=== PATIENT | male | born 1945 | race Caucasian/White ===

== ENCOUNTER 2021-01-26 16:34 | Inpatient (IN) | payer OTHER ==
[2021-01-26] MEDS ORDERED: ACETAMINOPHEN 1000 MG/100 ML VIAL IVPB ONE (18:45)
[2021-01-26] MEDS ORDERED: morphine CARPU-JECT 4 MG/1 ML DISP.SYRIN IVPUSH ONE (18:45)
[2021-01-26] MEDS ORDERED: ACETAMINOPHEN INJECTION 100 ML IVPB ONE (18:56)
[2021-01-26] MEDS ORDERED: morphine SULFATE 4 MG/ML VIAL ONE (18:56)
[2021-01-26] MEDS ORDERED: VANCOMYCIN 1 GM in D5W (PRE-DOCKED) 1,000 MG/250 ML IVPB ONE (19:03)
[2021-01-26] MEDS ORDERED: PIPERACILLIN/TAZOB 4.5 GM 4.5 GM in DEXTROSE 5%-WATER 100 ML IVPB ONE (19:03)
[2021-01-26 19:17] LABS: BASO % 0.7 % (0-2.0); EOS % 1.6 % (0-4.5); HEMATOCRIT 33.5 % (35.4-49); HEMOGLOBIN 11.1 GM/dL (11.7-16.9); LYMPH % 17.7 % (8-40); MEAN CELL VOLUME 93.7 fl (80-96); MEAN PLT VOLUME 8.7 fl (7.5-11.1); PLATELET COUNT 270 10^3/uL (134-434); RBC 3.58 M/mm3 (4.00-5.60); RDW 15.5 % (11.9-15.9); WHITE BLOOD COUNT 13.6 K/mm3 (4.0-10.0)
[2021-01-26 19:26] LABS: INR 1.19 (0.83-1.09)
[2021-01-26 19:29] LABS: ACTIVATED PTT 31.4 SECONDS (25.2-36.5)
[2021-01-26 19:40] LABS: CALCIUM 9.5 mg/dL (8.5-10.1)
[2021-01-26 19:41] LABS: ALBUMIN 3.1 g/dl (3.4-5.0); BLOOD UREA NITROGEN 23.4 mg/dL (7-18)
[2021-01-26] MEDS ORDERED: VANCOMYCIN 1 GRAM (PRE-DOCKED) 1,000 MG/250 ML BAG IVPB ONE (19:41)
[2021-01-26] MEDS ORDERED: PIPERACILLIN/TAZOB 4.5 GM 4.5 GM/100 ML BAG IVPB ONE (19:41)
[2021-01-26 19:44] LABS: CREATININE 1.2 mg/dL (0.55-1.3)
[2021-01-26 19:45] LABS: BILIRUBIN,TOTAL 0.3 mg/dL (0.2-1); TOT PROT 7.9 g/dl (6.4-8.2)
[2021-01-26 21:47] LABS: ERYTHROCYTE SEDIMENTATION RATE 95 mm/hr (0-20)
[2021-01-26] MEDS ORDERED: LISINOPRIL 10 MG TABLET PO SCH (22:00)
[2021-01-26] MEDS ORDERED: LISINOPRIL 5 MG TABLET PO SCH (22:00)
[2021-01-27] MEDS: INSULIN SLIDING SCALE (NOVOLOG) 1 VIAL SQ SCH ×5 (00:09→21:29)
[2021-01-27] MEDS: ATORVASTATIN CA 80 MG TABLET (FP) PO SCH ×2 (00:10→21:21)
[2021-01-27] MEDS: LISINOPRIL 20 MG TABLET PO SCH ×2 (00:10→21:22)
[2021-01-27] MEDS: GABAPENTIN 300 MG CAPSULE PO SCH ×3 (00:10→21:22)
[2021-01-27] MEDS ORDERED: PIPERACILLIN/TAZOB 3.375 GM 3.375 GM in DEXTROSE 5%-WATER - 50 ML IVPB SCH ×2 (02:00→10:00)
[2021-01-27] MEDS: HYDROCHLOROTHIAZIDE 12.5 MG CAPSULE (FP) PO SCH (06:34)
[2021-01-27 06:53] LABS: BASO % 0.6 % (0-2.0); EOS % 3.3 % (0-4.5); HEMATOCRIT 29.3 % (35.4-49); LYMPH % 20.4 % (8-40); MCH 31.7 pg (25.7-33.7); MCHC 34.1 g/dl (32.0-35.9); MEAN CELL VOLUME 92.8 fl (80-96); MEAN PLT VOLUME 8.9 fl (7.5-11.1); NEUT % 65.7 % (42.8-82.8); PLATELET COUNT 249 10^3/uL (134-434); RBC 3.16 M/mm3 (4.00-5.60); RDW 15.4 % (11.9-15.9); WHITE BLOOD COUNT 11.4 K/mm3 (4.0-10.0)
[2021-01-27 06:56] LABS: ALBUMIN 2.5 g/dl (3.4-5.0); BLOOD UREA NITROGEN 23.7 mg/dL (7-18); CALCIUM 8.4 mg/dL (8.5-10.1)
[2021-01-27 07:00] LABS: CREATININE 1.3 mg/dL (0.55-1.3); PHOSPHOROUS 3.7 mg/dL (2.5-4.9)
[2021-01-27] MEDS ORDERED: HYDROCHLOROTHIAZIDE 25 MG TABLET (FP) PO SCH (07:00)
[2021-01-27 07:01] LABS: BILIRUBIN,TOTAL 0.5 mg/dL (0.2-1); MAGNESIUM 1.7 mg/dL (1.8-2.4); TOT PROT 6.7 g/dl (6.4-8.2); URIC ACID 5.2 mg/dL (2.6-7.2)
[2021-01-27] MEDS ORDERED: MAGNESIUM 1GM/D5W 100ML - 100 ML IVPB IVPB ONE (07:19)
[2021-01-27] MEDS ORDERED: PIPERACILLIN/TAZOBACTAM 3.375 GM VIAL IVPB ONE ×2 (08:46→17:38)
[2021-01-27] MEDS ORDERED: DEXTROSE 5%-WATER - 50 ML IVPB ONE ×2 (08:46→17:39)
[2021-01-27] MEDS ORDERED: VANCOMYCIN 1,000 MG in DEXTROSE 5%-WATER - 250 ML IVPB SCH (09:00)
[2021-01-27] MEDS: ALLOPURINOL 300 MG TABLET (FP) PO SCH (09:15)
[2021-01-27] MEDS: ASPIRIN COATED 81 MG TABLET.EC PO SCH (09:16)
[2021-01-27] MEDS: ENOXAPARIN NA (PORCINE) 40 MG/0.4 ML DISP.SYRIN SQ SCH (09:18)
[2021-01-27] MEDS: METOPROLOL TARTRATE 25 MG TABLET (FP) PO SCH ×2 (09:18→21:22)
[2021-01-27] MEDS: VANCOMYCIN 1 GRAM (PRE-DOCKED) 1,000 MG/250 ML BAG IVPB SCH ×2 (10:43→21:22)
[2021-01-27] MEDS ORDERED: ACETAMINOPHEN 1000 MG/100 ML VIAL IVPB ONE (14:07)
[2021-01-27] MEDS: COLLAGENASE CLOSTRIDIUM HIST. 30 GRAMS TUBE TP SCH (17:26)
[2021-01-27] MEDS: PIPERACILLIN/TAZOB 3.375 GM 3.375 GM in DEXTROSE 5%-WATER - 50 ML IVPB SCH (18:09)
[2021-01-27] MEDS ORDERED: INSULIN (NOVOLOG) ASPART 100 UNITS/ML 10ML VIAL ONE (21:16)
[2021-01-27] MEDS ORDERED: morphine SULFATE 4 MG/ML VIAL IVPUSH ONE (22:22)
[2021-01-28] MEDS ORDERED: PIPERACILLIN/TAZOBACTAM 3.375 GM VIAL IVPB ONE ×3 (01:54→17:35)
[2021-01-28] MEDS ORDERED: DEXTROSE 5%-WATER - 50 ML IVPB ONE ×3 (01:55→17:35)
[2021-01-28] MEDS: PIPERACILLIN/TAZOB 3.375 GM 3.375 GM in DEXTROSE 5%-WATER - 50 ML IVPB SCH ×3 (02:13→17:56)
[2021-01-28] MEDS: HYDROCHLOROTHIAZIDE 12.5 MG CAPSULE (FP) PO SCH (06:06)
[2021-01-28] MEDS: INSULIN SLIDING SCALE (NOVOLOG) 1 VIAL SQ SCH ×4 (06:48→22:59)
[2021-01-28 07:47] LABS: BASO % 0.9 % (0-2.0); HEMATOCRIT 28.5 % (35.4-49); HEMOGLOBIN 9.9 GM/dL (11.7-16.9); LYMPH % 22.2 % (8-40); MCH 31.6 pg (25.7-33.7); MCHC 34.8 g/dl (32.0-35.9); MEAN CELL VOLUME 90.8 fl (80-96); MEAN PLT VOLUME 8.4 fl (7.5-11.1); MONO % 9.1 % (3.8-10.2); NEUT % 65.8 % (42.8-82.8); PLATELET COUNT 253 10^3/uL (134-434); RBC 3.14 M/mm3 (4.00-5.60); RDW 15.5 % (11.9-15.9); WHITE BLOOD COUNT 12.9 K/mm3 (4.0-10.0)
[2021-01-28 08:15] LABS: CALCIUM 8.4 mg/dL (8.5-10.1)
[2021-01-28 08:16] LABS: ALBUMIN 2.5 g/dl (3.4-5.0); BLOOD UREA NITROGEN 31.7 mg/dL (7-18)
[2021-01-28 08:18] LABS: MAGNESIUM 1.8 mg/dL (1.8-2.4)
[2021-01-28 08:20] LABS: CREATININE 1.6 mg/dL (0.55-1.3); PHOSPHOROUS 3.7 mg/dL (2.5-4.9)
[2021-01-28 08:21] LABS: BILIRUBIN,TOTAL 0.7 mg/dL (0.2-1); TOT PROT 6.5 g/dl (6.4-8.2)
[2021-01-28] MEDS: GABAPENTIN 300 MG CAPSULE PO SCH ×2 (10:15→22:56)
[2021-01-28] MEDS: ASPIRIN COATED 81 MG TABLET.EC PO SCH (10:15)
[2021-01-28] MEDS: METOPROLOL TARTRATE 25 MG TABLET (FP) PO SCH ×2 (10:15→22:56)
[2021-01-28] MEDS: ALLOPURINOL 300 MG TABLET (FP) PO SCH (10:15)
[2021-01-28] MEDS: ENOXAPARIN NA (PORCINE) 40 MG/0.4 ML DISP.SYRIN SQ SCH (10:17)
[2021-01-28] MEDS: COLLAGENASE CLOSTRIDIUM HIST. 30 GRAMS TUBE TP SCH (12:48)
[2021-01-28] MEDS ORDERED: POVIDONE-IODINE 10% SOLN 118 ML BOTTLE TP ONE (17:28)
[2021-01-28] MEDS ORDERED: traMADol HCL 50 MG TABLET PO PRN (17:29)
[2021-01-28] MEDS ORDERED: MELATONIN 5 MG TABLETS PO PRN (17:30)
[2021-01-28] MEDS: ACETAMINOPHEN 325 MG TABLET (FP) PO PRN (18:33)
[2021-01-28] MEDS ORDERED: INSULIN (NOVOLOG) ASPART 100 UNITS/ML 10ML VIAL ONE (21:47)
[2021-01-28] MEDS: ATORVASTATIN CA 80 MG TABLET (FP) PO SCH (22:56)
[2021-01-29] MEDS ORDERED: DEXTROSE 5%-WATER - 50 ML IVPB ONE ×2 (01:54→09:14)
[2021-01-29] MEDS ORDERED: PIPERACILLIN/TAZOBACTAM 3.375 GM VIAL IVPB ONE ×2 (01:54→09:14)
[2021-01-29] MEDS: PIPERACILLIN/TAZOB 3.375 GM 3.375 GM in DEXTROSE 5%-WATER - 50 ML IVPB SCH ×2 (02:51→09:18)
[2021-01-29] MEDS: INSULIN SLIDING SCALE (NOVOLOG) 1 VIAL SQ SCH ×4 (06:34→21:46)
[2021-01-29 09:06] LABS: BASO % 0.6 % (0-2.0); EOS % 3.7 % (0-4.5); HEMATOCRIT 28.4 % (35.4-49); HEMOGLOBIN 9.6 GM/dL (11.7-16.9); LYMPH % 22.6 % (8-40); MCH 31.5 pg (25.7-33.7); MCHC 33.7 g/dl (32.0-35.9); MEAN CELL VOLUME 93.4 fl (80-96); MEAN PLT VOLUME 8.6 fl (7.5-11.1); MONO % 9.2 % (3.8-10.2); NEUT % 63.9 % (42.8-82.8); PLATELET COUNT 279 10^3/uL (134-434); RBC 3.04 M/mm3 (4.00-5.60); RDW 15.2 % (11.9-15.9)
[2021-01-29] MEDS: ENOXAPARIN NA (PORCINE) 40 MG/0.4 ML DISP.SYRIN SQ SCH (09:18)
[2021-01-29] MEDS: ASPIRIN COATED 81 MG TABLET.EC PO SCH (09:18)
[2021-01-29] MEDS: GABAPENTIN 300 MG CAPSULE PO SCH ×2 (09:18→21:40)
[2021-01-29] MEDS: METOPROLOL TARTRATE 25 MG TABLET (FP) PO SCH ×2 (09:18→21:40)
[2021-01-29] MEDS: ALLOPURINOL 300 MG TABLET (FP) PO SCH (09:19)
[2021-01-29] MEDS: COLLAGENASE CLOSTRIDIUM HIST. 30 GRAMS TUBE TP SCH (09:20)
[2021-01-29 09:30] LABS: ALBUMIN 2.4 g/dl (3.4-5.0); BLOOD UREA NITROGEN 38.4 mg/dL (7-18); CALCIUM 8.3 mg/dL (8.5-10.1); MAGNESIUM 1.9 mg/dL (1.8-2.4)
[2021-01-29 09:33] LABS: CREATININE 1.9 mg/dL (0.55-1.3); PHOSPHOROUS 4.3 mg/dL (2.5-4.9)
[2021-01-29 09:34] LABS: BILIRUBIN,TOTAL 0.5 mg/dL (0.2-1)
[2021-01-29 09:36] LABS: TOT PROT 6.6 g/dl (6.4-8.2)
[2021-01-29] MEDS ORDERED: SODIUM CHLORIDE 100 ML IVPB ONE (18:28)
[2021-01-29] MEDS ORDERED: AMPICILLIN NA/SULBACTAM NA 3 GM VIAL ONE (18:28)
[2021-01-29] MEDS: AMPICILLIN NA/SULBACTAM NA 3 GM in SODIUM CHLORIDE 100 ML IVPB SCH (18:33)
[2021-01-29] MEDS: ATORVASTATIN CA 80 MG TABLET (FP) PO SCH (21:40)
[2021-01-29] MEDS: ACETAMINOPHEN 325 MG TABLET (FP) PO PRN (21:40)
[2021-01-29] MEDS: HEPARIN NA (PORCINE) 5,000 UNITS/ML 1ML VIAL SQ SCH (21:40)
[2021-01-29] MEDS: valACYclovir HCL 500 MG TABLET (FP) PO SCH (21:40)
[2021-01-30] MEDS ORDERED: AMPICILLIN NA/SULBACTAM NA 3 GM VIAL ONE ×3 (00:50→17:43)
[2021-01-30] MEDS ORDERED: SODIUM CHLORIDE 100 ML IVPB ONE ×3 (00:50→17:43)
[2021-01-30] MEDS: AMPICILLIN NA/SULBACTAM NA 3 GM in SODIUM CHLORIDE 100 ML IVPB SCH ×3 (01:02→18:01)
[2021-01-30] MEDS: HYDROCHLOROTHIAZIDE 12.5 MG CAPSULE (FP) PO SCH (06:27)
[2021-01-30] MEDS: HEPARIN NA (PORCINE) 5,000 UNITS/ML 1ML VIAL SQ SCH ×3 (06:27→21:37)
[2021-01-30] MEDS: INSULIN SLIDING SCALE (NOVOLOG) 1 VIAL SQ SCH ×4 (06:40→21:35)
[2021-01-30 09:05] LABS: BASO % 0.8 % (0-2.0); HEMATOCRIT 30.2 % (35.4-49); HEMOGLOBIN 10.2 GM/dL (11.7-16.9); LYMPH % 16.8 % (8-40); MCH 31.8 pg (25.7-33.7); MCHC 33.8 g/dl (32.0-35.9); MEAN CELL VOLUME 93.9 fl (80-96); MEAN PLT VOLUME 8.7 fl (7.5-11.1); MONO % 8.3 % (3.8-10.2); NEUT % 70.1 % (42.8-82.8); PLATELET COUNT 345 10^3/uL (134-434); RBC 3.22 M/mm3 (4.00-5.60); RDW 15.2 % (11.9-15.9); WHITE BLOOD COUNT 10.5 K/mm3 (4.0-10.0)
[2021-01-30] MEDS: ALLOPURINOL 300 MG TABLET (FP) PO SCH (09:06)
[2021-01-30] MEDS: METOPROLOL TARTRATE 25 MG TABLET (FP) PO SCH ×2 (09:06→21:38)
[2021-01-30] MEDS: GABAPENTIN 300 MG CAPSULE PO SCH ×2 (09:06→21:36)
[2021-01-30] MEDS: ASPIRIN COATED 81 MG TABLET.EC PO SCH (09:06)
[2021-01-30] MEDS: TAMSULOSIN HCL 0.4 MG CAP PO SCH (09:06)
[2021-01-30] MEDS: valACYclovir HCL 500 MG TABLET (FP) PO SCH (09:10)
[2021-01-30] MEDS: COLLAGENASE CLOSTRIDIUM HIST. 30 GRAMS TUBE TP SCH (09:11)
[2021-01-30 09:29] LABS: CALCIUM 9.3 mg/dL (8.5-10.1)
[2021-01-30 09:31] LABS: ALBUMIN 2.7 g/dl (3.4-5.0); BLOOD UREA NITROGEN 31.7 mg/dL (7-18)
[2021-01-30 09:33] LABS: CREATININE 1.4 mg/dL (0.55-1.3)
[2021-01-30 09:35] LABS: BILIRUBIN,TOTAL 0.4 mg/dL (0.2-1); TOT PROT 7.5 g/dl (6.4-8.2)
[2021-01-30] MEDS ORDERED: LISINOPRIL 20 MG TABLET PO SCH (17:06)
[2021-01-30] MEDS ORDERED: HYDROCHLOROTHIAZIDE 12.5 MG CAPSULE (FP) PO SCH (17:09)
[2021-01-30] MEDS: ATORVASTATIN CA 80 MG TABLET (FP) PO SCH (21:38)
[2021-01-30] MEDS: ACETAMINOPHEN 325 MG TABLET (FP) PO PRN (21:39)
[2021-01-31] MEDS ORDERED: AMPICILLIN NA/SULBACTAM NA 3 GM VIAL ONE ×3 (00:45→17:01)
[2021-01-31] MEDS: AMPICILLIN NA/SULBACTAM NA 3 GM in SODIUM CHLORIDE 100 ML IVPB SCH ×3 (01:04→17:10)
[2021-01-31] MEDS: HEPARIN NA (PORCINE) 5,000 UNITS/ML 1ML VIAL SQ SCH ×3 (05:50→21:22)
[2021-01-31] MEDS: INSULIN SLIDING SCALE (NOVOLOG) 1 VIAL SQ SCH ×4 (06:04→21:24)
[2021-01-31 08:08] LABS: HEMATOCRIT 28.5 % (35.4-49); HEMOGLOBIN 9.8 GM/dL (11.7-16.9); MCH 31.6 pg (25.7-33.7); MCHC 34.5 g/dl (32.0-35.9); MEAN CELL VOLUME 91.7 fl (80-96); MEAN PLT VOLUME 8.3 fl (7.5-11.1); PLATELET COUNT 356 10^3/uL (134-434); RBC 3.11 M/mm3 (4.00-5.60); RDW 15.4 % (11.9-15.9); WHITE BLOOD COUNT 9.1 K/mm3 (4.0-10.0)
[2021-01-31 08:35] LABS: CALCIUM 8.9 mg/dL (8.5-10.1)
[2021-01-31 08:36] LABS: ALBUMIN 2.3 g/dl (3.4-5.0); BLOOD UREA NITROGEN 24.1 mg/dL (7-18)
[2021-01-31 08:39] LABS: CREATININE 1.1 mg/dL (0.55-1.3)
[2021-01-31 08:40] LABS: BILIRUBIN,TOTAL 0.3 mg/dL (0.2-1); TOT PROT 6.8 g/dl (6.4-8.2)
[2021-01-31] MEDS ORDERED: SODIUM CHLORIDE 100 ML IVPB ONE ×2 (08:54→17:01)
[2021-01-31] MEDS: TAMSULOSIN HCL 0.4 MG CAP PO SCH (09:39)
[2021-01-31] MEDS: METOPROLOL TARTRATE 25 MG TABLET (FP) PO SCH ×2 (09:39→21:24)
[2021-01-31] MEDS: ALLOPURINOL 300 MG TABLET (FP) PO SCH (09:39)
[2021-01-31] MEDS: ASPIRIN COATED 81 MG TABLET.EC PO SCH (09:39)
[2021-01-31] MEDS: GABAPENTIN 300 MG CAPSULE PO SCH ×2 (09:40→21:23)
[2021-01-31] MEDS: COLLAGENASE CLOSTRIDIUM HIST. 30 GRAMS TUBE TP SCH (09:41)
[2021-01-31] MEDS: ACETAMINOPHEN 325 MG TABLET (FP) PO PRN (13:41)
[2021-01-31] MEDS: SODIUM CHLORIDE 1,000 ML IV SCH (18:07)
[2021-01-31] MEDS: ATORVASTATIN CA 80 MG TABLET (FP) PO SCH (21:24)
[2021-02-01] MEDS ORDERED: AMPICILLIN NA/SULBACTAM NA 3 GM VIAL ONE ×3 (01:40→16:51)
[2021-02-01] MEDS ORDERED: SODIUM CHLORIDE 100 ML IVPB ONE ×3 (01:41→16:51)
[2021-02-01] MEDS: AMPICILLIN NA/SULBACTAM NA 3 GM in SODIUM CHLORIDE 100 ML IVPB SCH ×4 (01:42→17:11)
[2021-02-01] MEDS: HEPARIN NA (PORCINE) 5,000 UNITS/ML 1ML VIAL SQ SCH ×3 (05:28→21:05)
[2021-02-01] MEDS: INSULIN SLIDING SCALE (NOVOLOG) 1 VIAL SQ SCH ×4 (06:20→21:06)
[2021-02-01 08:54] LABS: BASO % 0.9 % (0-2.0); EOS % 5.9 % (0-4.5); HEMATOCRIT 28.1 % (35.4-49); HEMOGLOBIN 9.6 GM/dL (11.7-16.9); LYMPH % 24.2 % (8-40); MCH 31.6 pg (25.7-33.7); MCHC 34.1 g/dl (32.0-35.9); MEAN CELL VOLUME 92.7 fl (80-96); MONO % 8.4 % (3.8-10.2); NEUT % 60.6 % (42.8-82.8); PLATELET COUNT 368 10^3/uL (134-434); RBC 3.03 M/mm3 (4.00-5.60); RDW 15.6 % (11.9-15.9)
[2021-02-01 09:15] LABS: CALCIUM 9.1 mg/dL (8.5-10.1)
[2021-02-01] MEDS: SODIUM CHLORIDE 1,000 ML IV SCH ×2 (09:15→18:27)
[2021-02-01 09:16] LABS: ALBUMIN 2.3 g/dl (3.4-5.0); BLOOD UREA NITROGEN 18.7 mg/dL (7-18); MAGNESIUM 2.1 mg/dL (1.8-2.4)
[2021-02-01 09:19] LABS: PHOSPHOROUS 3.4 mg/dL (2.5-4.9)
[2021-02-01 09:20] LABS: BILIRUBIN,TOTAL 0.3 mg/dL (0.2-1); TOT PROT 6.8 g/dl (6.4-8.2)
[2021-02-01] MEDS: METOPROLOL TARTRATE 25 MG TABLET (FP) PO SCH ×2 (10:11→21:06)
[2021-02-01] MEDS: ASPIRIN COATED 81 MG TABLET.EC PO SCH (10:11)
[2021-02-01] MEDS: TAMSULOSIN HCL 0.4 MG CAP PO SCH (10:11)
[2021-02-01] MEDS: COLLAGENASE CLOSTRIDIUM HIST. 30 GRAMS TUBE TP SCH (10:12)
[2021-02-01] MEDS: ALLOPURINOL 300 MG TABLET (FP) PO SCH (10:12)
[2021-02-01] MEDS: GABAPENTIN 300 MG CAPSULE PO SCH ×2 (10:12→21:06)
[2021-02-01] MEDS: ATORVASTATIN CA 80 MG TABLET (FP) PO SCH (21:06)
[2021-02-02] MEDS ORDERED: SODIUM CHLORIDE 100 ML IVPB ONE ×3 (00:55→18:02)
[2021-02-02] MEDS ORDERED: AMPICILLIN NA/SULBACTAM NA 3 GM VIAL ONE ×3 (00:55→18:02)
[2021-02-02] MEDS: SODIUM CHLORIDE 1,000 ML IV SCH ×2 (01:47→22:30)
[2021-02-02] MEDS: AMPICILLIN NA/SULBACTAM NA 3 GM in SODIUM CHLORIDE 100 ML IVPB SCH ×3 (01:48→18:05)
[2021-02-02] MEDS: HEPARIN NA (PORCINE) 5,000 UNITS/ML 1ML VIAL SQ SCH ×3 (05:31→21:22)
[2021-02-02] MEDS: INSULIN SLIDING SCALE (NOVOLOG) 1 VIAL SQ SCH ×4 (05:59→21:23)
[2021-02-02 08:54] LABS: BASO % 0.8 % (0-2.0); EOS % 5.9 % (0-4.5); HEMATOCRIT 28.1 % (35.4-49); HEMOGLOBIN 9.5 GM/dL (11.7-16.9); LYMPH % 24.3 % (8-40); MCH 31.5 pg (25.7-33.7); MCHC 33.8 g/dl (32.0-35.9); MEAN CELL VOLUME 93.3 fl (80-96); MEAN PLT VOLUME 7.9 fl (7.5-11.1); MONO % 8.1 % (3.8-10.2); NEUT % 60.9 % (42.8-82.8); PLATELET COUNT 402 10^3/uL (134-434); RBC 3.01 M/mm3 (4.00-5.60); RDW 15.3 % (11.9-15.9); WHITE BLOOD COUNT 9.2 K/mm3 (4.0-10.0)
[2021-02-02 09:10] LABS: CALCIUM 8.9 mg/dL (8.5-10.1)
[2021-02-02 09:11] LABS: ALBUMIN 2.4 g/dl (3.4-5.0); BLOOD UREA NITROGEN 13.7 mg/dL (7-18)
[2021-02-02 09:14] LABS: PHOSPHOROUS 2.9 mg/dL (2.5-4.9)
[2021-02-02 09:16] LABS: BILIRUBIN,TOTAL 0.3 mg/dL (0.2-1); TOT PROT 6.8 g/dl (6.4-8.2)
[2021-02-02] MEDS: METOPROLOL TARTRATE 25 MG TABLET (FP) PO SCH ×2 (10:44→21:23)
[2021-02-02] MEDS: TAMSULOSIN HCL 0.4 MG CAP PO SCH (10:44)
[2021-02-02] MEDS: ALLOPURINOL 300 MG TABLET (FP) PO SCH (10:45)
[2021-02-02] MEDS: ASPIRIN COATED 81 MG TABLET.EC PO SCH (10:45)
[2021-02-02] MEDS: GABAPENTIN 300 MG CAPSULE PO SCH ×2 (10:45→21:23)
[2021-02-02] MEDS ORDERED: HYDROCHLOROTHIAZIDE 12.5 MG CAPSULE (FP) PO SCH (12:45)
[2021-02-02] MEDS: HYDROCHLOROTHIAZIDE 12.5 MG CAPSULE (FP) PO SCH (16:09)
[2021-02-02] MEDS: COLLAGENASE CLOSTRIDIUM HIST. 30 GRAMS TUBE TP SCH (16:47)
[2021-02-02] MEDS ORDERED: INSULIN (NOVOLOG) ASPART 100 UNITS/ML 10ML VIAL ONE (20:51)
[2021-02-02] MEDS: ATORVASTATIN CA 80 MG TABLET (FP) PO SCH (21:23)
[2021-02-03] MEDS ORDERED: AMPICILLIN NA/SULBACTAM NA 3 GM VIAL ONE ×3 (01:03→17:35)
[2021-02-03] MEDS ORDERED: SODIUM CHLORIDE 100 ML IVPB ONE ×3 (01:03→17:35)
[2021-02-03] MEDS: AMPICILLIN NA/SULBACTAM NA 3 GM in SODIUM CHLORIDE 100 ML IVPB SCH ×2 (01:05→10:17)
[2021-02-03] MEDS: HEPARIN NA (PORCINE) 5,000 UNITS/ML 1ML VIAL SQ SCH ×2 (05:30→15:03)
[2021-02-03] MEDS: INSULIN SLIDING SCALE (NOVOLOG) 1 VIAL SQ SCH ×4 (06:22→22:10)
[2021-02-03 09:09] LABS: EOS % 4.9 % (0-4.5); HEMATOCRIT 29.1 % (35.4-49); HEMOGLOBIN 9.8 GM/dL (11.7-16.9); LYMPH % 21.5 % (8-40); MCH 31.8 pg (25.7-33.7); MCHC 33.8 g/dl (32.0-35.9); MEAN CELL VOLUME 94.1 fl (80-96); MEAN PLT VOLUME 7.8 fl (7.5-11.1); MONO % 7.2 % (3.8-10.2); NEUT % 65.4 % (42.8-82.8); PLATELET COUNT 425 10^3/uL (134-434); RBC 3.09 M/mm3 (4.00-5.60); RDW 15.5 % (11.9-15.9); WHITE BLOOD COUNT 9.3 K/mm3 (4.0-10.0)
[2021-02-03 09:30] LABS: ALBUMIN 2.6 g/dl (3.4-5.0); BLOOD UREA NITROGEN 13.5 mg/dL (7-18); CALCIUM 8.5 mg/dL (8.5-10.1); MAGNESIUM 1.9 mg/dL (1.8-2.4)
[2021-02-03 09:34] LABS: CREATININE 1.2 mg/dL (0.55-1.3); PHOSPHOROUS 2.5 mg/dL (2.5-4.9)
[2021-02-03 09:35] LABS: BILIRUBIN,TOTAL 0.3 mg/dL (0.2-1); TOT PROT 7.2 g/dl (6.4-8.2)
[2021-02-03] MEDS: ALLOPURINOL 300 MG TABLET (FP) PO SCH (10:14)
[2021-02-03] MEDS: HYDROCHLOROTHIAZIDE 12.5 MG CAPSULE (FP) PO SCH (10:15)
[2021-02-03] MEDS: METOPROLOL TARTRATE 25 MG TABLET (FP) PO SCH (10:16)
[2021-02-03] MEDS: TAMSULOSIN HCL 0.4 MG CAP PO SCH (10:16)
[2021-02-03] MEDS: GABAPENTIN 300 MG CAPSULE PO SCH ×2 (10:16→22:05)
[2021-02-03] MEDS: COLLAGENASE CLOSTRIDIUM HIST. 30 GRAMS TUBE TP SCH (10:21)
[2021-02-03] MEDS: ASPIRIN COATED 81 MG TABLET.EC PO SCH ×2 (10:21→12:09)
[2021-02-03] MEDS ORDERED: CLOPIDOGREL BISULFATE 300 MG TABLET PO STA (11:57)
[2021-02-03] MEDS ORDERED: MIDAZOLAM HCL 2 MG/2 ML SINGLE DOSE VIAL ONE ×2 (16:52→17:16)
[2021-02-03] MEDS ORDERED: LIDOCAINE HCL 1%, 10 MG/ML (20ML VIAL) NR ONE ×3 (17:10→17:19)
[2021-02-03] MEDS ORDERED: PROPOFOL 20 ML ONE ×3 (17:17→18:06)
[2021-02-03] MEDS ORDERED: SUCCINYLCHOLINE CHLORIDE 200 MG/10 ML SYRINGE ONE (17:57)
[2021-02-03] MEDS ORDERED: PIPERACILLIN/TAZOB 3.375 GM 3.375 GM in DEXTROSE 5%-WATER - 50 ML IVPB SCH (18:30)
[2021-02-03] MEDS ORDERED: ACETAMINOPHEN 325 MG TABLET (FP) PO PRN (18:54)
[2021-02-03] MEDS ORDERED: MELATONIN 5 MG TABLETS PO PRN (18:54)
[2021-02-03] MEDS ORDERED: INSULIN (NOVOLOG) ASPART 100 UNITS/ML 10ML VIAL ONE (20:38)
[2021-02-03] MEDS ORDERED: METOPROLOL TARTRATE 25 MG TABLET (FP) PO SCH (22:00)
[2021-02-03] MEDS: ATORVASTATIN CA 80 MG TABLET (FP) PO SCH (22:05)
[2021-02-04] MEDS ORDERED: PIPERACILLIN/TAZOBACTAM 3.375 GM VIAL IVPB ONE ×4 (00:33→21:33)
[2021-02-04] MEDS ORDERED: DEXTROSE 5%-WATER - 50 ML IVPB ONE ×4 (00:33→21:33)
[2021-02-04] MEDS: PIPERACILLIN/TAZOB 3.375 GM 3.375 GM in DEXTROSE 5%-WATER - 50 ML IVPB SCH ×3 (01:08→17:11)
[2021-02-04] MEDS ORDERED: PIPERACILLIN/TAZOB 3.375 GM 3.375 GM in DEXTROSE 5%-WATER - 50 ML IVPB SCH (02:00)
[2021-02-04] MEDS: traMADol HCL 50 MG TABLET PO PRN (05:18)
[2021-02-04] MEDS ORDERED: SODIUM CHLORIDE 500 ML IV STA ×2 (05:49→09:23)
[2021-02-04] MEDS: INSULIN SLIDING SCALE (NOVOLOG) 1 VIAL SQ SCH ×4 (06:04→21:40)
[2021-02-04] MEDS ORDERED: ACETAMINOPHEN 1000 MG/100 ML VIAL IVPB ONE (06:16)
[2021-02-04] MEDS: AMPICILLIN NA/SULBACTAM NA 3 GM in SODIUM CHLORIDE 100 ML IVPB SCH (07:25)
[2021-02-04] MEDS ORDERED: TAMSULOSIN HCL 0.4 MG CAP PO SCH (08:30)
[2021-02-04 09:17] LABS: EOS % 2.6 % (0-4.5); HEMATOCRIT 20.8 % (35.4-49); LYMPH % 13.4 % (8-40); MCH 31.2 pg (25.7-33.7); MCHC 33.8 g/dl (32.0-35.9); MEAN CELL VOLUME 92.3 fl (80-96); MEAN PLT VOLUME 7.5 fl (7.5-11.1); MONO % 4.2 % (3.8-10.2); NEUT % 78.8 % (42.8-82.8); PLATELET COUNT 366 10^3/uL (134-434); RBC 2.26 M/mm3 (4.00-5.60); WHITE BLOOD COUNT 10.6 K/mm3 (4.0-10.0)
[2021-02-04] MEDS ORDERED: HYDROCHLOROTHIAZIDE 12.5 MG CAPSULE (FP) PO SCH (10:00)
[2021-02-04] MEDS ORDERED: ASPIRIN COATED 81 MG TABLET.EC PO SCH (10:00)
[2021-02-04 10:03] LABS: CALCIUM 8.3 mg/dL (8.5-10.1)
[2021-02-04 10:07] LABS: BILIRUBIN,TOTAL 0.3 mg/dL (0.2-1); BLOOD UREA NITROGEN 15.1 mg/dL (7-18); CREATININE 1.3 mg/dL (0.55-1.3); PHOSPHOROUS 3.8 mg/dL (2.5-4.9)
[2021-02-04 10:08] LABS: TOT PROT 5.8 g/dl (6.4-8.2)
[2021-02-04] MEDS ORDERED: morphine SULFATE 4 MG/ML VIAL IVPUSH ONE (10:10)
[2021-02-04] MEDS ORDERED: morphine SULFATE 4 MG/ML VIAL ONE (10:17)
[2021-02-04] MEDS ORDERED: SODIUM CHLORIDE 1,000 ML IV SCH (10:23)
[2021-02-04] MEDS: ALLOPURINOL 300 MG TABLET (FP) PO SCH (11:32)
[2021-02-04] MEDS: COLLAGENASE CLOSTRIDIUM HIST. 30 GRAMS TUBE TP SCH (11:32)
[2021-02-04] MEDS: GABAPENTIN 300 MG CAPSULE PO SCH ×2 (11:32→21:40)
[2021-02-04 20:29] LABS: BASO % 1.2 % (0-2.0); EOS % 1.4 % (0-4.5); HEMATOCRIT 25.3 % (35.4-49); HEMOGLOBIN 8.8 GM/dL (11.7-16.9); LYMPH % 17.1 % (8-40); MCH 31.3 pg (25.7-33.7); MCHC 34.6 g/dl (32.0-35.9); MEAN CELL VOLUME 90.4 fl (80-96); MEAN PLT VOLUME 7.3 fl (7.5-11.1); NEUT % 74.3 % (42.8-82.8); PLATELET COUNT 359 10^3/uL (134-434); RDW 17.8 % (11.9-15.9); WHITE BLOOD COUNT 10.2 K/mm3 (4.0-10.0)
[2021-02-04 20:36] LABS: INR 1.16 (0.83-1.09); PROTHROMBIN TIME (PATIENT) 13.6 SEC (9.7-13.0)
[2021-02-04] MEDS ORDERED: PT OWN MED DRAWER 7, Y5N ONE (21:31)
[2021-02-04] MEDS: ATORVASTATIN CA 80 MG TABLET (FP) PO SCH (21:40)
[2021-02-04] MEDS: INSULIN (LEVEMIR) 100 UNITS/ML UNITS SQ SCH (21:40)
[2021-02-05] MEDS: PIPERACILLIN/TAZOB 3.375 GM 3.375 GM in DEXTROSE 5%-WATER - 50 ML IVPB SCH ×3 (01:27→17:29)
[2021-02-05 06:20] LABS: BASO % 0.9 % (0-2.0); EOS % 5.8 % (0-4.5); HEMATOCRIT 23.7 % (35.4-49); HEMOGLOBIN 8.1 GM/dL (11.7-16.9); LYMPH % 21.2 % (8-40); MCH 31.3 pg (25.7-33.7); MCHC 34.3 g/dl (32.0-35.9); MEAN CELL VOLUME 91.4 fl (80-96); MEAN PLT VOLUME 7.9 fl (7.5-11.1); MONO % 7.4 % (3.8-10.2); NEUT % 64.7 % (42.8-82.8); PLATELET COUNT 356 10^3/uL (134-434); RDW 17.6 % (11.9-15.9); WHITE BLOOD COUNT 9.6 K/mm3 (4.0-10.0)
[2021-02-05 06:44] LABS: CALCIUM 8.1 mg/dL (8.5-10.1)
[2021-02-05 06:45] LABS: ALBUMIN 2.2 g/dl (3.4-5.0); BLOOD UREA NITROGEN 20.9 mg/dL (7-18)
[2021-02-05 06:48] LABS: CREATININE 1.4 mg/dL (0.55-1.3); PHOSPHOROUS 2.8 mg/dL (2.5-4.9)
[2021-02-05 06:49] LABS: BILIRUBIN,TOTAL 0.3 mg/dL (0.2-1); TOT PROT 6.2 g/dl (6.4-8.2)
[2021-02-05] MEDS: INSULIN (LEVEMIR) 100 UNITS/ML UNITS SQ SCH ×2 (07:05→21:20)
[2021-02-05] MEDS: INSULIN SLIDING SCALE (NOVOLOG) 1 VIAL SQ SCH ×4 (07:05→21:17)
[2021-02-05] MEDS ORDERED: SODIUM CHLORIDE 1,000 ML IV SCH (08:15)
[2021-02-05] MEDS ORDERED: DEXTROSE 5%-WATER - 50 ML IVPB ONE ×2 (09:01→18:03)
[2021-02-05] MEDS ORDERED: PIPERACILLIN/TAZOBACTAM 3.375 GM VIAL IVPB ONE ×2 (09:01→18:03)
[2021-02-05] MEDS: ACETAMINOPHEN 1000 MG/100 ML VIAL IVPB PRN ×2 (09:19→18:10)
[2021-02-05] MEDS: GABAPENTIN 300 MG CAPSULE PO SCH ×2 (10:20→21:16)
[2021-02-05] MEDS: ALLOPURINOL 300 MG TABLET (FP) PO SCH (10:20)
[2021-02-05] MEDS: COLLAGENASE CLOSTRIDIUM HIST. 30 GRAMS TUBE TP SCH (10:21)
[2021-02-05] MEDS: HYDROCHLOROTHIAZIDE 25 MG TABLET (FP) PO SCH ×2 (14:19→21:21)
[2021-02-05] MEDS: traMADol HCL 50 MG TABLET PO PRN (16:17)
[2021-02-05] MEDS: ATORVASTATIN CA 80 MG TABLET (FP) PO SCH (21:16)
[2021-02-05 23:24] LABS: BASO % 0.9 % (0-2.0); HEMATOCRIT 25.8 % (35.4-49); HEMOGLOBIN 8.8 GM/dL (11.7-16.9); MCH 30.9 pg (25.7-33.7); MCHC 34.3 g/dl (32.0-35.9); MEAN CELL VOLUME 90.1 fl (80-96); MEAN PLT VOLUME 7.2 fl (7.5-11.1); MONO % 6.8 % (3.8-10.2); NEUT % 66.3 % (42.8-82.8); PLATELET COUNT 364 10^3/uL (134-434); RBC 2.86 M/mm3 (4.00-5.60); RDW 17.2 % (11.9-15.9); WHITE BLOOD COUNT 12.1 K/mm3 (4.0-10.0)
[2021-02-06] MEDS ORDERED: PIPERACILLIN/TAZOBACTAM 3.375 GM VIAL IVPB ONE ×3 (01:25→17:26)
[2021-02-06] MEDS ORDERED: DEXTROSE 5%-WATER - 50 ML IVPB ONE ×3 (01:25→17:26)
[2021-02-06] MEDS: PIPERACILLIN/TAZOB 3.375 GM 3.375 GM in DEXTROSE 5%-WATER - 50 ML IVPB SCH ×3 (01:30→17:36)
[2021-02-06] MEDS: ACETAMINOPHEN 1000 MG/100 ML VIAL IVPB PRN (04:08)
[2021-02-06] MEDS: INSULIN SLIDING SCALE (NOVOLOG) 1 VIAL SQ SCH ×4 (06:09→21:43)
[2021-02-06] MEDS: INSULIN (LEVEMIR) 100 UNITS/ML UNITS SQ SCH ×2 (06:09→21:43)
[2021-02-06 06:50] LABS: BASO % 1.2 % (0-2.0); EOS % 5.9 % (0-4.5); HEMATOCRIT 26.1 % (35.4-49); LYMPH % 19.8 % (8-40); MCH 31.3 pg (25.7-33.7); MCHC 34.5 g/dl (32.0-35.9); MEAN CELL VOLUME 90.7 fl (80-96); MEAN PLT VOLUME 7.8 fl (7.5-11.1); MONO % 6.8 % (3.8-10.2); NEUT % 66.3 % (42.8-82.8); PLATELET COUNT 375 10^3/uL (134-434); RBC 2.87 M/mm3 (4.00-5.60); RDW 17.9 % (11.9-15.9); WHITE BLOOD COUNT 11.2 K/mm3 (4.0-10.0)
[2021-02-06 07:18] LABS: ALBUMIN 2.4 g/dl (3.4-5.0); BLOOD UREA NITROGEN 11.2 mg/dL (7-18); CALCIUM 8.5 mg/dL (8.5-10.1); MAGNESIUM 2.1 mg/dL (1.8-2.4)
[2021-02-06 07:22] LABS: PHOSPHOROUS 2.7 mg/dL (2.5-4.9)
[2021-02-06 07:23] LABS: BILIRUBIN,TOTAL 0.5 mg/dL (0.2-1); TOT PROT 6.5 g/dl (6.4-8.2)
[2021-02-06] MEDS: HYDROCHLOROTHIAZIDE 25 MG TABLET (FP) PO SCH ×2 (09:24→21:42)
[2021-02-06] MEDS: ALLOPURINOL 300 MG TABLET (FP) PO SCH (09:24)
[2021-02-06] MEDS: MULTIVITAMINS (DAILY MVI) TABLET (FP) PO SCH (09:24)
[2021-02-06] MEDS: COLLAGENASE CLOSTRIDIUM HIST. 30 GRAMS TUBE TP SCH (09:25)
[2021-02-06] MEDS: GABAPENTIN 300 MG CAPSULE PO SCH ×2 (09:27→21:43)
[2021-02-06] MEDS: CLOPIDOGREL BISULFATE 75 MG TABLET (FP) PO SCH (09:33)
[2021-02-06] MEDS: ASPIRIN COATED 81 MG TABLET.EC PO SCH (09:33)
[2021-02-06] MEDS: ATORVASTATIN CA 80 MG TABLET (FP) PO SCH (21:42)
[2021-02-06] MEDS: METOPROLOL TARTRATE 25 MG TABLET (FP) PO SCH (21:42)
[2021-02-07] MEDS ORDERED: DEXTROSE 5%-WATER - 50 ML IVPB ONE ×3 (02:12→17:25)
[2021-02-07] MEDS ORDERED: PIPERACILLIN/TAZOBACTAM 3.375 GM VIAL IVPB ONE ×3 (02:12→17:25)
[2021-02-07] MEDS: PIPERACILLIN/TAZOB 3.375 GM 3.375 GM in DEXTROSE 5%-WATER - 50 ML IVPB SCH ×3 (02:16→18:00)
[2021-02-07] MEDS: INSULIN (LEVEMIR) 100 UNITS/ML UNITS SQ SCH ×2 (06:08→22:32)
[2021-02-07] MEDS: INSULIN SLIDING SCALE (NOVOLOG) 1 VIAL SQ SCH ×4 (06:08→22:31)
[2021-02-07] MEDS: GABAPENTIN 300 MG CAPSULE PO SCH ×2 (09:46→22:31)
[2021-02-07] MEDS: ALLOPURINOL 300 MG TABLET (FP) PO SCH (09:46)
[2021-02-07] MEDS: ASPIRIN COATED 81 MG TABLET.EC PO SCH (09:46)
[2021-02-07] MEDS: MULTIVITAMINS (DAILY MVI) TABLET (FP) PO SCH (09:46)
[2021-02-07] MEDS: CLOPIDOGREL BISULFATE 75 MG TABLET (FP) PO SCH (09:46)
[2021-02-07] MEDS: HYDROCHLOROTHIAZIDE 25 MG TABLET (FP) PO SCH ×2 (09:46→22:30)
[2021-02-07] MEDS: METOPROLOL TARTRATE 25 MG TABLET (FP) PO SCH ×2 (09:46→22:30)
[2021-02-07] MEDS: COLLAGENASE CLOSTRIDIUM HIST. 30 GRAMS TUBE TP SCH (09:47)
[2021-02-07] MEDS ORDERED: ACETAMINOPHEN 325 MG TABLET (FP) PO PRN (10:45)
[2021-02-07 11:00] LABS: BASO % 0.9 % (0-2.0); EOS % 4.6 % (0-4.5); HEMATOCRIT 25.9 % (35.4-49); HEMOGLOBIN 8.8 GM/dL (11.7-16.9); LYMPH % 18.6 % (8-40); MCH 31.1 pg (25.7-33.7); MEAN CELL VOLUME 91.5 fl (80-96); MEAN PLT VOLUME 7.9 fl (7.5-11.1); MONO % 6.7 % (3.8-10.2); NEUT % 69.2 % (42.8-82.8); PLATELET COUNT 400 10^3/uL (134-434); RBC 2.83 M/mm3 (4.00-5.60); RDW 17.5 % (11.9-15.9)
[2021-02-07 11:29] LABS: ALBUMIN 2.3 g/dl (3.4-5.0); CALCIUM 8.7 mg/dL (8.5-10.1)
[2021-02-07 11:30] LABS: MAGNESIUM 1.8 mg/dL (1.8-2.4)
[2021-02-07 11:33] LABS: CREATININE 1.1 mg/dL (0.55-1.3); PHOSPHOROUS 2.6 mg/dL (2.5-4.9)
[2021-02-07 11:34] LABS: BILIRUBIN,TOTAL 0.4 mg/dL (0.2-1); TOT PROT 6.6 g/dl (6.4-8.2)
[2021-02-07] MEDS: POLYETHYLENE GLYCOL (HEALTHYLAX) 3350 17 GM PACKET PO SCH (12:00)
[2021-02-07] MEDS ORDERED: INSULIN (LEVEMIR) 100 UNITS/ML UNITS SQ SCH (12:07)
[2021-02-07] MEDS ORDERED: MELATONIN 5 MG TABLETS PO PRN (18:55)
[2021-02-07] MEDS: ATORVASTATIN CA 80 MG TABLET (FP) PO SCH (22:31)
[2021-02-08] MEDS ORDERED: PIPERACILLIN/TAZOBACTAM 3.375 GM VIAL IVPB ONE ×2 (02:14→09:18)
[2021-02-08] MEDS ORDERED: DEXTROSE 5%-WATER - 50 ML IVPB ONE ×2 (02:14→09:18)
[2021-02-08] MEDS: PIPERACILLIN/TAZOB 3.375 GM 3.375 GM in DEXTROSE 5%-WATER - 50 ML IVPB SCH ×2 (03:25→09:22)
[2021-02-08] MEDS: INSULIN (LEVEMIR) 100 UNITS/ML UNITS SQ SCH ×2 (06:25→21:00)
[2021-02-08] MEDS: INSULIN SLIDING SCALE (NOVOLOG) 1 VIAL SQ SCH ×4 (06:25→21:00)
[2021-02-08] MEDS: ALLOPURINOL 300 MG TABLET (FP) PO SCH (09:23)
[2021-02-08] MEDS: METOPROLOL TARTRATE 25 MG TABLET (FP) PO SCH ×2 (09:23→20:59)
[2021-02-08] MEDS: GABAPENTIN 300 MG CAPSULE PO SCH ×2 (09:23→20:59)
[2021-02-08] MEDS: HYDROCHLOROTHIAZIDE 25 MG TABLET (FP) PO SCH ×2 (09:23→20:59)
[2021-02-08] MEDS: POLYETHYLENE GLYCOL (HEALTHYLAX) 3350 17 GM PACKET PO SCH (09:23)
[2021-02-08] MEDS: ASPIRIN COATED 81 MG TABLET.EC PO SCH (09:23)
[2021-02-08] MEDS: CLOPIDOGREL BISULFATE 75 MG TABLET (FP) PO SCH (09:24)
[2021-02-08] MEDS: MULTIVITAMINS (DAILY MVI) TABLET (FP) PO SCH (09:24)
[2021-02-08 11:44] LABS: CALCIUM 9.6 mg/dL (8.5-10.1)
[2021-02-08 11:45] LABS: ALBUMIN 2.5 g/dl (3.4-5.0)
[2021-02-08 11:48] LABS: CREATININE 1.2 mg/dL (0.55-1.3)
[2021-02-08 11:49] LABS: BILIRUBIN,TOTAL 0.9 mg/dL (0.2-1); EOS % 6.2 % (0-4.5); HEMATOCRIT 29.7 % (35.4-49); HEMOGLOBIN 9.9 GM/dL (11.7-16.9); LYMPH % 17.3 % (8-40); MCH 31.1 pg (25.7-33.7); MCHC 33.4 g/dl (32.0-35.9); MEAN CELL VOLUME 93.2 fl (80-96); MEAN PLT VOLUME 8.2 fl (7.5-11.1); MONO % 6.5 % (3.8-10.2); PLATELET COUNT 431 10^3/uL (134-434); RBC 3.19 M/mm3 (4.00-5.60); RDW 17.4 % (11.9-15.9); TOT PROT 7.2 g/dl (6.4-8.2); WHITE BLOOD COUNT 11.9 K/mm3 (4.0-10.0)
[2021-02-08] MEDS: COLLAGENASE CLOSTRIDIUM HIST. 30 GRAMS TUBE TP SCH (20:47)
[2021-02-08] MEDS: ATORVASTATIN CA 80 MG TABLET (FP) PO SCH (20:59)
[2021-02-09] MEDS: INSULIN (LEVEMIR) 100 UNITS/ML UNITS SQ SCH ×2 (06:00→21:23)
[2021-02-09] MEDS: INSULIN SLIDING SCALE (NOVOLOG) 1 VIAL SQ SCH ×4 (06:00→21:24)
[2021-02-09 08:38] LABS: BASO % 0.9 % (0-2.0); EOS % 7.4 % (0-4.5); HEMATOCRIT 29.2 % (35.4-49); HEMOGLOBIN 9.9 GM/dL (11.7-16.9); LYMPH % 22.3 % (8-40); MCH 31.1 pg (25.7-33.7); MEAN CELL VOLUME 91.3 fl (80-96); MEAN PLT VOLUME 7.9 fl (7.5-11.1); MONO % 7.1 % (3.8-10.2); NEUT % 62.3 % (42.8-82.8); PLATELET COUNT 449 10^3/uL (134-434); RDW 17.6 % (11.9-15.9); WHITE BLOOD COUNT 12.2 K/mm3 (4.0-10.0)
[2021-02-09 09:14] LABS: ALBUMIN 2.6 g/dl (3.4-5.0); CALCIUM 9.7 mg/dL (8.5-10.1)
[2021-02-09 09:17] LABS: CREATININE 1.2 mg/dL (0.55-1.3); PHOSPHOROUS 3.8 mg/dL (2.5-4.9)
[2021-02-09 09:19] LABS: BILIRUBIN,TOTAL 0.8 mg/dL (0.2-1); TOT PROT 7.4 g/dl (6.4-8.2)
[2021-02-09] MEDS: ASPIRIN COATED 81 MG TABLET.EC PO SCH (10:47)
[2021-02-09] MEDS: CLOPIDOGREL BISULFATE 75 MG TABLET (FP) PO SCH (10:47)
[2021-02-09] MEDS: GABAPENTIN 300 MG CAPSULE PO SCH ×2 (10:47→21:24)
[2021-02-09] MEDS: HYDROCHLOROTHIAZIDE 25 MG TABLET (FP) PO SCH ×2 (10:47→21:24)
[2021-02-09] MEDS: MULTIVITAMINS (DAILY MVI) TABLET (FP) PO SCH (10:47)
[2021-02-09] MEDS: METOPROLOL TARTRATE 25 MG TABLET (FP) PO SCH ×2 (10:47→21:24)
[2021-02-09] MEDS: POLYETHYLENE GLYCOL (HEALTHYLAX) 3350 17 GM PACKET PO SCH (10:47)
[2021-02-09] MEDS: ALLOPURINOL 300 MG TABLET (FP) PO SCH (10:47)
[2021-02-09 16:11] LABS: PH,URINE 6.5 (5.0-8.0); URINE APPEARANCE CLEAR; URINE BILIRUBIN NEGATIVE (NEGATIVE); URINE COLOR YELLOW; URINE GLUCOSE (UA) 1+ (NEGATIVE); URINE KETONE NEGATIVE (NEGATIVE); URINE LEUK ESTERASE NEGATIVE (NEGATIVE); URINE NITRITE NEGATIVE (NEGATIVE); URINE PROTEIN NEGATIVE (NEGATIVE)
[2021-02-09] MEDS: AMOX TR/POT CLAV 875MG/125MG TABLETS (FP) PO SCH (17:56)
[2021-02-09] MEDS: COLLAGENASE CLOSTRIDIUM HIST. 30 GRAMS TUBE TP SCH (18:52)
[2021-02-09] MEDS: ATORVASTATIN CA 80 MG TABLET (FP) PO SCH (21:24)
[2021-02-10] MEDS: INSULIN SLIDING SCALE (NOVOLOG) 1 VIAL SQ SCH ×4 (06:18→21:37)
[2021-02-10 08:45] LABS: EOS % 4.8 % (0-4.5); HEMATOCRIT 31.8 % (35.4-49); HEMOGLOBIN 10.6 GM/dL (11.7-16.9); LYMPH % 24.9 % (8-40); MCH 30.9 pg (25.7-33.7); MCHC 33.4 g/dl (32.0-35.9); MEAN CELL VOLUME 92.6 fl (80-96); MEAN PLT VOLUME 8.1 fl (7.5-11.1); MONO % 6.3 % (3.8-10.2); PLATELET COUNT 485 10^3/uL (134-434); RBC 3.43 M/mm3 (4.00-5.60); WHITE BLOOD COUNT 14.6 K/mm3 (4.0-10.0)
[2021-02-10 09:14] LABS: ALBUMIN 2.9 g/dl (3.4-5.0); CALCIUM 10.4 mg/dL (8.5-10.1)
[2021-02-10 09:15] LABS: MAGNESIUM 2.2 mg/dL (1.8-2.4)
[2021-02-10 09:17] LABS: CREATININE 1.2 mg/dL (0.55-1.3); PHOSPHOROUS 4.7 mg/dL (2.5-4.9)
[2021-02-10 09:18] LABS: BILIRUBIN,TOTAL 0.8 mg/dL (0.2-1); TOT PROT 8.1 g/dl (6.4-8.2)
[2021-02-10] MEDS ORDERED: INSULIN (LEVEMIR) 100 UNITS/ML UNITS SQ ONE (10:15)
[2021-02-10] MEDS: INSULIN (LEVEMIR) 100 UNITS/ML UNITS SQ SCH ×2 (10:16→21:36)
[2021-02-10] MEDS: COLLAGENASE CLOSTRIDIUM HIST. 30 GRAMS TUBE TP SCH (10:17)
[2021-02-10] MEDS: GABAPENTIN 300 MG CAPSULE PO SCH ×2 (10:17→21:37)
[2021-02-10] MEDS: HYDROCHLOROTHIAZIDE 25 MG TABLET (FP) PO SCH ×2 (10:17→21:37)
[2021-02-10] MEDS: CLOPIDOGREL BISULFATE 75 MG TABLET (FP) PO SCH (10:17)
[2021-02-10] MEDS: ASPIRIN COATED 81 MG TABLET.EC PO SCH (10:17)
[2021-02-10] MEDS: MULTIVITAMINS (DAILY MVI) TABLET (FP) PO SCH (10:17)
[2021-02-10] MEDS: METOPROLOL TARTRATE 25 MG TABLET (FP) PO SCH ×2 (10:17→21:37)
[2021-02-10] MEDS: ALLOPURINOL 300 MG TABLET (FP) PO SCH (10:17)
[2021-02-10] MEDS: AMOX TR/POT CLAV 875MG/125MG TABLETS (FP) PO SCH (10:17)
[2021-02-10] MEDS: POLYETHYLENE GLYCOL (HEALTHYLAX) 3350 17 GM PACKET PO SCH (10:18)
[2021-02-10] MEDS ORDERED: PIPERACILLIN/TAZOBACTAM 3.375 GM VIAL IVPB ONE ×2 (12:48→17:29)
[2021-02-10] MEDS ORDERED: DEXTROSE 5%-WATER - 50 ML IVPB ONE ×2 (12:49→17:29)
[2021-02-10] MEDS: PIPERACILLIN/TAZOB 3.375 GM 3.375 GM in DEXTROSE 5%-WATER - 50 ML IVPB SCH ×2 (13:37→17:37)
[2021-02-10] MEDS: ATORVASTATIN CA 80 MG TABLET (FP) PO SCH (21:37)
[2021-02-11] MEDS ORDERED: PIPERACILLIN/TAZOBACTAM 3.375 GM VIAL IVPB ONE ×3 (02:00→16:14)
[2021-02-11] MEDS ORDERED: DEXTROSE 5%-WATER - 50 ML IVPB ONE ×3 (02:00→16:14)
[2021-02-11] MEDS: PIPERACILLIN/TAZOB 3.375 GM 3.375 GM in DEXTROSE 5%-WATER - 50 ML IVPB SCH ×3 (02:12→17:40)
[2021-02-11] MEDS: INSULIN SLIDING SCALE (NOVOLOG) 1 VIAL SQ SCH ×4 (06:12→21:19)
[2021-02-11] MEDS ORDERED: HYDROCHLOROTHIAZIDE 12.5 MG CAPSULE (FP) PO SCH (08:00)
[2021-02-11] MEDS: INSULIN (LEVEMIR) 100 UNITS/ML UNITS SQ SCH ×2 (08:09→21:21)
[2021-02-11] MEDS: ALLOPURINOL 300 MG TABLET (FP) PO SCH (09:45)
[2021-02-11] MEDS: ASPIRIN COATED 81 MG TABLET.EC PO SCH (09:45)
[2021-02-11] MEDS: GABAPENTIN 300 MG CAPSULE PO SCH ×2 (09:45→21:18)
[2021-02-11] MEDS: POLYETHYLENE GLYCOL (HEALTHYLAX) 3350 17 GM PACKET PO SCH (09:45)
[2021-02-11] MEDS: MULTIVITAMINS (DAILY MVI) TABLET (FP) PO SCH (09:45)
[2021-02-11] MEDS: CLOPIDOGREL BISULFATE 75 MG TABLET (FP) PO SCH (09:45)
[2021-02-11 09:54] LABS: HEMATOCRIT 29.2 % (35.4-49); HEMOGLOBIN 9.9 GM/dL (11.7-16.9); MCH 31.6 pg (25.7-33.7); MEAN PLT VOLUME 8.7 fl (7.5-11.1); PLATELET COUNT 411 10^3/uL (134-434); RBC 3.14 M/mm3 (4.00-5.60); RDW 17.5 % (11.9-15.9); WHITE BLOOD COUNT 12.3 K/mm3 (4.0-10.0)
[2021-02-11] MEDS: COLLAGENASE CLOSTRIDIUM HIST. 30 GRAMS TUBE TP SCH (09:56)
[2021-02-11] MEDS: METOPROLOL TARTRATE 25 MG TABLET (FP) PO SCH ×2 (09:56→21:21)
[2021-02-11 10:18] LABS: ALBUMIN 2.7 g/dl (3.4-5.0); BLOOD UREA NITROGEN 38.4 mg/dL (7-18); MAGNESIUM 2.2 mg/dL (1.8-2.4)
[2021-02-11 10:20] LABS: CREATININE 1.5 mg/dL (0.55-1.3); PHOSPHOROUS 4.4 mg/dL (2.5-4.9)
[2021-02-11 10:22] LABS: BILIRUBIN,TOTAL 0.7 mg/dL (0.2-1); TOT PROT 7.8 g/dl (6.4-8.2)
[2021-02-11] MEDS ORDERED: INSULIN SLIDING SCALE (NOVOLOG) 1 VIAL SQ ONE (12:08)
[2021-02-11 14:19] VITALS: BMI 38.5
[2021-02-11] MEDS ORDERED: SODIUM CHLORIDE 1,000 ML IV SCH (14:45)
[2021-02-11] MEDS: LOSARTAN POTASSIUM 50 MG TABLET PO SCH (21:17)
[2021-02-11] MEDS: ATORVASTATIN CA 80 MG TABLET (FP) PO SCH (21:19)
[2021-02-12] MEDS ORDERED: PIPERACILLIN/TAZOBACTAM 3.375 GM VIAL IVPB ONE ×3 (01:20→17:00)
[2021-02-12] MEDS ORDERED: DEXTROSE 5%-WATER - 50 ML IVPB ONE ×3 (01:21→17:00)
[2021-02-12] MEDS: PIPERACILLIN/TAZOB 3.375 GM 3.375 GM in DEXTROSE 5%-WATER - 50 ML IVPB SCH ×3 (01:22→17:27)
[2021-02-12] MEDS: INSULIN SLIDING SCALE (NOVOLOG) 1 VIAL SQ SCH ×4 (06:31→21:31)
[2021-02-12] MEDS: INSULIN (LEVEMIR) 100 UNITS/ML UNITS SQ SCH ×2 (07:47→22:19)
[2021-02-12] MEDS: MULTIVITAMINS (DAILY MVI) TABLET (FP) PO SCH (09:15)
[2021-02-12] MEDS: ASPIRIN COATED 81 MG TABLET.EC PO SCH (09:15)
[2021-02-12] MEDS: ALLOPURINOL 300 MG TABLET (FP) PO SCH (09:15)
[2021-02-12] MEDS: METOPROLOL TARTRATE 25 MG TABLET (FP) PO SCH ×2 (09:15→21:30)
[2021-02-12] MEDS: GABAPENTIN 300 MG CAPSULE PO SCH ×2 (09:15→21:29)
[2021-02-12] MEDS: CLOPIDOGREL BISULFATE 75 MG TABLET (FP) PO SCH (09:15)
[2021-02-12] MEDS: POLYETHYLENE GLYCOL (HEALTHYLAX) 3350 17 GM PACKET PO SCH (09:16)
[2021-02-12] MEDS: COLLAGENASE CLOSTRIDIUM HIST. 30 GRAMS TUBE TP SCH (09:16)
[2021-02-12 10:53] LABS: BASO % 1.1 % (0-2.0); EOS % 8.1 % (0-4.5); HEMATOCRIT 28.4 % (35.4-49); HEMOGLOBIN 9.4 GM/dL (11.7-16.9); LYMPH % 17.6 % (8-40); MCH 30.9 pg (25.7-33.7); MCHC 33.2 g/dl (32.0-35.9); MEAN CELL VOLUME 93.2 fl (80-96); MEAN PLT VOLUME 8.5 fl (7.5-11.1); MONO % 8.3 % (3.8-10.2); NEUT % 64.9 % (42.8-82.8); PLATELET COUNT 463 10^3/uL (134-434); RBC 3.05 M/mm3 (4.00-5.60); RDW 17.6 % (11.9-15.9); WHITE BLOOD COUNT 13.1 K/mm3 (4.0-10.0)
[2021-02-12 11:14] LABS: CALCIUM 9.5 mg/dL (8.5-10.1)
[2021-02-12 11:15] LABS: BLOOD UREA NITROGEN 35.8 mg/dL (7-18)
[2021-02-12 11:18] LABS: CREATININE 1.5 mg/dL (0.55-1.3)
[2021-02-12] MEDS: ATORVASTATIN CA 80 MG TABLET (FP) PO SCH (21:28)
[2021-02-12] MEDS: LOSARTAN POTASSIUM 50 MG TABLET PO SCH (21:28)
[2021-02-13] MEDS ORDERED: DEXTROSE 5%-WATER - 50 ML IVPB ONE ×3 (02:19→16:32)
[2021-02-13] MEDS ORDERED: PIPERACILLIN/TAZOBACTAM 3.375 GM VIAL IVPB ONE ×3 (02:19→16:31)
[2021-02-13] MEDS: PIPERACILLIN/TAZOB 3.375 GM 3.375 GM in DEXTROSE 5%-WATER - 50 ML IVPB SCH ×3 (02:20→17:05)
[2021-02-13] MEDS: INSULIN SLIDING SCALE (NOVOLOG) 1 VIAL SQ SCH ×4 (06:26→21:54)
[2021-02-13] MEDS: INSULIN (LEVEMIR) 100 UNITS/ML UNITS SQ SCH ×2 (09:03→21:52)
[2021-02-13] MEDS: CLOPIDOGREL BISULFATE 75 MG TABLET (FP) PO SCH (09:04)
[2021-02-13] MEDS: METOPROLOL TARTRATE 25 MG TABLET (FP) PO SCH ×2 (09:04→21:50)
[2021-02-13] MEDS: POLYETHYLENE GLYCOL (HEALTHYLAX) 3350 17 GM PACKET PO SCH (09:04)
[2021-02-13] MEDS: ASPIRIN COATED 81 MG TABLET.EC PO SCH (09:04)
[2021-02-13] MEDS: MULTIVITAMINS (DAILY MVI) TABLET (FP) PO SCH (09:04)
[2021-02-13] MEDS: GABAPENTIN 300 MG CAPSULE PO SCH ×2 (09:04→21:51)
[2021-02-13] MEDS: ALLOPURINOL 300 MG TABLET (FP) PO SCH (09:04)
[2021-02-13 09:42] LABS: BASO % 1.2 % (0-2.0); EOS % 7.1 % (0-4.5); HEMOGLOBIN 10.2 GM/dL (11.7-16.9); LYMPH % 22.8 % (8-40); MCH 30.3 pg (25.7-33.7); MCHC 32.8 g/dl (32.0-35.9); MEAN CELL VOLUME 92.5 fl (80-96); MEAN PLT VOLUME 8.6 fl (7.5-11.1); MONO % 6.4 % (3.8-10.2); NEUT % 62.5 % (42.8-82.8); PLATELET COUNT 501 10^3/uL (134-434); RBC 3.35 M/mm3 (4.00-5.60); RDW 17.3 % (11.9-15.9)
[2021-02-13 10:20] LABS: ALBUMIN 2.7 g/dl (3.4-5.0); BLOOD UREA NITROGEN 31.3 mg/dL (7-18); MAGNESIUM 2.3 mg/dL (1.8-2.4)
[2021-02-13 10:23] LABS: CREATININE 1.4 mg/dL (0.55-1.3)
[2021-02-13] MEDS: ATORVASTATIN CA 80 MG TABLET (FP) PO SCH (21:51)
[2021-02-13] MEDS: LOSARTAN POTASSIUM 50 MG TABLET PO SCH (21:51)
[2021-02-14] MEDS ORDERED: DEXTROSE 5%-WATER - 50 ML IVPB ONE ×2 (02:20→11:11)
[2021-02-14] MEDS ORDERED: PIPERACILLIN/TAZOBACTAM 3.375 GM VIAL IVPB ONE ×2 (02:20→11:11)
[2021-02-14] MEDS: PIPERACILLIN/TAZOB 3.375 GM 3.375 GM in DEXTROSE 5%-WATER - 50 ML IVPB SCH ×2 (02:22→11:18)
[2021-02-14] MEDS: INSULIN SLIDING SCALE (NOVOLOG) 1 VIAL SQ SCH ×3 (06:15→16:15)
[2021-02-14] MEDS: INSULIN (LEVEMIR) 100 UNITS/ML UNITS SQ SCH (07:54)
[2021-02-14 09:03] LABS: BASO % 1.2 % (0-2.0); EOS % 6.4 % (0-4.5); HEMATOCRIT 29.8 % (35.4-49); HEMOGLOBIN 10.1 GM/dL (11.7-16.9); LYMPH % 25.9 % (8-40); MCH 31.2 pg (25.7-33.7); MCHC 33.8 g/dl (32.0-35.9); MEAN CELL VOLUME 92.4 fl (80-96); MEAN PLT VOLUME 8.5 fl (7.5-11.1); MONO % 6.7 % (3.8-10.2); NEUT % 59.8 % (42.8-82.8); PLATELET COUNT 522 10^3/uL (134-434); RBC 3.22 M/mm3 (4.00-5.60); RDW 17.5 % (11.9-15.9); WHITE BLOOD COUNT 11.9 K/mm3 (4.0-10.0)
[2021-02-14 09:11] LABS: ALBUMIN 2.8 g/dl (3.4-5.0); CALCIUM 9.9 mg/dL (8.5-10.1)
[2021-02-14 09:12] LABS: BLOOD UREA NITROGEN 30.2 mg/dL (7-18); MAGNESIUM 2.3 mg/dL (1.8-2.4)
[2021-02-14 09:15] LABS: CREATININE 1.3 mg/dL (0.55-1.3); PHOSPHOROUS 2.9 mg/dL (2.5-4.9)
[2021-02-14 09:17] LABS: BILIRUBIN,TOTAL 0.8 mg/dL (0.2-1); TOT PROT 7.9 g/dl (6.4-8.2)
[2021-02-14] MEDS ORDERED: SODIUM CHLORIDE 1,000 ML IV SCH (09:30)
[2021-02-14] MEDS: METOPROLOL TARTRATE 25 MG TABLET (FP) PO SCH (10:51)
[2021-02-14] MEDS: GABAPENTIN 300 MG CAPSULE PO SCH (11:16)
[2021-02-14] MEDS: MULTIVITAMINS (DAILY MVI) TABLET (FP) PO SCH (11:16)
[2021-02-14] MEDS: ASPIRIN COATED 81 MG TABLET.EC PO SCH (11:16)
[2021-02-14] MEDS: POLYETHYLENE GLYCOL (HEALTHYLAX) 3350 17 GM PACKET PO SCH (11:17)
[2021-02-14] MEDS: ALLOPURINOL 300 MG TABLET (FP) PO SCH (11:17)
[2021-02-14] MEDS: CLOPIDOGREL BISULFATE 75 MG TABLET (FP) PO SCH (11:17)
[2021-02-14 16:07] VITALS: BP 155/51; PULSE 78; TEMP 98
== END 2021-02-14 16:55 | disposition home or self-care (01) | DRG 253 ==
LOC: JER 16:34 → JERBED 17:43 → J7W 23:40 → JICU 02-04 10:01 → J5S 02-07 18:36
PROVIDERS: ADMIT Internal Medicine; ATTEND Internal Medicine
PROC: 047K3DZ Dilation of Right Femoral Artery with Intraluminal Device, Percutaneous Approach (ICD-10-PCS; principal; 2021-02-03 18:00)
PROC: 05HM33Z Insertion of Infusion Device into Right Internal Jugular Vein, Percutaneous Approach (ICD-10-PCS; 2021-02-04)
PROC: B543ZZA Ultrasonography of Right Jugular Veins, Guidance (ICD-10-PCS; 2021-02-04)
PROC: 30233N1 Transfusion of Nonautologous Red Blood Cells into Peripheral Vein, Percutaneous Approach (ICD-10-PCS; 2021-02-04)
PROC: 0JBQ0ZZ Excision of Right Foot Subcutaneous Tissue and Fascia, Open Approach (ICD-10-PCS; 2021-02-07)
DX: E11.52 Type 2 diabetes mellitus with diabetic peripheral angiopathy with gangrene (principal); L03.115 Cellulitis of right lower limb; N17.9 Acute kidney failure, unspecified; K91.841 Postprocedural hemorrhage of a digestive system organ or structure following other procedure; E87.1 Hypo-osmolality and hyponatremia; D62 Acute posthemorrhagic anemia; I13.0 Hypertensive heart and chronic kidney disease with heart failure and stage 1 through stage 4 chronic kidney disease, or unspecified chronic kidney disease; Y83.9 Surgical procedure, unspecified as the cause of abnormal reaction of the patient, or of later complication, without mention of misadventure at the time of the procedure; E11.621 Type 2 diabetes mellitus with foot ulcer; L97.519 Non-pressure chronic ulcer of other part of right foot with unspecified severity; E11.40 Type 2 diabetes mellitus with diabetic neuropathy, unspecified; K21.9 Gastro-esophageal reflux disease without esophagitis; M10.9 Gout, unspecified; I25.10 Atherosclerotic heart disease of native coronary artery without angina pectoris; E78.5 Hyperlipidemia, unspecified; N18.30 Chronic kidney disease, stage 3 unspecified; D72.829 Elevated white blood cell count, unspecified; Z68.38 Body mass index [BMI] 38.0-38.9, adult; E66.01 Morbid (severe) obesity due to excess calories; G47.33 Obstructive sleep apnea (adult) (pediatric); I50.9 Heart failure, unspecified
CPT/HCPCS: 36415; 36430; 36511; 71045-TC-FY; 73610-TC-RT-FY; 73630-TC-RT-FY; 73718-TC-RT; 74174-TC; 74176-TC; 74177-TC; 75635-TC; 80048; 80053; 80061; 81003; 82570; 82962; 83036; 83540; 83550; 83735; 84100; 84156; 84550; 85025; 85027; 85610; 85651; 85730; 86140; 86850; 86900; 86901; 86922; 87040; 87070; 87186; 87205; 88304-TC; 93005; 93010; 94010; 94760; 97116-GP; 97161-GP; 99285-25; C9803; J0131; J1644; P9038; P9058; Q9967; U0003; U0005

== ENCOUNTER 2021-03-16 12:01 | Inpatient (IN) | payer OTHER ==
[2021-03-16] MEDS ORDERED: PIPERACILLIN/TAZOB 4.5 GM 4.5 GM in DEXTROSE 5%-WATER 100 ML IVPB ONE (14:18)
[2021-03-16] MEDS ORDERED: PIPERACILLIN/TAZOB 4.5 GM 4.5 GM/100 ML BAG IVPB ONE (14:54)
[2021-03-16 17:17] LABS: EOS % 4.9 % (0-4.5); HEMATOCRIT 31.9 % (35.4-49); HEMOGLOBIN 10.6 GM/dL (11.7-16.9); LYMPH % 28.3 % (8-40); MCH 30.9 pg (25.7-33.7); MCHC 33.3 g/dl (32.0-35.9); MEAN CELL VOLUME 92.8 fl (80-96); MEAN PLT VOLUME 8.3 fl (7.5-11.1); MONO % 7.7 % (3.8-10.2); NEUT % 58.1 % (42.8-82.8); PLATELET COUNT 337 10^3/uL (134-434); RBC 3.44 M/mm3 (4.00-5.60); RDW 17.2 % (11.9-15.9); WHITE BLOOD COUNT 9.4 K/mm3 (4.0-10.0)
[2021-03-16 17:26] LABS: CALCIUM 9.4 mg/dL (8.5-10.1)
[2021-03-16 17:27] LABS: ALBUMIN 2.9 g/dl (3.4-5.0); BLOOD UREA NITROGEN 20.1 mg/dL (7-18)
[2021-03-16 17:31] LABS: BILIRUBIN,TOTAL 0.3 mg/dL (0.2-1); TOT PROT 7.9 g/dl (6.4-8.2)
[2021-03-16] MEDS ORDERED: PIPERACILLIN/TAZOB 3.375 GM 3.375 GM/50 ML BAG IVPB ONE (19:34)
[2021-03-16] MEDS ORDERED: GABAPENTIN 100 MG CAPSULE ONE (19:34)
[2021-03-16] MEDS: GABAPENTIN 300 MG CAPSULE PO SCH ×2 (19:37→21:35)
[2021-03-16] MEDS: PIPERACILLIN/TAZOB 3.375 GM 3.375 GM in DEXTROSE 5%-WATER - 50 ML IVPB SCH (19:48)
[2021-03-16] MEDS ORDERED: ACETAMINOPHEN 325 MG TABLET (FP) ONE (20:47)
[2021-03-16] MEDS: LOSARTAN POTASSIUM 50 MG TABLET PO SCH (21:35)
[2021-03-16] MEDS: HEPARIN NA (PORCINE) 5,000 UNITS/ML 1ML VIAL SQ SCH (21:35)
[2021-03-16] MEDS: METOPROLOL TARTRATE 25 MG TABLET (FP) PO SCH (21:35)
[2021-03-16] MEDS: ATORVASTATIN CA 80 MG TABLET (FP) PO SCH (21:35)
[2021-03-16] MEDS: INSULIN (NOVOLOG) ASPART 100 UNITS/ML 10ML VIAL SQ SCH ×2 (21:36)
[2021-03-16 23:01] VITALS: BMI 39.2
[2021-03-17] MEDS ORDERED: PIPERACILLIN/TAZOBACTAM 3.375 GM VIAL IVPB ONE ×2 (01:05→09:14)
[2021-03-17] MEDS ORDERED: DEXTROSE 5%-WATER - 50 ML IVPB ONE ×2 (01:05→09:14)
[2021-03-17] MEDS: PIPERACILLIN/TAZOB 3.375 GM 3.375 GM in DEXTROSE 5%-WATER - 50 ML IVPB SCH ×2 (01:24→09:20)
[2021-03-17] MEDS: HEPARIN NA (PORCINE) 5,000 UNITS/ML 1ML VIAL SQ SCH ×3 (01:25→17:46)
[2021-03-17] MEDS: GABAPENTIN 300 MG CAPSULE PO SCH ×3 (05:28→21:25)
[2021-03-17] MEDS: INSULIN (NOVOLOG) ASPART 100 UNITS/ML 10ML VIAL SQ SCH ×5 (06:07→21:26)
[2021-03-17 08:58] LABS: EOS % 5.8 % (0-4.5); HEMATOCRIT 28.5 % (35.4-49); HEMOGLOBIN 9.5 GM/dL (11.7-16.9); LYMPH % 28.8 % (8-40); MCH 30.7 pg (25.7-33.7); MCHC 33.3 g/dl (32.0-35.9); MEAN CELL VOLUME 92.2 fl (80-96); MONO % 8.2 % (3.8-10.2); NEUT % 56.2 % (42.8-82.8); PLATELET COUNT 309 10^3/uL (134-434); RBC 3.09 M/mm3 (4.00-5.60); WHITE BLOOD COUNT 7.8 K/mm3 (4.0-10.0)
[2021-03-17] MEDS ORDERED: PT OWN MED DRAWER 7, Y5N ONE ×2 (09:14→10:47)
[2021-03-17 09:19] LABS: ALBUMIN 2.4 g/dl (3.4-5.0); BLOOD UREA NITROGEN 17.7 mg/dL (7-18); CALCIUM 9.1 mg/dL (8.5-10.1); MAGNESIUM 1.5 mg/dL (1.8-2.4)
[2021-03-17] MEDS: PANTOPRAZOLE 40 MG TABLET PO SCH (09:20)
[2021-03-17 09:22] LABS: PHOSPHOROUS 3.2 mg/dL (2.5-4.9)
[2021-03-17 09:23] LABS: BILIRUBIN,TOTAL 0.4 mg/dL (0.2-1); TOT PROT 6.7 g/dl (6.4-8.2)
[2021-03-17] MEDS: METOPROLOL TARTRATE 25 MG TABLET (FP) PO SCH ×2 (10:01→21:26)
[2021-03-17] MEDS: ALLOPURINOL 300 MG TABLET (FP) PO SCH (11:26)
[2021-03-17] MEDS ORDERED: MEROPENEM 1 GM VIAL (RESTRICTED TO ID) IVPB ONE (17:00)
[2021-03-17] MEDS ORDERED: DEXTROSE 5%-WATER 100 ML IVPB ONE (17:00)
[2021-03-17] MEDS: MEROPENEM 1 GM in DEXTROSE 5%-WATER 100 ML IVPB SCH (17:06)
[2021-03-17] MEDS: ATORVASTATIN CA 80 MG TABLET (FP) PO SCH (21:26)
[2021-03-17] MEDS: LOSARTAN POTASSIUM 50 MG TABLET PO SCH (21:26)
[2021-03-18] MEDS ORDERED: MEROPENEM 1 GM VIAL (RESTRICTED TO ID) IVPB ONE ×3 (01:39→16:55)
[2021-03-18] MEDS ORDERED: DEXTROSE 5%-WATER 100 ML IVPB ONE ×3 (01:39→16:56)
[2021-03-18] MEDS: MEROPENEM 1 GM in DEXTROSE 5%-WATER 100 ML IVPB SCH ×3 (01:52→17:08)
[2021-03-18] MEDS: HEPARIN NA (PORCINE) 5,000 UNITS/ML 1ML VIAL SQ SCH ×3 (01:52→17:08)
[2021-03-18] MEDS: GABAPENTIN 300 MG CAPSULE PO SCH ×3 (06:23→21:17)
[2021-03-18] MEDS: INSULIN (NOVOLOG) ASPART 100 UNITS/ML 10ML VIAL SQ SCH ×4 (06:23→21:18)
[2021-03-18] MEDS: PANTOPRAZOLE 40 MG TABLET PO SCH (09:50)
[2021-03-18] MEDS: METOPROLOL TARTRATE 25 MG TABLET (FP) PO SCH ×2 (09:50→21:17)
[2021-03-18] MEDS: ALLOPURINOL 300 MG TABLET (FP) PO SCH (09:51)
[2021-03-18] MEDS: ATORVASTATIN CA 80 MG TABLET (FP) PO SCH (21:17)
[2021-03-18] MEDS: LOSARTAN POTASSIUM 50 MG TABLET PO SCH (21:17)
[2021-03-19] MEDS ORDERED: MEROPENEM 1 GM VIAL (RESTRICTED TO ID) IVPB ONE ×3 (00:12→17:45)
[2021-03-19] MEDS ORDERED: DEXTROSE 5%-WATER 100 ML IVPB ONE ×3 (00:12→17:45)
[2021-03-19] MEDS: MEROPENEM 1 GM in DEXTROSE 5%-WATER 100 ML IVPB SCH ×3 (01:10→18:06)
[2021-03-19] MEDS: HEPARIN NA (PORCINE) 5,000 UNITS/ML 1ML VIAL SQ SCH ×3 (01:11→21:39)
[2021-03-19] MEDS: INSULIN (NOVOLOG) ASPART 100 UNITS/ML 10ML VIAL SQ SCH ×4 (06:16→21:48)
[2021-03-19] MEDS: GABAPENTIN 300 MG CAPSULE PO SCH ×3 (06:16→21:39)
[2021-03-19] MEDS ORDERED: PT OWN MED DRAWER 7, Y5N ONE (09:23)
[2021-03-19] MEDS: METOPROLOL TARTRATE 25 MG TABLET (FP) PO SCH ×2 (09:29→21:39)
[2021-03-19] MEDS: ALLOPURINOL 300 MG TABLET (FP) PO SCH (09:29)
[2021-03-19] MEDS: PANTOPRAZOLE 40 MG TABLET PO SCH (09:29)
[2021-03-19] MEDS ORDERED: SENNOSIDES 8.6MG TABLET (FP) PO PRN (12:38)
[2021-03-19 12:53] LABS: BASO % 1.3 % (0-2.0); EOS % 7.5 % (0-4.5); HEMATOCRIT 33.6 % (35.4-49); HEMOGLOBIN 11.1 GM/dL (11.7-16.9); MCH 30.8 pg (25.7-33.7); MEAN CELL VOLUME 93.2 fl (80-96); MEAN PLT VOLUME 7.9 fl (7.5-11.1); MONO % 6.1 % (3.8-10.2); NEUT % 54.1 % (42.8-82.8); PLATELET COUNT 396 10^3/uL (134-434); RBC 3.61 M/mm3 (4.00-5.60); RDW 17.1 % (11.9-15.9); WHITE BLOOD COUNT 6.9 K/mm3 (4.0-10.0)
[2021-03-19 13:14] LABS: ALBUMIN 2.7 g/dl (3.4-5.0); BLOOD UREA NITROGEN 14.8 mg/dL (7-18); CALCIUM 9.3 mg/dL (8.5-10.1); MAGNESIUM 1.7 mg/dL (1.8-2.4)
[2021-03-19 13:17] LABS: CREATININE 0.9 mg/dL (0.55-1.3)
[2021-03-19 13:18] LABS: BILIRUBIN,TOTAL 0.3 mg/dL (0.2-1)
[2021-03-19 13:19] LABS: TOT PROT 7.7 g/dl (6.4-8.2)
[2021-03-19] MEDS: POLYETHYLENE GLYCOL (HEALTHYLAX) 3350 17 GM PACKET PO SCH (13:21)
[2021-03-19] MEDS: DOCUSATE SODIUM 100 MG CAPSULE (FP) PO SCH ×2 (13:21→21:39)
[2021-03-19] MEDS: ATORVASTATIN CA 80 MG TABLET (FP) PO SCH (21:39)
[2021-03-19] MEDS: LOSARTAN POTASSIUM 50 MG TABLET PO SCH (21:39)
[2021-03-20] MEDS ORDERED: MEROPENEM 1 GM VIAL (RESTRICTED TO ID) IVPB ONE ×3 (01:03→17:06)
[2021-03-20] MEDS ORDERED: DEXTROSE 5%-WATER 100 ML IVPB ONE ×3 (01:04→17:06)
[2021-03-20] MEDS: MEROPENEM 1 GM in DEXTROSE 5%-WATER 100 ML IVPB SCH ×3 (01:46→17:12)
[2021-03-20] MEDS: HEPARIN NA (PORCINE) 5,000 UNITS/ML 1ML VIAL SQ SCH ×3 (06:34→21:08)
[2021-03-20] MEDS: DOCUSATE SODIUM 100 MG CAPSULE (FP) PO SCH ×3 (06:35→21:09)
[2021-03-20] MEDS: GABAPENTIN 300 MG CAPSULE PO SCH ×3 (06:35→21:10)
[2021-03-20] MEDS: INSULIN (NOVOLOG) ASPART 100 UNITS/ML 10ML VIAL SQ SCH ×4 (06:35→21:30)
[2021-03-20] MEDS: PANTOPRAZOLE 40 MG TABLET PO SCH (10:49)
[2021-03-20] MEDS: METOPROLOL TARTRATE 25 MG TABLET (FP) PO SCH ×2 (10:49→21:09)
[2021-03-20] MEDS: ALLOPURINOL 300 MG TABLET (FP) PO SCH (10:50)
[2021-03-20] MEDS: POLYETHYLENE GLYCOL (HEALTHYLAX) 3350 17 GM PACKET PO SCH (10:50)
[2021-03-20 12:27] LABS: BASO % 1.9 % (0-2.0); EOS % 6.8 % (0-4.5); HEMATOCRIT 34.1 % (35.4-49); HEMOGLOBIN 11.2 GM/dL (11.7-16.9); LYMPH % 33.3 % (8-40); MCH 30.7 pg (25.7-33.7); MCHC 32.7 g/dl (32.0-35.9); MEAN CELL VOLUME 93.7 fl (80-96); MEAN PLT VOLUME 7.6 fl (7.5-11.1); MONO % 6.7 % (3.8-10.2); NEUT % 51.3 % (42.8-82.8); PLATELET COUNT 397 10^3/uL (134-434); RBC 3.64 M/mm3 (4.00-5.60); RDW 16.9 % (11.9-15.9); WHITE BLOOD COUNT 7.6 K/mm3 (4.0-10.0)
[2021-03-20 13:06] LABS: ALBUMIN 2.8 g/dl (3.4-5.0); CALCIUM 9.5 mg/dL (8.5-10.1)
[2021-03-20 13:07] LABS: MAGNESIUM 1.8 mg/dL (1.8-2.4)
[2021-03-20 13:08] LABS: CREATININE 0.9 mg/dL (0.55-1.3)
[2021-03-20 13:10] LABS: BILIRUBIN,TOTAL 0.3 mg/dL (0.2-1); TOT PROT 7.9 g/dl (6.4-8.2)
[2021-03-20] MEDS: LOSARTAN POTASSIUM 50 MG TABLET PO SCH (21:09)
[2021-03-20] MEDS: ATORVASTATIN CA 80 MG TABLET (FP) PO SCH (21:10)
[2021-03-21] MEDS ORDERED: MEROPENEM 1 GM VIAL (RESTRICTED TO ID) IVPB ONE ×4 (00:57→19:00)
[2021-03-21] MEDS ORDERED: DEXTROSE 5%-WATER 100 ML IVPB ONE ×2 (01:01→10:31)
[2021-03-21] MEDS: MEROPENEM 1 GM in DEXTROSE 5%-WATER 100 ML IVPB SCH ×3 (01:05→19:00)
[2021-03-21] MEDS: HEPARIN NA (PORCINE) 5,000 UNITS/ML 1ML VIAL SQ SCH ×2 (06:47→13:32)
[2021-03-21] MEDS: GABAPENTIN 300 MG CAPSULE PO SCH ×3 (06:47→22:10)
[2021-03-21] MEDS: DOCUSATE SODIUM 100 MG CAPSULE (FP) PO SCH ×3 (06:47→22:09)
[2021-03-21] MEDS: INSULIN (NOVOLOG) ASPART 100 UNITS/ML 10ML VIAL SQ SCH ×4 (06:48→22:10)
[2021-03-21] MEDS: PANTOPRAZOLE 40 MG TABLET PO SCH (10:39)
[2021-03-21] MEDS: METOPROLOL TARTRATE 25 MG TABLET (FP) PO SCH ×2 (10:39→22:10)
[2021-03-21] MEDS: POLYETHYLENE GLYCOL (HEALTHYLAX) 3350 17 GM PACKET PO SCH (10:40)
[2021-03-21] MEDS: ALLOPURINOL 300 MG TABLET (FP) PO SCH (10:41)
[2021-03-21 10:58] LABS: BASO % 1.2 % (0-2.0); EOS % 6.7 % (0-4.5); HEMATOCRIT 33.1 % (35.4-49); HEMOGLOBIN 11.1 GM/dL (11.7-16.9); LYMPH % 28.9 % (8-40); MCH 30.9 pg (25.7-33.7); MCHC 33.4 g/dl (32.0-35.9); MEAN CELL VOLUME 92.5 fl (80-96); MEAN PLT VOLUME 8.1 fl (7.5-11.1); NEUT % 57.2 % (42.8-82.8); PLATELET COUNT 412 10^3/uL (134-434); RBC 3.57 M/mm3 (4.00-5.60); WHITE BLOOD COUNT 8.4 K/mm3 (4.0-10.0)
[2021-03-21] MEDS ORDERED: HEPARIN NA (PORCINE) 5,000 UNITS/ML 1ML VIAL ONE ×3 (11:58→15:42)
[2021-03-21] MEDS ORDERED: LIDOCAINE HCL 1%, 10 MG/ML (20ML VIAL) ONE (11:59)
[2021-03-21] MEDS ORDERED: MIDAZOLAM HCL 2 MG/2 ML SINGLE DOSE VIAL ONE (14:02)
[2021-03-21] MEDS ORDERED: PROPOFOL 20 ML ONE (14:02)
[2021-03-21] MEDS ORDERED: LIDOCAINE HCL 1%, 10 MG/ML (20ML VIAL) NR ONE ×2 (14:11)
[2021-03-21] MEDS ORDERED: HEPARIN NA (PORCINE) 1,000 UNITS/ML 10ML M-D VIAL SQ ONE (14:40)
[2021-03-21] MEDS ORDERED: IOVERSOL 320 MG/ML ML IV ONE (14:40)
[2021-03-21] MEDS ORDERED: HEPARIN NA (PORCINE) 5,000 UNITS/ML 1ML VIAL IVPUSH PRN ×5 (15:37→17:11)
[2021-03-21] MEDS ORDERED: HEPARIN INFUSION - 25,000 UNITS/500 ML INFUS.BAG IVPB ONE (15:42)
[2021-03-21] MEDS ORDERED: HEPARIN SOD,PORK IN 0.45% NACL 25,000 UNITS/500 ML INFUS.BAG IVPB SCH (15:45)
[2021-03-21] MEDS ORDERED: PROMETHAZINE HCL 25 MG/1 ML VIAL IVPUSH PRN ×2 (15:55→17:11)
[2021-03-21] MEDS ORDERED: ONDANSETRON 4 MG/2 ML VIAL IVPUSH PRN ×2 (15:55→17:11)
[2021-03-21] MEDS ORDERED: LACTATED RINGERS SOLUTION 1,000 ML IV SCH ×2 (16:00→17:11)
[2021-03-21] MEDS: HEPARIN SOD,PORK IN 0.45% NACL 25,000 UNITS/500 ML INFUS.BAG IVPB SCH (16:30)
[2021-03-21] MEDS ORDERED: BACITRACIN 15 GM TUBE TOPICAL OINTMENT ONE (16:43)
[2021-03-21] MEDS ORDERED: SENNOSIDES 8.6MG TABLET (FP) PO PRN (17:11)
[2021-03-21 19:47] LABS: BLOOD UREA NITROGEN 17.8 mg/dL (7-18); CALCIUM 9.4 mg/dL (8.5-10.1)
[2021-03-21 19:48] LABS: ALBUMIN 2.7 g/dl (3.4-5.0); MAGNESIUM 1.9 mg/dL (1.8-2.4)
[2021-03-21 19:50] LABS: CREATININE 0.9 mg/dL (0.55-1.3)
[2021-03-21 19:52] LABS: BILIRUBIN,TOTAL 0.2 mg/dL (0.2-1); TOT PROT 7.5 g/dl (6.4-8.2)
[2021-03-21] MEDS: LOSARTAN POTASSIUM 50 MG TABLET PO SCH (22:09)
[2021-03-21] MEDS: ATORVASTATIN CA 80 MG TABLET (FP) PO SCH (22:10)
[2021-03-22] MEDS ORDERED: MEROPENEM 1 GM VIAL (RESTRICTED TO ID) IVPB ONE ×3 (00:48→16:59)
[2021-03-22] MEDS ORDERED: DEXTROSE 5%-WATER 100 ML IVPB ONE ×3 (00:49→16:59)
[2021-03-22] MEDS: MEROPENEM 1 GM in DEXTROSE 5%-WATER 100 ML IVPB SCH ×3 (01:30→17:26)
[2021-03-22] MEDS: GABAPENTIN 300 MG CAPSULE PO SCH ×3 (06:26→21:55)
[2021-03-22] MEDS: DOCUSATE SODIUM 100 MG CAPSULE (FP) PO SCH ×3 (06:27→21:55)
[2021-03-22] MEDS: INSULIN (NOVOLOG) ASPART 100 UNITS/ML 10ML VIAL SQ SCH ×4 (06:36→21:53)
[2021-03-22] MEDS: PANTOPRAZOLE 40 MG TABLET PO SCH (09:00)
[2021-03-22] MEDS: ALLOPURINOL 300 MG TABLET (FP) PO SCH (09:00)
[2021-03-22] MEDS: POLYETHYLENE GLYCOL (HEALTHYLAX) 3350 17 GM PACKET PO SCH (09:00)
[2021-03-22] MEDS: METOPROLOL TARTRATE 25 MG TABLET (FP) PO SCH ×2 (09:00→21:55)
[2021-03-22 09:50] LABS: EOS % 6.2 % (0-4.5); HEMATOCRIT 31.3 % (35.4-49); HEMOGLOBIN 10.4 GM/dL (11.7-16.9); LYMPH % 26.4 % (8-40); MCH 30.7 pg (25.7-33.7); MCHC 33.1 g/dl (32.0-35.9); MEAN CELL VOLUME 92.6 fl (80-96); MEAN PLT VOLUME 8.4 fl (7.5-11.1); MONO % 7.6 % (3.8-10.2); NEUT % 58.8 % (42.8-82.8); PLATELET COUNT 317 10^3/uL (134-434); RBC 3.39 M/mm3 (4.00-5.60); RDW 17.5 % (11.9-15.9); WHITE BLOOD COUNT 7.8 K/mm3 (4.0-10.0)
[2021-03-22 10:05] LABS: ALBUMIN 2.4 g/dl (3.4-5.0); BLOOD UREA NITROGEN 16.8 mg/dL (7-18); CREATININE 0.8 mg/dL (0.55-1.3); MAGNESIUM 1.9 mg/dL (1.8-2.4)
[2021-03-22 10:07] LABS: BILIRUBIN,TOTAL 0.3 mg/dL (0.2-1); TOT PROT 6.7 g/dl (6.4-8.2)
[2021-03-22] MEDS: HEPARIN SOD,PORK IN 0.45% NACL 25,000 UNITS/500 ML INFUS.BAG IVPB SCH (17:33)
[2021-03-22] MEDS ORDERED: PT OWN MED DRAWER 7, Y5N ONE (17:33)
[2021-03-22] MEDS: LOSARTAN POTASSIUM 50 MG TABLET PO SCH (21:55)
[2021-03-22] MEDS: ATORVASTATIN CA 80 MG TABLET (FP) PO SCH (21:55)
[2021-03-23] MEDS ORDERED: MEROPENEM 1 GM VIAL (RESTRICTED TO ID) IVPB ONE ×3 (00:41→16:56)
[2021-03-23] MEDS ORDERED: DEXTROSE 5%-WATER 100 ML IVPB ONE ×3 (00:41→16:57)
[2021-03-23] MEDS: MEROPENEM 1 GM in DEXTROSE 5%-WATER 100 ML IVPB SCH ×3 (01:17→17:08)
[2021-03-23] MEDS: DOCUSATE SODIUM 100 MG CAPSULE (FP) PO SCH ×3 (06:08→21:21)
[2021-03-23] MEDS: GABAPENTIN 300 MG CAPSULE PO SCH ×3 (06:08→21:21)
[2021-03-23] MEDS: INSULIN (NOVOLOG) ASPART 100 UNITS/ML 10ML VIAL SQ SCH ×4 (06:09→21:25)
[2021-03-23 08:22] LABS: HEMATOCRIT 31.6 % (35.4-49); HEMOGLOBIN 10.6 GM/dL (11.7-16.9); MCH 30.7 pg (25.7-33.7); MCHC 33.3 g/dl (32.0-35.9); MEAN PLT VOLUME 8.4 fl (7.5-11.1); PLATELET COUNT 278 10^3/uL (134-434); RBC 3.44 M/mm3 (4.00-5.60); RDW 17.3 % (11.9-15.9)
[2021-03-23] MEDS: ALLOPURINOL 300 MG TABLET (FP) PO SCH (09:24)
[2021-03-23] MEDS: METOPROLOL TARTRATE 25 MG TABLET (FP) PO SCH ×2 (09:24→21:21)
[2021-03-23] MEDS: PANTOPRAZOLE 40 MG TABLET PO SCH (09:24)
[2021-03-23] MEDS: POLYETHYLENE GLYCOL (HEALTHYLAX) 3350 17 GM PACKET PO SCH (09:24)
[2021-03-23 11:59] LABS: INR 1.21 (0.83-1.09); PROTHROMBIN TIME (PATIENT) 13.6 SEC (9.7-13.0)
[2021-03-23] MEDS: LOSARTAN POTASSIUM 50 MG TABLET PO SCH (21:21)
[2021-03-23] MEDS: ATORVASTATIN CA 80 MG TABLET (FP) PO SCH (21:21)
[2021-03-24] MEDS ORDERED: MEROPENEM 1 GM VIAL (RESTRICTED TO ID) IVPB ONE ×3 (01:52→17:36)
[2021-03-24] MEDS ORDERED: DEXTROSE 5%-WATER 100 ML IVPB ONE ×3 (01:53→17:36)
[2021-03-24] MEDS: MEROPENEM 1 GM in DEXTROSE 5%-WATER 100 ML IVPB SCH ×3 (02:00→17:41)
[2021-03-24] MEDS: GABAPENTIN 300 MG CAPSULE PO SCH ×3 (06:11→22:47)
[2021-03-24] MEDS: INSULIN (NOVOLOG) ASPART 100 UNITS/ML 10ML VIAL SQ SCH ×4 (06:11→22:51)
[2021-03-24] MEDS: DOCUSATE SODIUM 100 MG CAPSULE (FP) PO SCH ×3 (06:11→22:56)
[2021-03-24] MEDS ORDERED: BACITRACIN 15 GM TUBE TOPICAL OINTMENT ONE (07:11)
[2021-03-24] MEDS ORDERED: DEXAMETHASONE SOD PHOSPHATE 4 MG/1 ML VIAL ONE (07:11)
[2021-03-24] MEDS ORDERED: LIDOCAINE HCL 1%, 10 MG/ML (20ML VIAL) ONE (07:11)
[2021-03-24] MEDS ORDERED: PROPOFOL 20 ML ONE (07:14)
[2021-03-24] MEDS ORDERED: MIDAZOLAM HCL 2 MG/2 ML SINGLE DOSE VIAL ONE (07:14)
[2021-03-24] MEDS ORDERED: SUCCINYLCHOLINE CHLORIDE 200 MG/10 ML SYRINGE ONE (07:14)
[2021-03-24] MEDS ORDERED: BUPIVACAINE HCL/PF 0.5% (5MG/ML) 10 ML VIAL ONE (07:15)
[2021-03-24] MEDS ORDERED: LIDOCAINE HCL/PF 2% SDV 5ML VIAL ONE (07:31)
[2021-03-24] MEDS ORDERED: VANCOMYCIN 1,000 MG VIAL (RESTRICTED TO ID ONLY) ONE (07:34)
[2021-03-24 07:38] LABS: HEMATOCRIT 33.1 % (35.4-49); HEMOGLOBIN 10.6 GM/dL (11.7-16.9); MCHC 32.1 g/dl (32.0-35.9); MEAN CELL VOLUME 93.3 fl (80-96); MEAN PLT VOLUME 8.8 fl (7.5-11.1); PLATELET COUNT 258 10^3/uL (134-434); RBC 3.55 M/mm3 (4.00-5.60); RDW 17.5 % (11.9-15.9); WHITE BLOOD COUNT 8.8 K/mm3 (4.0-10.0)
[2021-03-24] MEDS ORDERED: GENTAMICIN SO4 80 MG/2 ML VIAL ONE (07:49)
[2021-03-24] MEDS ORDERED: BUPIVACAINE HCL/PF 0.5% (5 MG/ML) 30 ML VIAL IJ ONE ×2 (07:57)
[2021-03-24] MEDS ORDERED: LIDOCAINE HCL 1%, 10 MG/ML (20ML VIAL) NR ONE ×2 (07:57)
[2021-03-24] MEDS ORDERED: ONDANSETRON 4 MG/2 ML VIAL IVPUSH PRN ×2 (07:58→09:19)
[2021-03-24] MEDS ORDERED: LACTATED RINGERS SOLUTION 1,000 ML IV SCH ×2 (08:00→09:19)
[2021-03-24 08:03] LABS: BLOOD UREA NITROGEN 18.9 mg/dL (7-18); CALCIUM 9.3 mg/dL (8.5-10.1); CREATININE 0.9 mg/dL (0.55-1.3); MAGNESIUM 2.1 mg/dL (1.8-2.4)
[2021-03-24 08:06] LABS: BILIRUBIN,TOTAL 0.4 mg/dL (0.2-1); TOT PROT 7.3 g/dl (6.4-8.2)
[2021-03-24 08:12] LABS: ALBUMIN 2.8 g/dl (3.4-5.0)
[2021-03-24] MEDS ORDERED: SENNOSIDES 8.6MG TABLET (FP) PO PRN (09:19)
[2021-03-24] MEDS: ALLOPURINOL 300 MG TABLET (FP) PO SCH (10:00)
[2021-03-24] MEDS: PANTOPRAZOLE 40 MG TABLET PO SCH (10:00)
[2021-03-24] MEDS: METOPROLOL TARTRATE 25 MG TABLET (FP) PO SCH ×2 (10:00→22:47)
[2021-03-24] MEDS: POLYETHYLENE GLYCOL (HEALTHYLAX) 3350 17 GM PACKET PO SCH (10:00)
[2021-03-24] MEDS ORDERED: ENOXAPARIN NA (PORCINE) 100 MG/1 ML DISP.SYRIN SQ SCH (10:45)
[2021-03-24 11:33] LABS: ANISOCYTOSIS 0; HELMET CELLS 0; HOWELL-JOLLY BODIES 0; MACROCYTOSIS 0; OVALOCYTE 0; PLATELET ESTIMATE NORMAL; ROULEAU 0; SICKELED CELLS 0; TARGET CELLS 0; TEAR DROP CELLS 0; TOXIC GRANULATION 0
[2021-03-24] MEDS ORDERED: HEPARIN NA (PORCINE) 5,000 UNITS/ML 1ML VIAL SQ SCH (14:00)
[2021-03-24] MEDS ORDERED: ENOXAPARIN NA (PORCINE) 40 MG/0.4 ML DISP.SYRIN SQ SCH (22:00)
[2021-03-24] MEDS: APIXABAN 5 MG TABLET PO SCH (22:47)
[2021-03-24] MEDS: LOSARTAN POTASSIUM 50 MG TABLET PO SCH (22:48)
[2021-03-24] MEDS: ATORVASTATIN CA 80 MG TABLET (FP) PO SCH (22:48)
[2021-03-25] MEDS ORDERED: MEROPENEM 1 GM VIAL (RESTRICTED TO ID) IVPB ONE ×3 (00:11→16:52)
[2021-03-25] MEDS ORDERED: DEXTROSE 5%-WATER 100 ML IVPB ONE ×3 (00:11→16:52)
[2021-03-25] MEDS: MEROPENEM 1 GM in DEXTROSE 5%-WATER 100 ML IVPB SCH ×3 (01:36→17:06)
[2021-03-25] MEDS: INSULIN (NOVOLOG) ASPART 100 UNITS/ML 10ML VIAL SQ SCH ×4 (06:01→21:43)
[2021-03-25] MEDS: GABAPENTIN 300 MG CAPSULE PO SCH ×3 (06:01→21:43)
[2021-03-25] MEDS: DOCUSATE SODIUM 100 MG CAPSULE (FP) PO SCH ×3 (06:01→21:41)
[2021-03-25 09:15] LABS: HEMATOCRIT 31.6 % (35.4-49); HEMOGLOBIN 10.6 GM/dL (11.7-16.9); MCHC 33.4 g/dl (32.0-35.9); MEAN CELL VOLUME 92.7 fl (80-96); MEAN PLT VOLUME 9.2 fl (7.5-11.1); PLATELET COUNT 209 10^3/uL (134-434); RBC 3.41 M/mm3 (4.00-5.60); RDW 17.6 % (11.9-15.9); WHITE BLOOD COUNT 9.7 K/mm3 (4.0-10.0)
[2021-03-25 09:29] LABS: INR 1.37 (0.83-1.09); PROTHROMBIN TIME (PATIENT) 15.4 SEC (9.7-13.0)
[2021-03-25 09:32] LABS: ACTIVATED PTT 37.4 SECONDS (25.2-36.5)
[2021-03-25 09:47] LABS: ALBUMIN 2.5 g/dl (3.4-5.0)
[2021-03-25 09:48] LABS: BLOOD UREA NITROGEN 18.3 mg/dL (7-18)
[2021-03-25 09:52] LABS: MAGNESIUM 1.8 mg/dL (1.8-2.4)
[2021-03-25 09:55] LABS: CREATININE 0.9 mg/dL (0.55-1.3)
[2021-03-25 09:56] LABS: BILIRUBIN,TOTAL 0.4 mg/dL (0.2-1)
[2021-03-25] MEDS ORDERED: ENOXAPARIN NA (PORCINE) 40 MG/0.4 ML DISP.SYRIN SQ SCH ×2 (10:00)
[2021-03-25] MEDS: APIXABAN 5 MG TABLET PO SCH ×2 (10:21→21:41)
[2021-03-25] MEDS: POLYETHYLENE GLYCOL (HEALTHYLAX) 3350 17 GM PACKET PO SCH (10:21)
[2021-03-25] MEDS: ALLOPURINOL 300 MG TABLET (FP) PO SCH (10:21)
[2021-03-25] MEDS: PANTOPRAZOLE 40 MG TABLET PO SCH (10:21)
[2021-03-25] MEDS: METOPROLOL TARTRATE 25 MG TABLET (FP) PO SCH ×2 (10:21→21:41)
[2021-03-25] MEDS: ATORVASTATIN CA 80 MG TABLET (FP) PO SCH (21:41)
[2021-03-25] MEDS: LOSARTAN POTASSIUM 50 MG TABLET PO SCH (21:41)
[2021-03-26] MEDS ORDERED: MEROPENEM 1 GM VIAL (RESTRICTED TO ID) IVPB ONE ×3 (02:55→17:04)
[2021-03-26] MEDS ORDERED: DEXTROSE 5%-WATER 100 ML IVPB ONE ×3 (02:56→17:04)
[2021-03-26] MEDS: MEROPENEM 1 GM in DEXTROSE 5%-WATER 100 ML IVPB SCH ×3 (02:58→17:13)
[2021-03-26] MEDS: GABAPENTIN 300 MG CAPSULE PO SCH ×3 (06:06→21:17)
[2021-03-26] MEDS: DOCUSATE SODIUM 100 MG CAPSULE (FP) PO SCH ×4 (06:06→21:20)
[2021-03-26] MEDS: INSULIN (NOVOLOG) ASPART 100 UNITS/ML 10ML VIAL SQ SCH ×4 (06:09→21:21)
[2021-03-26] MEDS ORDERED: INSULIN SLIDING SCALE (NOVOLOG) 1 VIAL SQ ONE (07:52)
[2021-03-26 08:08] LABS: HEMATOCRIT 32.8 % (35.4-49); HEMOGLOBIN 10.6 GM/dL (11.7-16.9); MCHC 32.3 g/dl (32.0-35.9); MEAN CELL VOLUME 92.7 fl (80-96); MEAN PLT VOLUME 9.7 fl (7.5-11.1); PLATELET COUNT 184 10^3/uL (134-434); RBC 3.54 M/mm3 (4.00-5.60); RDW 17.6 % (11.9-15.9); WHITE BLOOD COUNT 9.6 K/mm3 (4.0-10.0)
[2021-03-26 08:24] LABS: CALCIUM 9.1 mg/dL (8.5-10.1)
[2021-03-26 08:25] LABS: BLOOD UREA NITROGEN 17.7 mg/dL (7-18); MAGNESIUM 2.2 mg/dL (1.8-2.4)
[2021-03-26 08:29] LABS: CREATININE 0.9 mg/dL (0.55-1.3)
[2021-03-26 08:30] LABS: BILIRUBIN,TOTAL 0.5 mg/dL (0.2-1); TOT PROT 7.2 g/dl (6.4-8.2)
[2021-03-26 08:36] LABS: ALBUMIN 2.7 g/dl (3.4-5.0)
[2021-03-26] MEDS: APIXABAN 5 MG TABLET PO SCH ×2 (09:13→21:17)
[2021-03-26] MEDS: METOPROLOL TARTRATE 25 MG TABLET (FP) PO SCH ×2 (09:14→21:17)
[2021-03-26] MEDS: PANTOPRAZOLE 40 MG TABLET PO SCH (09:14)
[2021-03-26] MEDS: ALLOPURINOL 300 MG TABLET (FP) PO SCH (09:14)
[2021-03-26] MEDS: POLYETHYLENE GLYCOL (HEALTHYLAX) 3350 17 GM PACKET PO SCH (09:15)
[2021-03-26] MEDS: ASPIRIN 81 MG CHEWABLE TABLETS PO SCH (12:26)
[2021-03-26] MEDS: HYDROCHLOROTHIAZIDE 25 MG TABLET (FP) PO SCH (12:26)
[2021-03-26] MEDS: ATORVASTATIN CA 80 MG TABLET (FP) PO SCH (21:17)
[2021-03-26] MEDS: LOSARTAN POTASSIUM 50 MG TABLET PO SCH (21:17)
[2021-03-27] MEDS ORDERED: MEROPENEM 1 GM VIAL (RESTRICTED TO ID) IVPB ONE ×3 (01:27→17:01)
[2021-03-27] MEDS ORDERED: DEXTROSE 5%-WATER 100 ML IVPB ONE ×3 (01:28→17:01)
[2021-03-27] MEDS: MEROPENEM 1 GM in DEXTROSE 5%-WATER 100 ML IVPB SCH ×3 (01:32→17:23)
[2021-03-27] MEDS: GABAPENTIN 300 MG CAPSULE PO SCH ×3 (06:05→21:03)
[2021-03-27] MEDS: INSULIN (NOVOLOG) ASPART 100 UNITS/ML 10ML VIAL SQ SCH ×4 (06:05→21:03)
[2021-03-27] MEDS: DOCUSATE SODIUM 100 MG CAPSULE (FP) PO SCH ×3 (06:07→21:02)
[2021-03-27 07:29] LABS: HEMATOCRIT 34.7 % (35.4-49); MCH 29.6 pg (25.7-33.7); MCHC 31.6 g/dl (32.0-35.9); MEAN CELL VOLUME 93.6 fl (80-96); MEAN PLT VOLUME 9.9 fl (7.5-11.1); PLATELET COUNT 184 10^3/uL (134-434); RBC 3.71 M/mm3 (4.00-5.60); RDW 17.7 % (11.9-15.9); WHITE BLOOD COUNT 9.3 K/mm3 (4.0-10.0)
[2021-03-27 07:49] LABS: CALCIUM 9.4 mg/dL (8.5-10.1)
[2021-03-27 07:50] LABS: ALBUMIN 2.5 g/dl (3.4-5.0); BLOOD UREA NITROGEN 21.4 mg/dL (7-18); MAGNESIUM 1.9 mg/dL (1.8-2.4)
[2021-03-27 07:55] LABS: BILIRUBIN,TOTAL 0.6 mg/dL (0.2-1); TOT PROT 7.3 g/dl (6.4-8.2)
[2021-03-27] MEDS: METOPROLOL TARTRATE 25 MG TABLET (FP) PO SCH ×2 (09:28→21:03)
[2021-03-27] MEDS: APIXABAN 5 MG TABLET PO SCH ×2 (09:28→21:03)
[2021-03-27] MEDS: HYDROCHLOROTHIAZIDE 25 MG TABLET (FP) PO SCH (09:28)
[2021-03-27] MEDS: POLYETHYLENE GLYCOL (HEALTHYLAX) 3350 17 GM PACKET PO SCH ×2 (09:28→09:31)
[2021-03-27] MEDS: ALLOPURINOL 300 MG TABLET (FP) PO SCH (09:29)
[2021-03-27] MEDS: PANTOPRAZOLE 40 MG TABLET PO SCH (09:29)
[2021-03-27] MEDS: ASPIRIN 81 MG CHEWABLE TABLETS PO SCH (09:29)
[2021-03-27] MEDS: LOSARTAN POTASSIUM 50 MG TABLET PO SCH (21:03)
[2021-03-27] MEDS: ATORVASTATIN CA 80 MG TABLET (FP) PO SCH (21:03)
[2021-03-28] MEDS: GABAPENTIN 300 MG CAPSULE PO SCH ×3 (06:29→21:57)
[2021-03-28] MEDS: INSULIN (NOVOLOG) ASPART 100 UNITS/ML 10ML VIAL SQ SCH ×4 (06:29→21:55)
[2021-03-28] MEDS: DOCUSATE SODIUM 100 MG CAPSULE (FP) PO SCH ×3 (06:29→21:57)
[2021-03-28 08:36] LABS: HEMATOCRIT 35.4 % (35.4-49); HEMOGLOBIN 11.4 GM/dL (11.7-16.9); MCH 30.1 pg (25.7-33.7); MCHC 32.2 g/dl (32.0-35.9); MEAN CELL VOLUME 93.5 fl (80-96); MEAN PLT VOLUME 10.3 fl (7.5-11.1); PLATELET COUNT 204 10^3/uL (134-434); RBC 3.79 M/mm3 (4.00-5.60); RDW 17.6 % (11.9-15.9); WHITE BLOOD COUNT 11.3 K/mm3 (4.0-10.0)
[2021-03-28 09:07] LABS: CALCIUM 9.7 mg/dL (8.5-10.1)
[2021-03-28 09:08] LABS: ALBUMIN 2.8 g/dl (3.4-5.0); BLOOD UREA NITROGEN 31.9 mg/dL (7-18)
[2021-03-28 09:11] LABS: BILIRUBIN,TOTAL 0.5 mg/dL (0.2-1); CREATININE 1.2 mg/dL (0.55-1.3); TOT PROT 7.8 g/dl (6.4-8.2)
[2021-03-28] MEDS ORDERED: DEXTROSE 5%-WATER - 50 ML IVPB ONE (09:17)
[2021-03-28] MEDS: CEFTRIAXONE 2 GM in DEXTROSE 5%-WATER - 2 GM/50 ML IVPB IVPB SCH (10:10)
[2021-03-28] MEDS: POLYETHYLENE GLYCOL (HEALTHYLAX) 3350 17 GM PACKET PO SCH (10:10)
[2021-03-28] MEDS: ASPIRIN 81 MG CHEWABLE TABLETS PO SCH (10:13)
[2021-03-28] MEDS: PANTOPRAZOLE 40 MG TABLET PO SCH (10:13)
[2021-03-28] MEDS: ALLOPURINOL 300 MG TABLET (FP) PO SCH (10:13)
[2021-03-28] MEDS: APIXABAN 5 MG TABLET PO SCH ×2 (10:13→21:57)
[2021-03-28] MEDS: HYDROCHLOROTHIAZIDE 25 MG TABLET (FP) PO SCH (10:14)
[2021-03-28] MEDS: METOPROLOL TARTRATE 25 MG TABLET (FP) PO SCH ×2 (10:14→21:57)
[2021-03-28] MEDS: ATORVASTATIN CA 80 MG TABLET (FP) PO SCH (21:57)
[2021-03-28] MEDS: LOSARTAN POTASSIUM 50 MG TABLET PO SCH (21:57)
[2021-03-29] MEDS: DOCUSATE SODIUM 100 MG CAPSULE (FP) PO SCH ×2 (06:04→13:52)
[2021-03-29] MEDS: GABAPENTIN 300 MG CAPSULE PO SCH ×2 (06:04→13:52)
[2021-03-29] MEDS: INSULIN (NOVOLOG) ASPART 100 UNITS/ML 10ML VIAL SQ SCH ×2 (06:04→11:53)
[2021-03-29] MEDS ORDERED: INSULIN SLIDING SCALE (NOVOLOG) 1 VIAL SQ ONE (07:26)
[2021-03-29 08:23] LABS: HEMATOCRIT 33.4 % (35.4-49); HEMOGLOBIN 10.9 GM/dL (11.7-16.9); MCHC 32.6 g/dl (32.0-35.9); MEAN PLT VOLUME 10.1 fl (7.5-11.1); PLATELET COUNT 191 10^3/uL (134-434); RBC 3.63 M/mm3 (4.00-5.60); RDW 17.2 % (11.9-15.9); WHITE BLOOD COUNT 9.7 K/mm3 (4.0-10.0)
[2021-03-29] MEDS ORDERED: DEXTROSE 5%-WATER - 50 ML IVPB ONE (09:21)
[2021-03-29] MEDS: PANTOPRAZOLE 40 MG TABLET PO SCH (09:33)
[2021-03-29] MEDS: METOPROLOL TARTRATE 25 MG TABLET (FP) PO SCH (09:33)
[2021-03-29] MEDS: CEFTRIAXONE 2 GM in DEXTROSE 5%-WATER - 2 GM/50 ML IVPB IVPB SCH (09:34)
[2021-03-29] MEDS: APIXABAN 5 MG TABLET PO SCH (09:34)
[2021-03-29] MEDS: ALLOPURINOL 300 MG TABLET (FP) PO SCH (09:34)
[2021-03-29] MEDS: ASPIRIN 81 MG CHEWABLE TABLETS PO SCH (09:34)
[2021-03-29] MEDS: HYDROCHLOROTHIAZIDE 25 MG TABLET (FP) PO SCH (09:34)
[2021-03-29] MEDS: POLYETHYLENE GLYCOL (HEALTHYLAX) 3350 17 GM PACKET PO SCH (09:35)
[2021-03-29 14:53] VITALS: BP 120/65; PULSE 71; TEMP 98.1
== END 2021-03-29 18:17 | disposition home or self-care (01) | DRG 253 ==
LOC: JER 12:01 → JERBED 14:27 → J6S 21:09 → J4S 03-21 23:29
PROVIDERS: ADMIT Internal Medicine; ATTEND Nurse Practitioner Acute Care
PROC: 047P3ZZ Dilation of Right Anterior Tibial Artery, Percutaneous Approach (ICD-10-PCS; 2021-03-21)
PROC: 047M3ZZ Dilation of Right Popliteal Artery, Percutaneous Approach (ICD-10-PCS; principal; 2021-03-21 16:00)
PROC: 0Y6X0Z0 Detachment at Right 5th Toe, Complete, Open Approach (ICD-10-PCS; 2021-03-24)
PROC: 0QBN0ZZ Excision of Right Metatarsal, Open Approach (ICD-10-PCS; 2021-03-24)
PROC: 3E10X8Z Irrigation of Skin and Mucous Membranes using Irrigating Substance (ICD-10-PCS; 2021-03-24)
PROC: 3E0102A Introduction of Anti-Infective Envelope into Subcutaneous Tissue, Open Approach (ICD-10-PCS; 2021-03-24)
PROC: 02HV33Z Insertion of Infusion Device into Superior Vena Cava, Percutaneous Approach (ICD-10-PCS; 2021-03-28)
PROC: B518ZZA Fluoroscopy of Superior Vena Cava, Guidance (ICD-10-PCS; 2021-03-28)
DX: E11.51 Type 2 diabetes mellitus with diabetic peripheral angiopathy without gangrene (principal); L97.818 Non-pressure chronic ulcer of other part of right lower leg with other specified severity; M86.8X8 Other osteomyelitis, other site; I12.9 Hypertensive chronic kidney disease with stage 1 through stage 4 chronic kidney disease, or unspecified chronic kidney disease; E11.22 Type 2 diabetes mellitus with diabetic chronic kidney disease; N18.9 Chronic kidney disease, unspecified; M10.9 Gout, unspecified; E11.40 Type 2 diabetes mellitus with diabetic neuropathy, unspecified; E11.622 Type 2 diabetes mellitus with other skin ulcer; Z86.73 Personal history of transient ischemic attack (TIA), and cerebral infarction without residual deficits; E88.81 Metabolic syndrome and other insulin resistance; E11.69 Type 2 diabetes mellitus with other specified complication; I25.119 Atherosclerotic heart disease of native coronary artery with unspecified angina pectoris; K21.9 Gastro-esophageal reflux disease without esophagitis; E66.9 Obesity, unspecified; Z68.38 Body mass index [BMI] 38.0-38.9, adult; R77.8 Other specified abnormalities of plasma proteins; I10 Essential (primary) hypertension; E78.00 Pure hypercholesterolemia, unspecified; Z95.5 Presence of coronary angioplasty implant and graft
CPT/HCPCS: 36415; 36569; 71045-TC-FY; 73630-TC-RT-FY; 76000-TC-FY; 77001-TC-FY; 80053; 82550; 82728; 82962; 83036; 83735; 84100; 84484; 85025; 85027; 85379; 85610; 85651; 85730; 86140; 86769; 87040; 87070; 87075; 87186; 87205; 88304-TC; 88305-TC; 88311-TC; 93005; 93010; 93922; 93926-TC; 94760; 99285-25; C1751; C9803; G0277; G0463-25; J1644; U0003; U0005

== ENCOUNTER 2021-03-30 14:13 | Day surgery (SDC) | payer OTHER ==
[2021-03-30] MEDS ORDERED: CEFTRIAXONE 2 GM in DEXTROSE 5%-WATER 100 ML IVPB ONE (14:15)
[2021-03-30] MEDS ORDERED: DEXTROSE 5%-WATER 100 ML IVPB ONE (15:11)
[2021-03-30] MEDS ORDERED: PT OWN MED DRAWER 7, Y5N ONE (16:55)
[2021-03-30 19:01] VITALS: BP 135/76; PULSE 86; TEMP 98
== END 2021-03-30 18:59 | disposition home or self-care (01) ==
LOC: JINFUSION 14:13 → J7W 14:14 → JINFUSION 18:59
PROVIDERS: ATTEND Internal Medicine Infectious Disease
DX: E11.69 Type 2 diabetes mellitus with other specified complication (principal); M86.8X7 Other osteomyelitis, ankle and foot
CPT/HCPCS: 96365

== ENCOUNTER 2021-03-31 13:42 | Day surgery (SDC) | payer OTHER ==
[2021-03-31] MEDS ORDERED: CEFTRIAXONE 2 GM in DEXTROSE 5%-WATER 100 ML IVPB ONE (14:00)
[2021-03-31] MEDS ORDERED: DEXTROSE 5%-WATER 100 ML IVPB ONE (14:05)
[2021-03-31 15:13] VITALS: BP 109/58; PULSE 63; TEMP 98.1
== END 2021-03-31 15:55 | disposition home or self-care (01) ==
LOC: JINFUSION 13:42 → J7W 13:43 → JINFUSION 15:55
PROVIDERS: ATTEND Internal Medicine Infectious Disease
DX: E11.69 Type 2 diabetes mellitus with other specified complication (principal); M86.8X7 Other osteomyelitis, ankle and foot
CPT/HCPCS: 96365

== ENCOUNTER 2021-04-01 10:33 | Day surgery (SDC) | payer OTHER ==
[2021-04-01] MEDS ORDERED: CEFTRIAXONE 2 GM in DEXTROSE 5%-WATER 100 ML IVPB ONE (11:00)
[2021-04-01] MEDS ORDERED: DEXTROSE 5%-WATER 100 ML IVPB ONE (11:32)
[2021-04-01 14:00] VITALS: BP 105/47; PULSE 68; TEMP 97.8
== END 2021-04-01 13:00 | disposition home or self-care (01) ==
LOC: JINFUSION 10:33 → J7W 10:33 → JINFUSION 13:00
PROVIDERS: ATTEND Internal Medicine Infectious Disease
DX: E11.69 Type 2 diabetes mellitus with other specified complication (principal); M86.8X7 Other osteomyelitis, ankle and foot
CPT/HCPCS: 96365

== ENCOUNTER 2021-04-02 10:34 | Day surgery (SDC) | payer OTHER ==
[2021-04-02 11:07] VITALS: PULSE 70; TEMP 97.9
[2021-04-02] MEDS ORDERED: CEFTRIAXONE 2 GM in DEXTROSE 5%-WATER 100 ML IVPB ONE (11:30)
[2021-04-02] MEDS ORDERED: DEXTROSE 5%-WATER 100 ML IVPB ONE (11:54)
[2021-04-02 13:00] VITALS: BP 133/65
== END 2021-04-02 12:40 | disposition home or self-care (01) ==
LOC: JINFUSION 10:34 → J7W 10:35 → JINFUSION 12:40
PROVIDERS: ATTEND Internal Medicine Infectious Disease
DX: E11.69 Type 2 diabetes mellitus with other specified complication (principal); M86.8X7 Other osteomyelitis, ankle and foot
CPT/HCPCS: 96365

== ENCOUNTER 2021-04-03 10:22 | Day surgery (SDC) | payer OTHER ==
[2021-04-03] MEDS ORDERED: DEXTROSE 5%-WATER 100 ML IVPB ONE (10:41)
[2021-04-03] MEDS ORDERED: CEFTRIAXONE 2 GM in DEXTROSE 5%-WATER 100 ML IVPB ONE (10:45)
[2021-04-03 12:37] VITALS: BP 131/75; PULSE 74; TEMP 97.6
== END 2021-04-03 12:37 | disposition home or self-care (01) ==
LOC: JINFUSION 10:22 → J7W 10:27 → JINFUSION 12:37
PROVIDERS: ATTEND Internal Medicine Infectious Disease
DX: E11.69 Type 2 diabetes mellitus with other specified complication (principal); M86.8X7 Other osteomyelitis, ankle and foot
CPT/HCPCS: 96365

== ENCOUNTER 2021-04-04 10:21 | Day surgery (SDC) | payer OTHER ==
[2021-04-04] MEDS ORDERED: DEXTROSE 5%-WATER 100 ML IVPB ONE (10:44)
[2021-04-04] MEDS ORDERED: CEFTRIAXONE 2 GM in DEXTROSE 5%-WATER 100 ML IVPB ONE (11:00)
[2021-04-04 14:13] VITALS: BP 114/80; TEMP 97.5
[2021-04-04 14:15] VITALS: PULSE 81
== END 2021-04-04 11:40 | disposition home or self-care (01) ==
LOC: JINFUSION 10:21 → J7W 10:22 → JINFUSION 11:40
PROVIDERS: ATTEND Internal Medicine Infectious Disease
DX: E11.69 Type 2 diabetes mellitus with other specified complication (principal); M86.8X7 Other osteomyelitis, ankle and foot
CPT/HCPCS: 36415; 85651; 86140; 96365

== ENCOUNTER 2021-04-05 10:26 | Day surgery (SDC) | payer OTHER ==
[2021-04-05] MEDS ORDERED: DEXTROSE 5%-WATER 100 ML IVPB ONE (10:46)
[2021-04-05] MEDS ORDERED: CEFTRIAXONE 2 GM in DEXTROSE 5%-WATER 100 ML IVPB ONE (11:00)
[2021-04-05 11:55] VITALS: BP 140/47; PULSE 81; TEMP 97.7
== END 2021-04-05 11:55 | disposition home or self-care (01) ==
LOC: JINFUSION 10:26 → J7W 10:27 → JINFUSION 11:55
PROVIDERS: ATTEND Internal Medicine Infectious Disease
DX: E11.69 Type 2 diabetes mellitus with other specified complication (principal); M86.8X7 Other osteomyelitis, ankle and foot
CPT/HCPCS: 96365

== ENCOUNTER 2021-04-06 10:01 | Day surgery (SDC) | payer OTHER ==
[2021-04-06] MEDS ORDERED: CEFTRIAXONE 2 GM in DEXTROSE 5%-WATER 100 ML IVPB ONE (10:45)
[2021-04-06] MEDS ORDERED: DEXTROSE 5%-WATER 100 ML IVPB ONE (10:59)
[2021-04-06 12:14] VITALS: BP 134/91; PULSE 81; TEMP 97.9
== END 2021-04-06 12:43 | disposition home or self-care (01) ==
LOC: J7W 10:01 → JINFUSION 10:01
PROVIDERS: ATTEND Internal Medicine Infectious Disease
DX: E11.69 Type 2 diabetes mellitus with other specified complication (principal); M86.8X7 Other osteomyelitis, ankle and foot
CPT/HCPCS: 96365

== ENCOUNTER 2021-04-07 12:07 | Day surgery (SDC) | payer OTHER ==
[~2021-04-07 12:07] MED LIST: CEFTRIAXONE 2 GM in DEXTROSE 5%-WATER 100 ML IVPB ONE
[2021-04-07] MEDS ORDERED: DEXTROSE 5%-WATER 100 ML IVPB ONE (12:38)
[2021-04-07 13:57] VITALS: BP 144/77; PULSE 76; TEMP 98.2
== END 2021-04-07 13:58 | disposition home or self-care (01) ==
LOC: JINFUSION 12:07 → J7W 12:07 → JINFUSION 13:58
PROVIDERS: ATTEND Internal Medicine Infectious Disease
DX: E11.69 Type 2 diabetes mellitus with other specified complication (principal); M86.8X7 Other osteomyelitis, ankle and foot
CPT/HCPCS: 96365

== ENCOUNTER 2021-04-08 10:06 | Day surgery (SDC) | payer OTHER ==
[2021-04-08] MEDS ORDERED: CEFTRIAXONE 2 GM in DEXTROSE 5%-WATER 100 ML IVPB ONE (10:15)
[2021-04-08] MEDS ORDERED: DEXTROSE 5%-WATER 100 ML IVPB ONE (10:23)
[2021-04-08 10:33] VITALS: BP 109/62; PULSE 80; TEMP 98.2
== END 2021-04-08 13:00 | disposition home or self-care (01) ==
LOC: JINFUSION 10:06 → J7W 10:07 → JINFUSION 13:00
PROVIDERS: ATTEND Internal Medicine Infectious Disease
DX: E11.69 Type 2 diabetes mellitus with other specified complication (principal); M86.8X7 Other osteomyelitis, ankle and foot
CPT/HCPCS: 96365

== ENCOUNTER 2021-04-09 10:28 | Day surgery (SDC) | payer OTHER ==
[2021-04-09] MEDS ORDERED: DEXTROSE 5%-WATER 100 ML IVPB ONE (10:44)
[2021-04-09] MEDS ORDERED: CEFTRIAXONE 2 GM in DEXTROSE 5%-WATER 100 ML IVPB ONE (11:00)
[2021-04-09 14:25] VITALS: BP 116/55; PULSE 75; TEMP 98.2
== END 2021-04-09 14:27 | disposition home or self-care (01) ==
LOC: JINFUSION 10:28 → J7W 10:29 → JINFUSION 14:27
PROVIDERS: ATTEND Internal Medicine Infectious Disease
DX: E11.69 Type 2 diabetes mellitus with other specified complication (principal); M86.8X7 Other osteomyelitis, ankle and foot
CPT/HCPCS: 96365

== ENCOUNTER 2021-04-10 10:44 | Day surgery (SDC) | payer OTHER ==
[2021-04-10] MEDS ORDERED: DEXTROSE 5%-WATER 100 ML IVPB ONE (10:54)
[2021-04-10] MEDS ORDERED: CEFTRIAXONE 2 GM in DEXTROSE 5%-WATER 100 ML IVPB ONE (11:00)
[2021-04-10 14:58] VITALS: BP 126/78; PULSE 72; TEMP 98.2
== END 2021-04-10 12:55 | disposition home or self-care (01) ==
LOC: J7W 10:44 → JINFUSION 10:44
PROVIDERS: ATTEND Internal Medicine Infectious Disease
DX: E11.69 Type 2 diabetes mellitus with other specified complication (principal); M86.8X7 Other osteomyelitis, ankle and foot
CPT/HCPCS: 96365

== ENCOUNTER 2021-04-11 10:01 | Day surgery (SDC) | payer OTHER ==
[2021-04-11] MEDS ORDERED: DEXTROSE 5%-WATER 100 ML IVPB ONE (10:59)
[2021-04-11] MEDS ORDERED: CEFTRIAXONE 2 GM in DEXTROSE 5%-WATER 100 ML IVPB ONE (11:00)
[2021-04-11 12:27] VITALS: BP 110/65; PULSE 74
== END 2021-04-11 12:27 | disposition home or self-care (01) ==
LOC: JINFUSION 10:01 → J7W 10:07 → JINFUSION 12:27
PROVIDERS: ATTEND Internal Medicine Infectious Disease
DX: E11.69 Type 2 diabetes mellitus with other specified complication (principal); M86.8X7 Other osteomyelitis, ankle and foot
CPT/HCPCS: 36415; 85651; 86140; 96365

== ENCOUNTER 2021-04-12 10:10 | Day surgery (SDC) | payer OTHER ==
[2021-04-12] MEDS ORDERED: CEFTRIAXONE 2 GM in DEXTROSE 5%-WATER 100 ML IVPB ONE (10:45)
[2021-04-12] MEDS ORDERED: DEXTROSE 5%-WATER 100 ML IVPB ONE (10:53)
[2021-04-12 11:44] VITALS: BP 108/68; PULSE 74; TEMP 98.3
== END 2021-04-12 11:46 | disposition home or self-care (01) ==
LOC: JINFUSION 10:10 → J7W 10:12 → JINFUSION 11:46
PROVIDERS: ATTEND Internal Medicine Infectious Disease
DX: E11.69 Type 2 diabetes mellitus with other specified complication (principal); M86.8X7 Other osteomyelitis, ankle and foot
CPT/HCPCS: 96365

== ENCOUNTER 2021-04-13 09:55 | Day surgery (SDC) | payer OTHER ==
[2021-04-13] MEDS ORDERED: CEFTRIAXONE 2 GM in DEXTROSE 5%-WATER 100 ML IVPB ONE (10:00)
[2021-04-13] MEDS ORDERED: DEXTROSE 5%-WATER 100 ML IVPB ONE (10:07)
[2021-04-13 11:22] VITALS: BP 127/62; PULSE 82; TEMP 97.7
== END 2021-04-13 11:20 | disposition home or self-care (01) ==
LOC: JINFUSION 09:55
PROVIDERS: ATTEND Internal Medicine Infectious Disease
DX: E11.69 Type 2 diabetes mellitus with other specified complication (principal); M86.8X7 Other osteomyelitis, ankle and foot
CPT/HCPCS: 96365

== ENCOUNTER 2021-04-14 09:53 | Day surgery (SDC) | payer OTHER ==
[2021-04-14 10:05] VITALS: BP 147/55; PULSE 79; TEMP 97.7
[2021-04-14] MEDS ORDERED: CEFTRIAXONE 2 GM in DEXTROSE 5%-WATER 100 ML IVPB ONE (10:30)
== END 2021-04-14 11:05 | disposition home or self-care (01) ==
LOC: JINFUSION 09:53 → J7W 09:54 → JINFUSION 11:05
PROVIDERS: ATTEND Internal Medicine Infectious Disease
DX: E11.69 Type 2 diabetes mellitus with other specified complication (principal); M86.8X7 Other osteomyelitis, ankle and foot
CPT/HCPCS: 96365

== ENCOUNTER 2021-04-15 10:16 | Day surgery (SDC) | payer OTHER ==
[2021-04-15] MEDS ORDERED: DEXTROSE 5%-WATER 100 ML IVPB ONE (10:38)
[2021-04-15 16:15] VITALS: BP 110/49; PULSE 73; TEMP 98.1
== END 2021-04-15 11:57 | disposition home or self-care (01) ==
LOC: JINFUSION 10:16 → J7W 10:17 → JINFUSION 11:57
PROVIDERS: ATTEND Internal Medicine Infectious Disease
DX: E11.69 Type 2 diabetes mellitus with other specified complication (principal); M86.8X7 Other osteomyelitis, ankle and foot
CPT/HCPCS: 96365

== ENCOUNTER 2021-04-16 09:56 | Day surgery (SDC) | payer OTHER ==
[2021-04-16] MEDS ORDERED: CEFTRIAXONE 2 GM in DEXTROSE 5%-WATER 100 ML IVPB ONE (10:00)
[2021-04-16] MEDS ORDERED: DEXTROSE 5%-WATER 100 ML IVPB ONE (10:04)
[2021-04-16 12:57] VITALS: BP 130/85; PULSE 87; TEMP 97.8
== END 2021-04-16 12:57 | disposition home or self-care (01) ==
LOC: JINFUSION 09:56 → J7W 09:57 → JINFUSION 12:57
PROVIDERS: ATTEND Internal Medicine Infectious Disease
DX: E11.69 Type 2 diabetes mellitus with other specified complication (principal); M86.8X7 Other osteomyelitis, ankle and foot
CPT/HCPCS: 96365

== ENCOUNTER 2021-04-17 10:05 | Day surgery (SDC) | payer OTHER ==
[2021-04-17] MEDS ORDERED: DEXTROSE 5%-WATER 100 ML IVPB ONE (10:16)
[2021-04-17 12:37] VITALS: BP 133/76; PULSE 78
== END 2021-04-17 11:38 | disposition home or self-care (01) ==
LOC: JINFUSION 10:05 → J7W 10:06 → JINFUSION 11:38
PROVIDERS: ATTEND Internal Medicine Infectious Disease
DX: E11.69 Type 2 diabetes mellitus with other specified complication (principal); M86.8X7 Other osteomyelitis, ankle and foot
CPT/HCPCS: 96365

== ENCOUNTER 2021-04-18 09:56 | Day surgery (SDC) | payer OTHER ==
[2021-04-18] MEDS ORDERED: DEXTROSE 5%-WATER 100 ML IVPB ONE (10:40)
[2021-04-18 15:07] VITALS: BP 138/51; PULSE 70; TEMP 97.8
== END 2021-04-18 11:30 | disposition home or self-care (01) ==
LOC: JINFUSION 09:56 → J7W 10:21 → JINFUSION 11:30
PROVIDERS: ATTEND Internal Medicine Infectious Disease
DX: E11.69 Type 2 diabetes mellitus with other specified complication (principal); M86.8X7 Other osteomyelitis, ankle and foot
CPT/HCPCS: 36415; 85651; 86140; 96365

== ENCOUNTER 2021-04-19 10:10 | Day surgery (SDC) | payer OTHER ==
[2021-04-19] MEDS ORDERED: DEXTROSE 5%-WATER 100 ML IVPB ONE (10:21)
[2021-04-19 11:41] VITALS: BP 141/73; PULSE 80; TEMP 98.2
== END 2021-04-19 11:30 | disposition home or self-care (01) ==
LOC: JINFUSION 10:10 → J7W 10:12 → JINFUSION 11:30
PROVIDERS: ATTEND Internal Medicine Infectious Disease
DX: E11.69 Type 2 diabetes mellitus with other specified complication (principal); M86.8X7 Other osteomyelitis, ankle and foot
CPT/HCPCS: 96365

== ENCOUNTER 2021-04-20 09:59 | Day surgery (SDC) | payer OTHER ==
[2021-04-20] MEDS ORDERED: DEXTROSE 5%-WATER 100 ML IVPB ONE (10:10)
[2021-04-20] MEDS ORDERED: CEFTRIAXONE 2 GM in DEXTROSE 5%-WATER 100 ML IVPB ONE (10:15)
[2021-04-20 10:21] VITALS: BP 126/47; PULSE 77; TEMP 98.4
== END 2021-04-20 10:50 | disposition home or self-care (01) ==
LOC: J7W 09:59 → JINFUSION 09:59
PROVIDERS: ATTEND Internal Medicine Infectious Disease
DX: E11.69 Type 2 diabetes mellitus with other specified complication (principal); M86.8X7 Other osteomyelitis, ankle and foot
CPT/HCPCS: 96365

== ENCOUNTER 2021-04-21 10:09 | Day surgery (SDC) | payer OTHER ==
[2021-04-21] MEDS ORDERED: DEXTROSE 5%-WATER 100 ML IVPB ONE (10:24)
[2021-04-21 12:26] VITALS: BP 114/62; PULSE 69; TEMP 98
== END 2021-04-21 12:52 | disposition home or self-care (01) ==
LOC: JINFUSION 10:09 → J7W 10:09 → JINFUSION 12:52
PROVIDERS: ATTEND Internal Medicine Infectious Disease
DX: E11.69 Type 2 diabetes mellitus with other specified complication (principal); M86.8X7 Other osteomyelitis, ankle and foot
CPT/HCPCS: 96365

== ENCOUNTER 2021-04-22 10:05 | Day surgery (SDC) | payer OTHER ==
[2021-04-22] MEDS ORDERED: DEXTROSE 5%-WATER 100 ML IVPB ONE (10:15)
[2021-04-22 15:11] VITALS: BP 123/70; PULSE 78; TEMP 98.1
== END 2021-04-22 11:05 | disposition home or self-care (01) ==
LOC: JINFUSION 10:05 → J7W 10:05 → JINFUSION 11:05
PROVIDERS: ATTEND Internal Medicine Infectious Disease
DX: E11.9 Type 2 diabetes mellitus without complications (principal); M86.8X7 Other osteomyelitis, ankle and foot
CPT/HCPCS: 96365; 96372

== ENCOUNTER 2021-04-23 11:08 | Day surgery (SDC) | payer OTHER ==
[2021-04-23 13:07] VITALS: BP 114/63; PULSE 66; TEMP 98.1
== END 2021-04-23 13:54 | disposition home or self-care (01) ==
LOC: J7W 11:08 → JINFUSION 11:08
PROVIDERS: ATTEND Internal Medicine Infectious Disease
DX: E11.69 Type 2 diabetes mellitus with other specified complication (principal); M86.8X7 Other osteomyelitis, ankle and foot
CPT/HCPCS: 96365

== ENCOUNTER 2021-04-24 09:48 | Day surgery (SDC) | payer OTHER ==
[2021-04-24] MEDS ORDERED: DEXTROSE 5%-WATER 100 ML IVPB ONE (10:06)
[2021-04-24] MEDS ORDERED: CEFTRIAXONE 2 GM in DEXTROSE 5%-WATER 100 ML IVPB ONE (10:15)
[2021-04-24 10:53] VITALS: BP 111/67; PULSE 68; TEMP 98
== END 2021-04-24 10:56 | disposition home or self-care (01) ==
LOC: JINFUSION 09:48 → J7W 09:48 → JINFUSION 10:56
PROVIDERS: ATTEND Internal Medicine Infectious Disease
DX: E11.9 Type 2 diabetes mellitus without complications (principal); M86.8X7 Other osteomyelitis, ankle and foot
CPT/HCPCS: 96365

== ENCOUNTER 2021-04-25 10:07 | Day surgery (SDC) | payer OTHER ==
[2021-04-25] MEDS ORDERED: DEXTROSE 5%-WATER 100 ML IVPB ONE (10:51)
[2021-04-25 12:54] VITALS: BP 118/56; PULSE 77; TEMP 98.3
== END 2021-04-25 11:55 | disposition home or self-care (01) ==
LOC: JINFUSION 10:07 → J7W 10:08 → JINFUSION 11:55
PROVIDERS: ATTEND Internal Medicine Infectious Disease
DX: E11.69 Type 2 diabetes mellitus with other specified complication (principal); M86.8X7 Other osteomyelitis, ankle and foot
CPT/HCPCS: 36415; 85651; 86140; 96365

== ENCOUNTER 2021-04-26 10:02 | Day surgery (SDC) | payer OTHER ==
[2021-04-26] MEDS ORDERED: DEXTROSE 5%-WATER 100 ML IVPB ONE (10:27)
[2021-04-26 10:47] VITALS: TEMP 98
[2021-04-26 11:14] VITALS: BP 115/53; PULSE 71
== END 2021-04-26 11:57 | disposition home or self-care (01) ==
LOC: J7W 10:02 → JINFUSION 10:02
PROVIDERS: ATTEND Internal Medicine Infectious Disease
DX: E11.69 Type 2 diabetes mellitus with other specified complication (principal); M86.8X7 Other osteomyelitis, ankle and foot
CPT/HCPCS: 96365

== ENCOUNTER 2021-04-27 10:07 | Day surgery (SDC) | payer OTHER ==
[2021-04-27] MEDS ORDERED: DEXTROSE 5%-WATER 100 ML IVPB ONE (10:11)
[2021-04-27 10:49] VITALS: TEMP 98.6
[2021-04-27 12:53] VITALS: BP 122/65; PULSE 66
== END 2021-04-27 12:55 | disposition home or self-care (01) ==
LOC: JINFUSION 10:07 → J7W 10:08 → JINFUSION 12:55
PROVIDERS: ATTEND Internal Medicine Infectious Disease
DX: E11.69 Type 2 diabetes mellitus with other specified complication (principal); M86.8X7 Other osteomyelitis, ankle and foot
CPT/HCPCS: 96365

== ENCOUNTER 2021-07-01 19:42 | Emergency (ER) | payer OTHER ==
[2021-07-01 20:02] VITALS: BP 128/67; PULSE 103; TEMP 98; BMI 36.5
[2021-07-01] MEDS ORDERED: CALCIUM CHLORIDE 1 GM/10 ML *DISP.SYRIN ONE (20:14)
[2021-07-02 00:56] LABS: BASO % 1.2 % (0-2.0); HEMATOCRIT 33.4 % (35.4-49); HEMOGLOBIN 11.3 GM/dL (11.7-16.9); LYMPH % 27.1 % (8-40); MCH 30.4 pg (25.7-33.7); MCHC 33.7 g/dl (32.0-35.9); MEAN CELL VOLUME 90.3 fl (80-96); MEAN PLT VOLUME 9.1 fl (7.5-11.1); MONO % 13.5 % (3.8-10.2); NEUT % 54.2 % (42.8-82.8); PLATELET COUNT 185 10^3/uL (134-434); WHITE BLOOD COUNT 6.7 K/mm3 (4.0-10.0)
[2021-07-02 01:17] LABS: ALBUMIN 3.6 g/dl (3.4-5.0); CALCIUM 9.2 mg/dL (8.5-10.1)
[2021-07-02 01:18] LABS: BLOOD UREA NITROGEN 23.4 mg/dL (7-18)
[2021-07-02 01:20] LABS: CREATININE 1.1 mg/dL (0.55-1.3)
[2021-07-02 01:23] LABS: BILIRUBIN,TOTAL 0.2 mg/dL (0.2-1); TOT PROT 7.6 g/dl (6.4-8.2)
[2021-07-02 01:39] LABS: ERYTHROCYTE SEDIMENTATION RATE 31 mm/hr (0-20)
== END 2021-07-02 02:55 | disposition home or self-care (01) ==
LOC: JER 19:42
DX: E11.610 Type 2 diabetes mellitus with diabetic neuropathic arthropathy (principal); G60.9 Hereditary and idiopathic neuropathy, unspecified; M77.31 Calcaneal spur, right foot; E11.621 Type 2 diabetes mellitus with foot ulcer; L97.512 Non-pressure chronic ulcer of other part of right foot with fat layer exposed; M86.69 Other chronic osteomyelitis, multiple sites
CPT/HCPCS: 36415; 73610-TC-LT-FY; 73610-TC-RT-FY; 73630-TC-LT; 73630-TC-RT-FY; 80053; 82962; 85025; 85651; 86140; 99284-25; G0277

== ENCOUNTER 2021-08-29 17:32 | Inpatient (IN) | payer OTHER ==
[2021-08-29] MEDS ORDERED: CEFTRIAXONE 1,000 MG in DEXTROSE 5%-WATER - 50 ML IVPB ONE (20:40)
[2021-08-29] MEDS ORDERED: VANCOMYCIN 1 GM in D5W (PRE-DOCKED) 1,000 MG/250 ML IVPB ONE (20:40)
[2021-08-29] MEDS ORDERED: CEFTRIAXONE 1 GM/50 ML BAG ONE (21:08)
[2021-08-29] MEDS ORDERED: GABAPENTIN 300 MG CAPSULE PO ONE (23:01)
[2021-08-29 23:07] LABS: BASO % 1.2 % (0-2.0); EOS % 6.7 % (0-4.5); HEMATOCRIT 33.2 % (35.4-49); LYMPH % 36.9 % (8-40); MCH 30.1 pg (25.7-33.7); MEAN CELL VOLUME 91.3 fl (80-96); MEAN PLT VOLUME 8.9 fl (7.5-11.1); MONO % 9.1 % (3.8-10.2); NEUT % 46.1 % (42.8-82.8); PLATELET COUNT 233 10^3/uL (134-434); RBC 3.64 M/mm3 (4.00-5.60); RDW 14.8 % (11.9-15.9); WHITE BLOOD COUNT 7.9 K/mm3 (4.0-10.0)
[2021-08-29] MEDS ORDERED: GABAPENTIN 300 MG CAPSULE ONE (23:14)
[2021-08-29] MEDS ORDERED: VANCOMYCIN 1 GRAM (PRE-DOCKED) 1,000 MG/250 ML BAG IVPB ONE (23:14)
[2021-08-29 23:28] LABS: ALBUMIN 3.6 g/dl (3.4-5.0); BLOOD UREA NITROGEN 36.1 mg/dL (7-18)
[2021-08-29 23:31] LABS: CREATININE 1.2 mg/dL (0.55-1.3)
[2021-08-29 23:33] LABS: BILIRUBIN,TOTAL 0.5 mg/dL (0.2-1); TOT PROT 7.6 g/dl (6.4-8.2)
[2021-08-30] MEDS ORDERED: PIPERACILLIN/TAZOB 3.375 GM 3.375 GM/50 ML BAG IVPB ONE ×2 (05:05→09:06)
[2021-08-30] MEDS: PIPERACILLIN/TAZOB 3.375 GM 3.375 GM in DEXTROSE 5%-WATER - 50 ML IVPB SCH ×3 (05:10→18:42)
[2021-08-30] MEDS ORDERED: ALBUTEROL SO4 HFA INHALER IH PRN (05:25)
[2021-08-30] MEDS ORDERED: guaiFENesin 200 MG/10 ML 10 ML UNIT-DOSE CUPS PO ONE (05:25)
[2021-08-30] MEDS ORDERED: GABAPENTIN 300 MG CAPSULE ONE (06:18)
[2021-08-30] MEDS ORDERED: guaiFENesin/D-METHORPHAN HB 10 ML UNIT-DOSE CUPS ONE (06:18)
[2021-08-30] MEDS: GABAPENTIN 300 MG CAPSULE PO SCH ×3 (06:30→22:44)
[2021-08-30] MEDS ORDERED: FUROSEMIDE 20 MG TABLET (FP) ONE (08:04)
[2021-08-30] MEDS ORDERED: APIXABAN 5 MG TABLET ONE (08:04)
[2021-08-30 08:28] LABS: BASO % 1.4 % (0-2.0); EOS % 7.4 % (0-4.5); HEMATOCRIT 33.7 % (35.4-49); HEMOGLOBIN 11.4 GM/dL (11.7-16.9); LYMPH % 33.9 % (8-40); MCH 30.6 pg (25.7-33.7); MCHC 33.7 g/dl (32.0-35.9); MEAN CELL VOLUME 90.8 fl (80-96); MEAN PLT VOLUME 9.5 fl (7.5-11.1); MONO % 8.4 % (3.8-10.2); NEUT % 48.9 % (42.8-82.8); PLATELET COUNT 209 10^3/uL (134-434); RBC 3.71 M/mm3 (4.00-5.60); RDW 14.7 % (11.9-15.9); WHITE BLOOD COUNT 7.2 K/mm3 (4.0-10.0)
[2021-08-30 08:50] LABS: ALBUMIN 3.6 g/dl (3.4-5.0); BLOOD UREA NITROGEN 34.6 mg/dL (7-18); CALCIUM 9.7 mg/dL (8.5-10.1); CO2 27 mmol/L (21-32)
[2021-08-30 08:51] LABS: GLUCOSE,RANDOM 103 mg/dL (74-106)
[2021-08-30 08:53] LABS: MAGNESIUM 1.6 mg/dL (1.8-2.4)
[2021-08-30 08:54] LABS: PHOSPHOROUS 3.8 mg/dL (2.5-4.9)
[2021-08-30 08:56] LABS: BILIRUBIN,TOTAL 0.3 mg/dL (0.2-1); CREATININE 1.1 mg/dL (0.55-1.3); IRON SERUM 81 ug/dL (50-175)
[2021-08-30 08:58] LABS: ALK PHOS 61 U/L (45-117); SGOT/AST 20 U/L (15-37); SGPT/ALT 20 U/L (13-61); TOT PROT 7.4 g/dl (6.4-8.2)
[2021-08-30 08:59] LABS: TOTAL IRON BINDING CAPACITY 348 ug/dL (250-450)
[2021-08-30] MEDS ORDERED: MAGNESIUM OXIDE 400 MG TABLET (FP) ONE (09:05)
[2021-08-30] MEDS: APIXABAN 5 MG TABLET PO SCH ×2 (09:07→22:44)
[2021-08-30] MEDS: FUROSEMIDE 20 MG TABLET (FP) PO SCH (09:07)
[2021-08-30 09:22] LABS: ANION GAP 6 MMOL/L (8-16); CHLORIDE 104 mmol/L (98-107); SODIUM 138 mmol/L (136-145)
[2021-08-30] MEDS ORDERED: MAGNESIUM OXIDE 400 MG TABLET (FP) PO ONE (09:30)
[2021-08-30] MEDS ORDERED: MAGNESIUM 1GM/D5W 100ML - 100 ML IVPB IVPB ONE (14:30)
[2021-08-30] MEDS ORDERED: DEXTROSE 5%-WATER - 50 ML IVPB ONE (18:21)
[2021-08-30] MEDS ORDERED: PIPERACILLIN/TAZOBACTAM 3.375 GM VIAL IVPB ONE (18:21)
[2021-08-30] MEDS ORDERED: LOSARTAN POTASSIUM 50 MG TABLET PO SCH (22:00)
[2021-08-30] MEDS: ATORVASTATIN CA 80 MG TABLET (FP) PO SCH (22:44)
[2021-08-30] MEDS: METOPROLOL TARTRATE 25 MG TABLET (FP) PO SCH (22:44)
[2021-08-30] MEDS: BUDESONIDE/FORMETEROL FUMARATE 160/4.5 mcg INHALER IH SCH (22:44)
[2021-08-30] MEDS: COLLAGENASE CLOSTRIDIUM HIST. 30 GRAMS TUBE TP SCH (22:54)
[2021-08-31] MEDS ORDERED: VANCOMYCIN 1 GM in D5W (PRE-DOCKED) 1,000 MG/250 ML IVPB SCH
[2021-08-31] MEDS ORDERED: VANCOMYCIN 1 GM/200 ML PREMIX BAG IVPB SCH
[2021-08-31] MEDS ORDERED: PIPERACILLIN/TAZOB 3.375 GM 3.375 GM in DEXTROSE 5%-WATER - 50 ML IVPB SCH (02:00)
[2021-08-31] MEDS ORDERED: PIPERACILLIN/TAZOBACTAM 3.375 GM VIAL IVPB ONE ×3 (02:22→16:00)
[2021-08-31] MEDS ORDERED: DEXTROSE 5%-WATER - 50 ML IVPB ONE ×2 (02:23→09:07)
[2021-08-31] MEDS: PIPERACILLIN/TAZOB 3.375 GM 3.375 GM in DEXTROSE 5%-WATER - 50 ML IVPB SCH ×2 (02:26→10:38)
[2021-08-31] MEDS: GABAPENTIN 300 MG CAPSULE PO SCH ×3 (06:19→21:46)
[2021-08-31] MEDS: FUROSEMIDE 20 MG TABLET (FP) PO SCH (09:34)
[2021-08-31] MEDS: BUDESONIDE/FORMETEROL FUMARATE 160/4.5 mcg INHALER IH SCH ×2 (09:34→21:47)
[2021-08-31] MEDS: APIXABAN 5 MG TABLET PO SCH (09:34)
[2021-08-31] MEDS: COLLAGENASE CLOSTRIDIUM HIST. 30 GRAMS TUBE TP SCH (09:34)
[2021-08-31] MEDS: METOPROLOL TARTRATE 25 MG TABLET (FP) PO SCH ×2 (09:34→21:46)
[2021-08-31 10:01] LABS: HEMATOCRIT 34.1 % (35.4-49); HEMOGLOBIN 11.4 GM/dL (11.7-16.9); MCH 30.4 pg (25.7-33.7); MCHC 33.4 g/dl (32.0-35.9); MEAN CELL VOLUME 90.8 fl (80-96); PLATELET COUNT 234 10^3/uL (134-434); RBC 3.76 M/mm3 (4.00-5.60); RDW 14.5 % (11.9-15.9); WHITE BLOOD COUNT 7.3 K/mm3 (4.0-10.0)
[2021-08-31 10:02] LABS: BASO % 1.4 % (0-2.0); EOS % 8.8 % (0-4.5); LYMPH % 32.5 % (8-40); MEAN PLT VOLUME 9.1 fl (7.5-11.1); MONO % 8.6 % (3.8-10.2); NEUT % 48.7 % (42.8-82.8)
[2021-08-31 10:19] LABS: CALCIUM 10.1 mg/dL (8.5-10.1)
[2021-08-31 10:20] LABS: BLOOD UREA NITROGEN 26.2 mg/dL (7-18)
[2021-08-31 10:23] LABS: CREATININE 1.1 mg/dL (0.55-1.3)
[2021-08-31] MEDS: INSULIN SLIDING SCALE (NOVOLOG) 1 VIAL SQ SCH ×5 (10:37→21:47)
[2021-08-31] MEDS: PIPERACILLIN/TAZOB 3.375 GM 3.375 GM in SODIUM CHLORIDE 50 ML IVPB SCH (16:59)
[2021-08-31] MEDS: ATORVASTATIN CA 80 MG TABLET (FP) PO SCH (21:46)
[2021-09-01] MEDS ORDERED: SODIUM CHLORIDE 50 ML IVPB ONE ×2 (01:31→08:47)
[2021-09-01] MEDS ORDERED: PIPERACILLIN/TAZOBACTAM 3.375 GM VIAL IVPB ONE ×3 (01:31→18:01)
[2021-09-01] MEDS: PIPERACILLIN/TAZOB 3.375 GM 3.375 GM in SODIUM CHLORIDE 50 ML IVPB SCH ×3 (01:51→18:35)
[2021-09-01] MEDS: INSULIN SLIDING SCALE (NOVOLOG) 1 VIAL SQ SCH ×4 (06:12→21:38)
[2021-09-01] MEDS: GABAPENTIN 300 MG CAPSULE PO SCH ×3 (06:13→21:36)
[2021-09-01 08:28] LABS: BASO % 1.4 % (0-2.0); EOS % 7.5 % (0-4.5); HEMATOCRIT 34.6 % (35.4-49); HEMOGLOBIN 11.6 GM/dL (11.7-16.9); MCH 30.6 pg (25.7-33.7); MCHC 33.6 g/dl (32.0-35.9); MEAN CELL VOLUME 91.1 fl (80-96); MEAN PLT VOLUME 9.5 fl (7.5-11.1); MONO % 8.2 % (3.8-10.2); NEUT % 46.9 % (42.8-82.8); PLATELET COUNT 233 10^3/uL (134-434); RDW 14.7 % (11.9-15.9)
[2021-09-01 08:42] LABS: ACTIVATED PTT 34.4 SECONDS (25.2-36.5); INR 1.18 (0.83-1.09); PROTHROMBIN TIME (PATIENT) 13.6 SEC (9.7-13.0)
[2021-09-01 08:45] LABS: CALCIUM 10.1 mg/dL (8.5-10.1)
[2021-09-01 08:46] LABS: BLOOD UREA NITROGEN 27.6 mg/dL (7-18)
[2021-09-01 08:49] LABS: CREATININE 1.1 mg/dL (0.55-1.3); PHOSPHOROUS 4.2 mg/dL (2.5-4.9)
[2021-09-01 08:50] LABS: BILIRUBIN,TOTAL 0.6 mg/dL (0.2-1)
[2021-09-01] MEDS: BUDESONIDE/FORMETEROL FUMARATE 160/4.5 mcg INHALER IH SCH ×2 (10:22→21:42)
[2021-09-01] MEDS: FUROSEMIDE 20 MG TABLET (FP) PO SCH (10:22)
[2021-09-01] MEDS: COLLAGENASE CLOSTRIDIUM HIST. 30 GRAMS TUBE TP SCH (10:23)
[2021-09-01] MEDS: METOPROLOL TARTRATE 25 MG TABLET (FP) PO SCH ×2 (10:23→21:37)
[2021-09-01] MEDS ORDERED: LIDOCAINE HCL 2% 100 MG/5 ML DISP.SYRIN ONE (13:25)
[2021-09-01] MEDS ORDERED: PROPOFOL 20 ML ONE ×3 (13:25)
[2021-09-01] MEDS ORDERED: MIDAZOLAM HCL 2 MG/2 ML SINGLE DOSE VIAL ONE (13:25)
[2021-09-01] MEDS ORDERED: ceFAZolin SODIUM 1 GM VIAL ONE (13:39)
[2021-09-01] MEDS ORDERED: ceFAZolin SODIUM 1 GM VIAL IVPB ONE (13:40)
[2021-09-01] MEDS ORDERED: LIDOCAINE HCL 1%, 10 MG/ML (50 mL VIAL) INF ONE (13:45)
[2021-09-01] MEDS ORDERED: PROMETHAZINE HCL 25 MG/1 ML VIAL IVPUSH PRN ×2 (14:39→15:52)
[2021-09-01] MEDS ORDERED: ONDANSETRON 4 MG/2 ML VIAL IVPUSH PRN ×2 (14:39→15:52)
[2021-09-01] MEDS ORDERED: LACTATED RINGERS SOLUTION 1,000 ML IV SCH ×2 (14:45→15:52)
[2021-09-01] MEDS ORDERED: ACETAMINOPHEN 1000 MG/100 ML BAG IVPB PRN (15:26)
[2021-09-01] MEDS ORDERED: FENTANYL CITRATE/PF 50 MCG/ML VIAL ONE (15:41)
[2021-09-01] MEDS ORDERED: ALBUTEROL SO4 HFA INHALER IH PRN (15:52)
[2021-09-01] MEDS: APIXABAN 5 MG TABLET PO SCH (21:36)
[2021-09-01] MEDS: ATORVASTATIN CA 80 MG TABLET (FP) PO SCH (21:37)
[2021-09-02] MEDS ORDERED: SODIUM CHLORIDE 50 ML IVPB ONE ×3 (00:42→16:26)
[2021-09-02] MEDS ORDERED: PIPERACILLIN/TAZOBACTAM 3.375 GM VIAL IVPB ONE ×3 (00:42→16:26)
[2021-09-02] MEDS: PIPERACILLIN/TAZOB 3.375 GM 3.375 GM in SODIUM CHLORIDE 50 ML IVPB SCH ×3 (01:09→17:10)
[2021-09-02] MEDS: GABAPENTIN 300 MG CAPSULE PO SCH ×3 (05:51→22:35)
[2021-09-02] MEDS: INSULIN SLIDING SCALE (NOVOLOG) 1 VIAL SQ SCH ×4 (06:15→22:34)
[2021-09-02 09:32] LABS: BASO % 1.3 % (0-2.0); EOS % 6.8 % (0-4.5); HEMATOCRIT 32.9 % (35.4-49); HEMOGLOBIN 10.8 GM/dL (11.7-16.9); LYMPH % 29.8 % (8-40); MCH 29.8 pg (25.7-33.7); MCHC 32.8 g/dl (32.0-35.9); MEAN CELL VOLUME 90.8 fl (80-96); NEUT % 54.1 % (42.8-82.8); PLATELET COUNT 214 10^3/uL (134-434); RBC 3.62 M/mm3 (4.00-5.60); RDW 14.6 % (11.9-15.9); WHITE BLOOD COUNT 7.4 K/mm3 (4.0-10.0)
[2021-09-02] MEDS: APIXABAN 5 MG TABLET PO SCH ×2 (09:45→22:36)
[2021-09-02] MEDS: METOPROLOL TARTRATE 25 MG TABLET (FP) PO SCH ×2 (09:45→22:36)
[2021-09-02] MEDS: COLLAGENASE CLOSTRIDIUM HIST. 30 GRAMS TUBE TP SCH (09:45)
[2021-09-02] MEDS: BUDESONIDE/FORMETEROL FUMARATE 160/4.5 mcg INHALER IH SCH ×2 (09:45→22:38)
[2021-09-02 09:54] LABS: BLOOD UREA NITROGEN 22.3 mg/dL (7-18); CALCIUM 9.4 mg/dL (8.5-10.1)
[2021-09-02 09:58] LABS: CREATININE 1.2 mg/dL (0.55-1.3)
[2021-09-02] MEDS ORDERED: INSULIN (NOVOLOG) ASPART 100 UNITS/ML 10ML VIAL ONE (11:15)
[2021-09-02] MEDS: LOSARTAN POTASSIUM 50 MG TABLET PO SCH (19:30)
[2021-09-02] MEDS: ATORVASTATIN CA 80 MG TABLET (FP) PO SCH (22:36)
[2021-09-03] MEDS ORDERED: SODIUM CHLORIDE 50 ML IVPB ONE ×3 (03:03→17:04)
[2021-09-03] MEDS ORDERED: PIPERACILLIN/TAZOBACTAM 3.375 GM VIAL IVPB ONE ×3 (03:03→17:04)
[2021-09-03] MEDS: PIPERACILLIN/TAZOB 3.375 GM 3.375 GM in SODIUM CHLORIDE 50 ML IVPB SCH ×3 (03:07→17:30)
[2021-09-03] MEDS: GABAPENTIN 300 MG CAPSULE PO SCH ×3 (06:55→21:12)
[2021-09-03] MEDS: INSULIN SLIDING SCALE (NOVOLOG) 1 VIAL SQ SCH ×4 (06:55→21:11)
[2021-09-03] MEDS: METOPROLOL TARTRATE 25 MG TABLET (FP) PO SCH ×2 (09:10→21:12)
[2021-09-03] MEDS: HYDROCHLOROTHIAZIDE 25 MG TABLET (FP) PO SCH (09:10)
[2021-09-03] MEDS: LOSARTAN POTASSIUM 50 MG TABLET PO SCH (09:10)
[2021-09-03] MEDS: APIXABAN 5 MG TABLET PO SCH ×2 (09:11→21:12)
[2021-09-03] MEDS: BUDESONIDE/FORMETEROL FUMARATE 160/4.5 mcg INHALER IH SCH ×2 (09:17→21:13)
[2021-09-03] MEDS: COLLAGENASE CLOSTRIDIUM HIST. 30 GRAMS TUBE TP SCH (09:18)
[2021-09-03 10:16] LABS: BASO % 1.3 % (0-2.0); EOS % 6.9 % (0-4.5); HEMATOCRIT 32.2 % (35.4-49); HEMOGLOBIN 10.9 GM/dL (11.7-16.9); LYMPH % 35.2 % (8-40); MCH 30.9 pg (25.7-33.7); MCHC 33.8 g/dl (32.0-35.9); MEAN CELL VOLUME 91.5 fl (80-96); MEAN PLT VOLUME 9.5 fl (7.5-11.1); MONO % 8.5 % (3.8-10.2); NEUT % 48.1 % (42.8-82.8); PLATELET COUNT 228 10^3/uL (134-434); RBC 3.52 M/mm3 (4.00-5.60); RDW 14.5 % (11.9-15.9); WHITE BLOOD COUNT 8.2 K/mm3 (4.0-10.0)
[2021-09-03 10:34] LABS: BLOOD UREA NITROGEN 17.8 mg/dL (7-18); CALCIUM 9.9 mg/dL (8.5-10.1); CREATININE 1.1 mg/dL (0.55-1.3)
[2021-09-03 13:49] VITALS: BMI 36.0
[2021-09-03] MEDS: ATORVASTATIN CA 80 MG TABLET (FP) PO SCH (21:12)
[2021-09-04] MEDS ORDERED: PIPERACILLIN/TAZOBACTAM 3.375 GM VIAL IVPB ONE ×5 (01:06→17:00)
[2021-09-04] MEDS ORDERED: SODIUM CHLORIDE 50 ML IVPB ONE ×5 (01:06→17:00)
[2021-09-04] MEDS: PIPERACILLIN/TAZOB 3.375 GM 3.375 GM in SODIUM CHLORIDE 50 ML IVPB SCH ×3 (01:43→18:10)
[2021-09-04] MEDS: GABAPENTIN 300 MG CAPSULE PO SCH ×3 (06:10→21:59)
[2021-09-04] MEDS: INSULIN SLIDING SCALE (NOVOLOG) 1 VIAL SQ SCH ×4 (06:23→22:00)
[2021-09-04] MEDS: METOPROLOL TARTRATE 25 MG TABLET (FP) PO SCH ×2 (09:45→21:59)
[2021-09-04] MEDS: LOSARTAN POTASSIUM 50 MG TABLET PO SCH (09:46)
[2021-09-04] MEDS: APIXABAN 5 MG TABLET PO SCH ×2 (09:46→21:59)
[2021-09-04] MEDS: HYDROCHLOROTHIAZIDE 25 MG TABLET (FP) PO SCH (09:46)
[2021-09-04] MEDS: BUDESONIDE/FORMETEROL FUMARATE 160/4.5 mcg INHALER IH SCH ×2 (09:46→22:00)
[2021-09-04] MEDS: COLLAGENASE CLOSTRIDIUM HIST. 30 GRAMS TUBE TP SCH (13:53)
[2021-09-04] MEDS ORDERED: guaiFENesin 200 MG/10 ML 10 ML UNIT-DOSE CUPS PO PRN (13:56)
[2021-09-04] MEDS: ATORVASTATIN CA 80 MG TABLET (FP) PO SCH (21:59)
[2021-09-05] MEDS ORDERED: SODIUM CHLORIDE 50 ML IVPB ONE ×2 (01:05→09:24)
[2021-09-05] MEDS ORDERED: PIPERACILLIN/TAZOBACTAM 3.375 GM VIAL IVPB ONE ×3 (01:05→16:36)
[2021-09-05] MEDS: PIPERACILLIN/TAZOB 3.375 GM 3.375 GM in SODIUM CHLORIDE 50 ML IVPB SCH ×3 (01:35→17:35)
[2021-09-05] MEDS: GABAPENTIN 300 MG CAPSULE PO SCH ×3 (06:46→21:39)
[2021-09-05] MEDS: INSULIN SLIDING SCALE (NOVOLOG) 1 VIAL SQ SCH ×4 (06:46→21:41)
[2021-09-05] MEDS: LOSARTAN POTASSIUM 50 MG TABLET PO SCH (09:40)
[2021-09-05] MEDS: APIXABAN 5 MG TABLET PO SCH ×2 (09:40→21:39)
[2021-09-05] MEDS: METOPROLOL TARTRATE 25 MG TABLET (FP) PO SCH ×2 (09:40→21:39)
[2021-09-05] MEDS: HYDROCHLOROTHIAZIDE 25 MG TABLET (FP) PO SCH (09:41)
[2021-09-05] MEDS: COLLAGENASE CLOSTRIDIUM HIST. 30 GRAMS TUBE TP SCH (09:42)
[2021-09-05] MEDS: BUDESONIDE/FORMETEROL FUMARATE 160/4.5 mcg INHALER IH SCH ×2 (09:42→21:42)
[2021-09-05 11:29] LABS: BASO % 1.1 % (0-2.0); EOS % 7.8 % (0-4.5); HEMATOCRIT 33.4 % (35.4-49); LYMPH % 29.1 % (8-40); MCH 30.2 pg (25.7-33.7); MEAN CELL VOLUME 91.8 fl (80-96); MEAN PLT VOLUME 9.5 fl (7.5-11.1); PLATELET COUNT 235 10^3/uL (134-434); RBC 3.64 M/mm3 (4.00-5.60); RDW 14.5 % (11.9-15.9); WHITE BLOOD COUNT 7.3 K/mm3 (4.0-10.0)
[2021-09-05 11:56] LABS: ALBUMIN 3.4 g/dl (3.4-5.0)
[2021-09-05 11:58] LABS: CALCIUM 9.4 mg/dL (8.5-10.1)
[2021-09-05 11:59] LABS: CREATININE 1.2 mg/dL (0.55-1.3)
[2021-09-05 12:00] LABS: BILIRUBIN,TOTAL 0.3 mg/dL (0.2-1)
[2021-09-05 12:01] LABS: BLOOD UREA NITROGEN 26.2 mg/dL (7-18); MAGNESIUM 1.9 mg/dL (1.8-2.4); TOT PROT 7.6 g/dl (6.4-8.2)
[2021-09-05] MEDS: ATORVASTATIN CA 80 MG TABLET (FP) PO SCH (21:39)
[2021-09-06] MEDS ORDERED: PIPERACILLIN/TAZOBACTAM 3.375 GM VIAL IVPB ONE ×3 (00:10→18:12)
[2021-09-06] MEDS: PIPERACILLIN/TAZOB 3.375 GM 3.375 GM in SODIUM CHLORIDE 50 ML IVPB SCH ×3 (01:13→18:19)
[2021-09-06] MEDS: GABAPENTIN 300 MG CAPSULE PO SCH ×3 (05:48→21:37)
[2021-09-06] MEDS: INSULIN SLIDING SCALE (NOVOLOG) 1 VIAL SQ SCH ×4 (06:19→21:42)
[2021-09-06 08:35] LABS: BASO % 1.2 % (0-2.0); HEMATOCRIT 33.5 % (35.4-49); HEMOGLOBIN 11.2 GM/dL (11.7-16.9); MCH 30.4 pg (25.7-33.7); MCHC 33.4 g/dl (32.0-35.9); MEAN CELL VOLUME 90.9 fl (80-96); MEAN PLT VOLUME 8.9 fl (7.5-11.1); MONO % 7.9 % (3.8-10.2); NEUT % 50.9 % (42.8-82.8); PLATELET COUNT 241 10^3/uL (134-434); RBC 3.69 M/mm3 (4.00-5.60); RDW 14.8 % (11.9-15.9); WHITE BLOOD COUNT 8.4 K/mm3 (4.0-10.0)
[2021-09-06 09:07] LABS: CALCIUM 9.6 mg/dL (8.5-10.1)
[2021-09-06 09:08] LABS: BLOOD UREA NITROGEN 25.4 mg/dL (7-18)
[2021-09-06] MEDS ORDERED: SODIUM CHLORIDE 50 ML IVPB ONE ×2 (09:09→18:12)
[2021-09-06 09:11] LABS: CREATININE 1.1 mg/dL (0.55-1.3)
[2021-09-06] MEDS: APIXABAN 5 MG TABLET PO SCH (09:14)
[2021-09-06] MEDS: METOPROLOL TARTRATE 25 MG TABLET (FP) PO SCH ×2 (09:15→21:36)
[2021-09-06] MEDS: BUDESONIDE/FORMETEROL FUMARATE 160/4.5 mcg INHALER IH SCH ×2 (09:17→21:44)
[2021-09-06] MEDS: HYDROCHLOROTHIAZIDE 25 MG TABLET (FP) PO SCH (09:17)
[2021-09-06] MEDS: LOSARTAN POTASSIUM 50 MG TABLET PO SCH (09:17)
[2021-09-06] MEDS: COLLAGENASE CLOSTRIDIUM HIST. 30 GRAMS TUBE TP SCH (09:17)
[2021-09-06] MEDS: ATORVASTATIN CA 80 MG TABLET (FP) PO SCH (21:36)
[2021-09-07] MEDS ORDERED: SODIUM CHLORIDE 50 ML IVPB ONE ×3 (00:19→17:44)
[2021-09-07] MEDS ORDERED: PIPERACILLIN/TAZOBACTAM 3.375 GM VIAL IVPB ONE ×3 (00:19→17:44)
[2021-09-07] MEDS: PIPERACILLIN/TAZOB 3.375 GM 3.375 GM in SODIUM CHLORIDE 50 ML IVPB SCH ×3 (00:59→17:50)
[2021-09-07] MEDS: GABAPENTIN 300 MG CAPSULE PO SCH ×3 (05:24→21:12)
[2021-09-07] MEDS: INSULIN SLIDING SCALE (NOVOLOG) 1 VIAL SQ SCH ×4 (06:18→21:19)
[2021-09-07 08:41] LABS: BASO % 1.3 % (0-2.0); EOS % 8.2 % (0-4.5); HEMATOCRIT 32.8 % (35.4-49); HEMOGLOBIN 11.1 GM/dL (11.7-16.9); LYMPH % 32.6 % (8-40); MCH 30.8 pg (25.7-33.7); MCHC 33.8 g/dl (32.0-35.9); MEAN PLT VOLUME 9.1 fl (7.5-11.1); NEUT % 48.9 % (42.8-82.8); PLATELET COUNT 237 10^3/uL (134-434); RBC 3.61 M/mm3 (4.00-5.60); RDW 14.6 % (11.9-15.9); WHITE BLOOD COUNT 6.9 K/mm3 (4.0-10.0)
[2021-09-07 08:42] LABS: INR 1.13 (0.83-1.09)
[2021-09-07 08:44] LABS: ACTIVATED PTT 33.8 SECONDS (25.2-36.5)
[2021-09-07 08:58] LABS: BLOOD UREA NITROGEN 24.3 mg/dL (7-18); CALCIUM 9.6 mg/dL (8.5-10.1)
[2021-09-07 09:02] LABS: CREATININE 1.1 mg/dL (0.55-1.3)
[2021-09-07] MEDS: METOPROLOL TARTRATE 25 MG TABLET (FP) PO SCH ×2 (09:12→21:12)
[2021-09-07] MEDS: HYDROCHLOROTHIAZIDE 25 MG TABLET (FP) PO SCH (09:12)
[2021-09-07] MEDS: LOSARTAN POTASSIUM 50 MG TABLET PO SCH (09:13)
[2021-09-07] MEDS: COLLAGENASE CLOSTRIDIUM HIST. 30 GRAMS TUBE TP SCH (09:15)
[2021-09-07] MEDS: BUDESONIDE/FORMETEROL FUMARATE 160/4.5 mcg INHALER IH SCH ×2 (09:15→21:20)
[2021-09-07] MEDS ORDERED: LIDOCAINE HCL 1%, 10 MG/ML (20ML VIAL) ONE (14:00)
[2021-09-07] MEDS ORDERED: LIDOCAINE HCL 1%, 10 MG/ML (20ML VIAL) NR ONE ×2 (14:03)
[2021-09-07] MEDS ORDERED: PROPOFOL 20 ML ONE (14:15)
[2021-09-07] MEDS ORDERED: MIDAZOLAM HCL 2 MG/2 ML SINGLE DOSE VIAL ONE (14:15)
[2021-09-07] MEDS ORDERED: ceFAZolin SODIUM 1 GM VIAL ONE (14:21)
[2021-09-07] MEDS ORDERED: ALBUTEROL SO4 HFA INHALER IH PRN (15:59)
[2021-09-07] MEDS ORDERED: guaiFENesin 200 MG/10 ML 10 ML UNIT-DOSE CUPS PO PRN (15:59)
[2021-09-07] MEDS ORDERED: INSULIN (NOVOLOG) ASPART 100 UNITS/ML 10ML VIAL ONE (21:04)
[2021-09-07] MEDS: ATORVASTATIN CA 80 MG TABLET (FP) PO SCH (21:13)
[2021-09-07] MEDS: APIXABAN 5 MG TABLET PO SCH (21:13)
[2021-09-08] MEDS ORDERED: PIPERACILLIN/TAZOBACTAM 3.375 GM VIAL IVPB ONE ×3 (01:05→11:10)
[2021-09-08] MEDS ORDERED: SODIUM CHLORIDE 50 ML IVPB ONE ×3 (01:06→11:11)
[2021-09-08] MEDS: PIPERACILLIN/TAZOB 3.375 GM 3.375 GM in SODIUM CHLORIDE 50 ML IVPB SCH ×2 (01:34→11:02)
[2021-09-08] MEDS: GABAPENTIN 300 MG CAPSULE PO SCH ×3 (06:21→23:29)
[2021-09-08] MEDS: INSULIN SLIDING SCALE (NOVOLOG) 1 VIAL SQ SCH ×4 (06:37→23:30)
[2021-09-08 08:18] LABS: EOS % 6.2 % (0-4.5); HEMATOCRIT 32.6 % (35.4-49); HEMOGLOBIN 10.9 GM/dL (11.7-16.9); LYMPH % 27.5 % (8-40); MCH 30.6 pg (25.7-33.7); MCHC 33.4 g/dl (32.0-35.9); MEAN CELL VOLUME 91.7 fl (80-96); MEAN PLT VOLUME 9.2 fl (7.5-11.1); MONO % 8.9 % (3.8-10.2); NEUT % 56.4 % (42.8-82.8); PLATELET COUNT 247 10^3/uL (134-434); RBC 3.56 M/mm3 (4.00-5.60); RDW 14.6 % (11.9-15.9); WHITE BLOOD COUNT 8.7 K/mm3 (4.0-10.0)
[2021-09-08 08:35] LABS: CALCIUM 9.7 mg/dL (8.5-10.1)
[2021-09-08 08:36] LABS: BLOOD UREA NITROGEN 24.9 mg/dL (7-18)
[2021-09-08 08:39] LABS: CREATININE 1.1 mg/dL (0.55-1.3)
[2021-09-08] MEDS: METOPROLOL TARTRATE 25 MG TABLET (FP) PO SCH ×2 (11:01→23:29)
[2021-09-08] MEDS: APIXABAN 5 MG TABLET PO SCH ×2 (11:01→23:29)
[2021-09-08] MEDS: HYDROCHLOROTHIAZIDE 25 MG TABLET (FP) PO SCH (11:01)
[2021-09-08] MEDS: LOSARTAN POTASSIUM 50 MG TABLET PO SCH (11:01)
[2021-09-08] MEDS: COLLAGENASE CLOSTRIDIUM HIST. 30 GRAMS TUBE TP SCH (11:01)
[2021-09-08] MEDS: BUDESONIDE/FORMETEROL FUMARATE 160/4.5 mcg INHALER IH SCH ×2 (11:04→23:31)
[2021-09-08] MEDS ORDERED: INSULIN (NOVOLOG) ASPART 100 UNITS/ML 10ML VIAL ONE (11:49)
[2021-09-08] MEDS: AMOX TR/POT CLAV 875MG/125MG TABLETS (FP) PO SCH (17:16)
[2021-09-08] MEDS: ATORVASTATIN CA 80 MG TABLET (FP) PO SCH (23:28)
[2021-09-09] MEDS: GABAPENTIN 300 MG CAPSULE PO SCH ×2 (07:08→13:18)
[2021-09-09] MEDS: INSULIN SLIDING SCALE (NOVOLOG) 1 VIAL SQ SCH ×3 (07:09→17:17)
[2021-09-09] MEDS: AMOX TR/POT CLAV 875MG/125MG TABLETS (FP) PO SCH ×2 (08:31→17:17)
[2021-09-09 08:34] VITALS: PULSE 67
[2021-09-09] MEDS: BUDESONIDE/FORMETEROL FUMARATE 160/4.5 mcg INHALER IH SCH (09:56)
[2021-09-09] MEDS: LOSARTAN POTASSIUM 50 MG TABLET PO SCH (09:56)
[2021-09-09] MEDS: HYDROCHLOROTHIAZIDE 25 MG TABLET (FP) PO SCH (09:56)
[2021-09-09] MEDS: METOPROLOL TARTRATE 25 MG TABLET (FP) PO SCH (09:56)
[2021-09-09] MEDS: APIXABAN 5 MG TABLET PO SCH (09:56)
[2021-09-09] MEDS: COLLAGENASE CLOSTRIDIUM HIST. 30 GRAMS TUBE TP SCH (09:57)
[2021-09-09 09:58] LABS: BASO % 1.2 % (0-2.0); HEMATOCRIT 33.2 % (35.4-49); HEMOGLOBIN 11.2 GM/dL (11.7-16.9); LYMPH % 27.4 % (8-40); MCH 30.5 pg (25.7-33.7); MCHC 33.8 g/dl (32.0-35.9); MEAN CELL VOLUME 90.1 fl (80-96); MEAN PLT VOLUME 9.2 fl (7.5-11.1); MONO % 9.2 % (3.8-10.2); NEUT % 57.2 % (42.8-82.8); PLATELET COUNT 254 10^3/uL (134-434); RBC 3.68 M/mm3 (4.00-5.60); RDW 14.8 % (11.9-15.9); WHITE BLOOD COUNT 8.4 K/mm3 (4.0-10.0)
[2021-09-09 10:12] LABS: CALCIUM 9.3 mg/dL (8.5-10.1)
[2021-09-09 10:13] LABS: BLOOD UREA NITROGEN 26.2 mg/dL (7-18)
[2021-09-09 10:16] LABS: CREATININE 1.1 mg/dL (0.55-1.3)
[2021-09-09 15:15] VITALS: BP 145/56; TEMP 98.4
== END 2021-09-09 18:50 | disposition home health service (06) | DRG 271 ==
LOC: JER 17:32 → JERBED 08-30 00:31 → J6S 08-30 12:26
PROVIDERS: ADMIT Internal Medicine; ATTEND Internal Medicine
PROC: 047K3ZZ Dilation of Right Femoral Artery, Percutaneous Approach (ICD-10-PCS; 2021-09-01)
PROC: 047K3Z1 Dilation of Right Femoral Artery using Drug-Coated Balloon, Percutaneous Approach (ICD-10-PCS; 2021-09-01)
PROC: B41DZZZ Fluoroscopy of Aorta and Bilateral Lower Extremity Arteries (ICD-10-PCS; 2021-09-01)
PROC: B41FZZZ Fluoroscopy of Right Lower Extremity Arteries (ICD-10-PCS; 2021-09-01)
PROC: 04CK3ZZ Extirpation of Matter from Right Femoral Artery, Percutaneous Approach (ICD-10-PCS; principal; 2021-09-01 15:00)
PROC: 04CL3ZZ Extirpation of Matter from Left Femoral Artery, Percutaneous Approach (ICD-10-PCS; 2021-09-07)
PROC: 047L3DZ Dilation of Left Femoral Artery with Intraluminal Device, Percutaneous Approach (ICD-10-PCS; 2021-09-07)
PROC: 047L3Z1 Dilation of Left Femoral Artery using Drug-Coated Balloon, Percutaneous Approach (ICD-10-PCS; 2021-09-07)
PROC: B41GZZZ Fluoroscopy of Left Lower Extremity Arteries (ICD-10-PCS; 2021-09-07)
PROC: B41DZZZ Fluoroscopy of Aorta and Bilateral Lower Extremity Arteries (ICD-10-PCS; 2021-09-07)
DX: E11.51 Type 2 diabetes mellitus with diabetic peripheral angiopathy without gangrene (principal); N17.9 Acute kidney failure, unspecified; M86.8X7 Other osteomyelitis, ankle and foot; L03.115 Cellulitis of right lower limb; M10.9 Gout, unspecified; E11.42 Type 2 diabetes mellitus with diabetic polyneuropathy; I10 Essential (primary) hypertension; E78.00 Pure hypercholesterolemia, unspecified; Z79.84 Long term (current) use of oral hypoglycemic drugs; Z86.16 Personal history of COVID-19; D64.9 Anemia, unspecified; E66.9 Obesity, unspecified; Z68.34 Body mass index [BMI] 34.0-34.9, adult; L03.031 Cellulitis of right toe; L97.519 Non-pressure chronic ulcer of other part of right foot with unspecified severity; I48.0 Paroxysmal atrial fibrillation; E11.69 Type 2 diabetes mellitus with other specified complication; D63.8 Anemia in other chronic diseases classified elsewhere
CPT/HCPCS: 36415; 73630-TC-RT-FY; 75635-TC; 76000-TC-FY; 76775-TC; 80048; 80053; 82550; 82553; 82728; 82962; 83540; 83550; 83735; 84100; 85025; 85610; 85651; 85730; 86140; 86850; 86900; 86901; 87040; 93005; 93010; 93922; 93926-TC; 94760; 99285-25; C9803-CS; G0277; Q9967; U0003; U0005

== ENCOUNTER 2021-10-03 12:06 | Inpatient (IN) | payer OTHER ==
[2021-10-03] MEDS ORDERED: VANCOMYCIN/WATER 2 GM/400 ML PREMIX BAG IVPB ONE (14:51)
[2021-10-03] MEDS ORDERED: GABAPENTIN 300 MG CAPSULE PO ONE (15:03)
[2021-10-03 15:05] LABS: BASO % 0.6 % (0-2.0); EOS % 1.9 % (0-4.5); HEMATOCRIT 36.3 % (35.4-49); HEMOGLOBIN 11.9 GM/dL (11.7-16.9); LYMPH % 19.7 % (8-40); MCH 29.7 pg (25.7-33.7); MCHC 32.7 g/dl (32.0-35.9); MEAN CELL VOLUME 90.9 fl (80-96); MEAN PLT VOLUME 9.3 fl (7.5-11.1); MONO % 10.1 % (3.8-10.2); NEUT % 67.7 % (42.8-82.8); PLATELET COUNT 240 10^3/uL (134-434); RBC 3.99 M/mm3 (4.00-5.60); RDW 14.5 % (11.9-15.9); WHITE BLOOD COUNT 10.9 K/mm3 (4.0-10.0)
[2021-10-03] MEDS ORDERED: GABAPENTIN 300 MG CAPSULE ONE ×2 (15:11→21:28)
[2021-10-03] MEDS ORDERED: VANCOMYCIN 1 GRAM (PRE-DOCKED) 2,000 MG/500 ML BAG IVPB ONE (15:12)
[2021-10-03 15:25] LABS: ALBUMIN 3.5 g/dl (3.4-5.0); BLOOD UREA NITROGEN 29.3 mg/dL (7-18); CALCIUM 10.1 mg/dL (8.5-10.1)
[2021-10-03 15:29] LABS: CREATININE 1.1 mg/dL (0.55-1.3)
[2021-10-03 15:30] LABS: BILIRUBIN,TOTAL 0.5 mg/dL (0.2-1); TOT PROT 7.8 g/dl (6.4-8.2)
[2021-10-03 15:39] LABS: ERYTHROCYTE SEDIMENTATION RATE 74 mm/hr (0-20)
[2021-10-03 16:41] LABS: CALCIUM 9.6 mg/dL (8.5-10.1)
[2021-10-03 16:42] LABS: ALBUMIN 3.5 g/dl (3.4-5.0); BLOOD UREA NITROGEN 29.3 mg/dL (7-18)
[2021-10-03 16:44] LABS: CREATININE 1.2 mg/dL (0.55-1.3)
[2021-10-03 16:46] LABS: BILIRUBIN,TOTAL 0.4 mg/dL (0.2-1); TOT PROT 7.4 g/dl (6.4-8.2)
[2021-10-03] MEDS ORDERED: PIPERACILLIN/TAZOB 4.5 GM 4.5 GM in DEXTROSE 5%-WATER 100 ML IVPB ONE (18:07)
[2021-10-03] MEDS ORDERED: PIPERACILLIN/TAZOB 4.5 GM 4.5 GM/100 ML BAG IVPB ONE ×2 (18:52→21:13)
[2021-10-03] MEDS ORDERED: HYDROCHLOROTHIAZIDE 25 MG TABLET (FP) PO PRN ×2 (19:16→19:28)
[2021-10-03] MEDS ORDERED: APIXABAN 5 MG TABLET ONE (21:27)
[2021-10-03] MEDS ORDERED: METOPROLOL TARTRATE 25 MG TABLET (FP) ONE (21:27)
[2021-10-03] MEDS ORDERED: LOSARTAN POTASSIUM 50 MG TABLET ONE (21:28)
[2021-10-03] MEDS: LOSARTAN POTASSIUM 50 MG TABLET PO SCH (22:09)
[2021-10-03] MEDS: GABAPENTIN 300 MG CAPSULE PO SCH (22:10)
[2021-10-03] MEDS: APIXABAN 5 MG TABLET PO SCH (22:10)
[2021-10-03] MEDS: METOPROLOL TARTRATE 25 MG TABLET (FP) PO SCH (22:10)
[2021-10-03] MEDS: INSULIN SLIDING SCALE (NOVOLOG) 1 VIAL SQ SCH (22:54)
[2021-10-03] MEDS: BUDESONIDE/FORMETEROL FUMARATE 160/4.5 mcg INHALER IH SCH (22:55)
[2021-10-04] MEDS ORDERED: PIPERACILLIN/TAZOB 3.375 GM 3.375 GM in DEXTROSE 5%-WATER - 50 ML IVPB SCH (02:00)
[2021-10-04] MEDS: PIPERACILLIN/TAZOB 3.375 GM 3.375 GM in DEXTROSE 5%-WATER - 50 ML IVPB SCH ×3 (02:05→17:55)
[2021-10-04] MEDS ORDERED: PIPERACILLIN/TAZOB 3.375 GM 3.375 GM/50 ML BAG IVPB ONE (05:56)
[2021-10-04] MEDS ORDERED: GABAPENTIN 300 MG CAPSULE ONE (06:08)
[2021-10-04] MEDS: GABAPENTIN 300 MG CAPSULE PO SCH ×3 (06:14→21:18)
[2021-10-04 07:21] LABS: BASO % 0.7 % (0-2.0); HEMATOCRIT 30.6 % (35.4-49); HEMOGLOBIN 10.4 GM/dL (11.7-16.9); LYMPH % 23.5 % (8-40); MCH 30.3 pg (25.7-33.7); MCHC 33.8 g/dl (32.0-35.9); MEAN CELL VOLUME 89.7 fl (80-96); MEAN PLT VOLUME 9.1 fl (7.5-11.1); MONO % 10.4 % (3.8-10.2); NEUT % 62.4 % (42.8-82.8); PLATELET COUNT 229 10^3/uL (134-434); RBC 3.41 M/mm3 (4.00-5.60); RDW 14.3 % (11.9-15.9); WHITE BLOOD COUNT 8.1 K/mm3 (4.0-10.0)
[2021-10-04 07:43] LABS: ALBUMIN 3.1 g/dl (3.4-5.0); BLOOD UREA NITROGEN 27.7 mg/dL (7-18); CALCIUM 9.4 mg/dL (8.5-10.1)
[2021-10-04] MEDS: INSULIN SLIDING SCALE (NOVOLOG) 1 VIAL SQ SCH ×4 (07:43→21:22)
[2021-10-04 07:45] LABS: CREATININE 1.2 mg/dL (0.55-1.3); PHOSPHOROUS 3.5 mg/dL (2.5-4.9)
[2021-10-04 07:47] LABS: BILIRUBIN,TOTAL 0.4 mg/dL (0.2-1)
[2021-10-04] MEDS ORDERED: ENOXAPARIN NA (PORCINE) 40 MG/0.4 ML DISP.SYRIN SQ SCH (10:00)
[2021-10-04] MEDS ORDERED: ASPIRIN 81 MG CHEWABLE TABLETS PO SCH (10:00)
[2021-10-04 11:32] VITALS: BMI 36.2
[2021-10-04] MEDS ORDERED: DEXTROSE 5%-WATER - 50 ML IVPB ONE ×2 (11:35→17:49)
[2021-10-04] MEDS ORDERED: PIPERACILLIN/TAZOBACTAM 3.375 GM VIAL IVPB ONE ×2 (11:35→17:49)
[2021-10-04] MEDS: APIXABAN 5 MG TABLET PO SCH ×2 (11:46→21:18)
[2021-10-04] MEDS: FUROSEMIDE 20 MG TABLET (FP) PO SCH (11:46)
[2021-10-04] MEDS: METOPROLOL TARTRATE 25 MG TABLET (FP) PO SCH ×2 (11:46→21:15)
[2021-10-04] MEDS: CLOPIDOGREL BISULFATE 75 MG TABLET (FP) PO SCH (11:48)
[2021-10-04] MEDS: PANTOPRAZOLE 40 MG TABLET PO SCH (11:48)
[2021-10-04] MEDS: BUDESONIDE/FORMETEROL FUMARATE 160/4.5 mcg INHALER IH SCH ×2 (14:08→21:19)
[2021-10-04] MEDS: COLLAGENASE CLOSTRIDIUM HIST. 30 GRAMS TUBE TP SCH (15:53)
[2021-10-04] MEDS: LOSARTAN POTASSIUM 50 MG TABLET PO SCH (21:19)
[2021-10-04] MEDS ORDERED: ACETAMINOPHEN 325 MG TABLET (FP) PO ONE (22:49)
[2021-10-05] MEDS ORDERED: DEXTROSE 5%-WATER - 50 ML IVPB ONE ×4 (01:25→18:03)
[2021-10-05] MEDS ORDERED: PIPERACILLIN/TAZOBACTAM 3.375 GM VIAL IVPB ONE ×4 (01:25→18:03)
[2021-10-05] MEDS: PIPERACILLIN/TAZOB 3.375 GM 3.375 GM in DEXTROSE 5%-WATER - 50 ML IVPB SCH ×3 (01:29→18:27)
[2021-10-05] MEDS: GABAPENTIN 300 MG CAPSULE PO SCH ×3 (06:10→21:42)
[2021-10-05] MEDS: INSULIN SLIDING SCALE (NOVOLOG) 1 VIAL SQ SCH ×4 (06:11→22:51)
[2021-10-05] MEDS: FUROSEMIDE 20 MG TABLET (FP) PO SCH (10:58)
[2021-10-05] MEDS: BUDESONIDE/FORMETEROL FUMARATE 160/4.5 mcg INHALER IH SCH ×2 (10:58→22:52)
[2021-10-05] MEDS: APIXABAN 5 MG TABLET PO SCH ×2 (10:58→21:43)
[2021-10-05] MEDS: METOPROLOL TARTRATE 25 MG TABLET (FP) PO SCH ×2 (10:58→21:42)
[2021-10-05] MEDS: PANTOPRAZOLE 40 MG TABLET PO SCH (10:58)
[2021-10-05] MEDS: COLLAGENASE CLOSTRIDIUM HIST. 30 GRAMS TUBE TP SCH (10:58)
[2021-10-05] MEDS: CLOPIDOGREL BISULFATE 75 MG TABLET (FP) PO SCH (10:58)
[2021-10-05 11:02] LABS: BLOOD UREA NITROGEN 26.2 mg/dL (7-18)
[2021-10-05 11:06] LABS: CALCIUM 9.4 mg/dL (8.5-10.1); CREATININE 1.1 mg/dL (0.55-1.3)
[2021-10-05 16:10] LABS: BASO % 0.9 % (0-2.0); EOS % 4.1 % (0-4.5); HEMOGLOBIN 11.1 GM/dL (11.7-16.9); LYMPH % 23.2 % (8-40); MCH 30.4 pg (25.7-33.7); MCHC 33.5 g/dl (32.0-35.9); MEAN CELL VOLUME 90.8 fl (80-96); MEAN PLT VOLUME 8.5 fl (7.5-11.1); MONO % 10.6 % (3.8-10.2); NEUT % 61.2 % (42.8-82.8); PLATELET COUNT 263 10^3/uL (134-434); RBC 3.64 M/mm3 (4.00-5.60); RDW 14.7 % (11.9-15.9); WHITE BLOOD COUNT 9.8 K/mm3 (4.0-10.0)
[2021-10-05 16:40] LABS: MAGNESIUM 1.8 mg/dL (1.8-2.4)
[2021-10-05 16:45] LABS: PHOSPHOROUS 3.5 mg/dL (2.5-4.9)
[2021-10-05] MEDS: LOSARTAN POTASSIUM 50 MG TABLET PO SCH (21:42)
[2021-10-06] MEDS ORDERED: DEXTROSE 5%-WATER - 50 ML IVPB ONE ×3 (02:07→17:57)
[2021-10-06] MEDS ORDERED: PIPERACILLIN/TAZOBACTAM 3.375 GM VIAL IVPB ONE ×3 (02:07→17:56)
[2021-10-06] MEDS: PIPERACILLIN/TAZOB 3.375 GM 3.375 GM in DEXTROSE 5%-WATER - 50 ML IVPB SCH ×3 (02:18→18:03)
[2021-10-06] MEDS: GABAPENTIN 300 MG CAPSULE PO SCH ×3 (05:52→21:32)
[2021-10-06] MEDS: INSULIN SLIDING SCALE (NOVOLOG) 1 VIAL SQ SCH ×4 (06:05→21:35)
[2021-10-06 09:22] LABS: HEMATOCRIT 31.5 % (35.4-49); HEMOGLOBIN 10.6 GM/dL (11.7-16.9); MCH 30.2 pg (25.7-33.7); MCHC 33.8 g/dl (32.0-35.9); MEAN CELL VOLUME 89.4 fl (80-96); MEAN PLT VOLUME 8.6 fl (7.5-11.1); PLATELET COUNT 258 10^3/uL (134-434); RBC 3.52 M/mm3 (4.00-5.60); RDW 14.4 % (11.9-15.9); WHITE BLOOD COUNT 8.5 K/mm3 (4.0-10.0)
[2021-10-06] MEDS: METOPROLOL TARTRATE 25 MG TABLET (FP) PO SCH ×2 (09:57→21:33)
[2021-10-06] MEDS: FUROSEMIDE 20 MG TABLET (FP) PO SCH (09:57)
[2021-10-06] MEDS: APIXABAN 5 MG TABLET PO SCH ×2 (09:57→21:34)
[2021-10-06] MEDS: PANTOPRAZOLE 40 MG TABLET PO SCH (09:58)
[2021-10-06] MEDS: CLOPIDOGREL BISULFATE 75 MG TABLET (FP) PO SCH (09:58)
[2021-10-06] MEDS: COLLAGENASE CLOSTRIDIUM HIST. 30 GRAMS TUBE TP SCH (10:00)
[2021-10-06] MEDS: BUDESONIDE/FORMETEROL FUMARATE 160/4.5 mcg INHALER IH SCH ×2 (10:00→21:35)
[2021-10-06 10:25] LABS: BLOOD UREA NITROGEN 27.5 mg/dL (7-18); CALCIUM 9.1 mg/dL (8.5-10.1)
[2021-10-06 10:26] LABS: CREATININE 1.1 mg/dL (0.55-1.3)
[2021-10-06 12:30] LABS: PHOSPHOROUS 3.6 mg/dL (2.5-4.9)
[2021-10-06] MEDS: LOSARTAN POTASSIUM 50 MG TABLET PO SCH (21:32)
[2021-10-07] MEDS ORDERED: PIPERACILLIN/TAZOBACTAM 3.375 GM VIAL IVPB ONE ×4 (02:07→17:36)
[2021-10-07] MEDS ORDERED: DEXTROSE 5%-WATER - 50 ML IVPB ONE ×3 (02:08→17:37)
[2021-10-07] MEDS: PIPERACILLIN/TAZOB 3.375 GM 3.375 GM in DEXTROSE 5%-WATER - 50 ML IVPB SCH ×3 (02:14→17:49)
[2021-10-07] MEDS: GABAPENTIN 300 MG CAPSULE PO SCH ×3 (05:55→21:35)
[2021-10-07] MEDS: INSULIN SLIDING SCALE (NOVOLOG) 1 VIAL SQ SCH ×4 (06:36→21:36)
[2021-10-07 10:13] LABS: HEMATOCRIT 31.2 % (35.4-49); HEMOGLOBIN 10.7 GM/dL (11.7-16.9); MCH 30.3 pg (25.7-33.7); MCHC 34.2 g/dl (32.0-35.9); MEAN CELL VOLUME 88.4 fl (80-96); MEAN PLT VOLUME 8.3 fl (7.5-11.1); PLATELET COUNT 285 10^3/uL (134-434); RBC 3.53 M/mm3 (4.00-5.60); RDW 14.5 % (11.9-15.9); WHITE BLOOD COUNT 8.1 K/mm3 (4.0-10.0)
[2021-10-07] MEDS: APIXABAN 5 MG TABLET PO SCH ×2 (10:27→21:36)
[2021-10-07] MEDS: PANTOPRAZOLE 40 MG TABLET PO SCH (10:27)
[2021-10-07] MEDS: FUROSEMIDE 20 MG TABLET (FP) PO SCH (10:27)
[2021-10-07] MEDS: METOPROLOL TARTRATE 25 MG TABLET (FP) PO SCH ×2 (10:27→21:35)
[2021-10-07] MEDS: CLOPIDOGREL BISULFATE 75 MG TABLET (FP) PO SCH (10:28)
[2021-10-07] MEDS: COLLAGENASE CLOSTRIDIUM HIST. 30 GRAMS TUBE TP SCH (10:28)
[2021-10-07] MEDS: BUDESONIDE/FORMETEROL FUMARATE 160/4.5 mcg INHALER IH SCH ×2 (10:31→21:36)
[2021-10-07 10:46] LABS: ALBUMIN 3.3 g/dl (3.4-5.0); BLOOD UREA NITROGEN 29.1 mg/dL (7-18)
[2021-10-07 10:47] LABS: CALCIUM 9.3 mg/dL (8.5-10.1); MAGNESIUM 2.2 mg/dL (1.8-2.4)
[2021-10-07 10:50] LABS: CREATININE 1.1 mg/dL (0.55-1.3); PHOSPHOROUS 3.1 mg/dL (2.5-4.9)
[2021-10-07 10:53] LABS: BILIRUBIN,TOTAL 0.4 mg/dL (0.2-1); TOT PROT 7.7 g/dl (6.4-8.2)
[2021-10-07] MEDS: LOSARTAN POTASSIUM 50 MG TABLET PO SCH (21:36)
[2021-10-08] MEDS ORDERED: PIPERACILLIN/TAZOBACTAM 3.375 GM VIAL IVPB ONE ×4 (02:40→18:12)
[2021-10-08] MEDS ORDERED: SODIUM CHLORIDE 50 ML IVPB ONE ×3 (02:40→18:12)
[2021-10-08] MEDS: PIPERACILLIN/TAZOB 3.375 GM 3.375 GM in SODIUM CHLORIDE 50 ML IVPB SCH ×3 (03:11→18:28)
[2021-10-08] MEDS: INSULIN SLIDING SCALE (NOVOLOG) 1 VIAL SQ SCH ×4 (06:43→21:28)
[2021-10-08] MEDS: GABAPENTIN 300 MG CAPSULE PO SCH ×3 (06:43→21:27)
[2021-10-08] MEDS: APIXABAN 5 MG TABLET PO SCH ×2 (10:18→21:27)
[2021-10-08] MEDS: FUROSEMIDE 20 MG TABLET (FP) PO SCH (10:18)
[2021-10-08] MEDS: PANTOPRAZOLE 40 MG TABLET PO SCH (10:18)
[2021-10-08] MEDS: CLOPIDOGREL BISULFATE 75 MG TABLET (FP) PO SCH (10:18)
[2021-10-08] MEDS: METOPROLOL TARTRATE 25 MG TABLET (FP) PO SCH ×2 (10:18→21:27)
[2021-10-08] MEDS: BUDESONIDE/FORMETEROL FUMARATE 160/4.5 mcg INHALER IH SCH ×2 (10:19→21:29)
[2021-10-08 10:41] LABS: HEMATOCRIT 30.3 % (35.4-49); HEMOGLOBIN 10.2 GM/dL (11.7-16.9); MCH 30.1 pg (25.7-33.7); MCHC 33.9 g/dl (32.0-35.9); MEAN PLT VOLUME 7.9 fl (7.5-11.1); PLATELET COUNT 285 10^3/uL (134-434); RDW 14.2 % (11.9-15.9); WHITE BLOOD COUNT 7.2 K/mm3 (4.0-10.0)
[2021-10-08 11:18] LABS: CALCIUM 8.8 mg/dL (8.5-10.1)
[2021-10-08 11:19] LABS: ALBUMIN 3.1 g/dl (3.4-5.0); BLOOD UREA NITROGEN 23.1 mg/dL (7-18)
[2021-10-08 11:21] LABS: MAGNESIUM 2.1 mg/dL (1.8-2.4)
[2021-10-08 11:22] LABS: CREATININE 1.1 mg/dL (0.55-1.3); PHOSPHOROUS 2.6 mg/dL (2.5-4.9)
[2021-10-08 11:23] LABS: BILIRUBIN,TOTAL 0.3 mg/dL (0.2-1); TOT PROT 7.3 g/dl (6.4-8.2)
[2021-10-08] MEDS: LOSARTAN POTASSIUM 50 MG TABLET PO SCH (21:27)
[2021-10-09] MEDS ORDERED: SODIUM CHLORIDE 50 ML IVPB ONE ×3 (01:05→17:06)
[2021-10-09] MEDS ORDERED: PIPERACILLIN/TAZOBACTAM 3.375 GM VIAL IVPB ONE ×3 (01:05→17:06)
[2021-10-09] MEDS ORDERED: ACETAMINOPHEN 325 MG TABLET (FP) PO PRN (01:32)
[2021-10-09] MEDS: PIPERACILLIN/TAZOB 3.375 GM 3.375 GM in SODIUM CHLORIDE 50 ML IVPB SCH ×3 (01:57→18:31)
[2021-10-09] MEDS: INSULIN SLIDING SCALE (NOVOLOG) 1 VIAL SQ SCH ×4 (06:05→22:18)
[2021-10-09] MEDS: GABAPENTIN 300 MG CAPSULE PO SCH ×3 (06:05→22:22)
[2021-10-09 09:38] LABS: HEMATOCRIT 31.5 % (35.4-49); HEMOGLOBIN 10.5 GM/dL (11.7-16.9); MCH 29.5 pg (25.7-33.7); MCHC 33.2 g/dl (32.0-35.9); MEAN CELL VOLUME 88.9 fl (80-96); MEAN PLT VOLUME 8.1 fl (7.5-11.1); PLATELET COUNT 334 10^3/uL (134-434); RBC 3.54 M/mm3 (4.00-5.60); WHITE BLOOD COUNT 7.9 K/mm3 (4.0-10.0)
[2021-10-09] MEDS: APIXABAN 5 MG TABLET PO SCH (09:44)
[2021-10-09] MEDS: METOPROLOL TARTRATE 25 MG TABLET (FP) PO SCH ×2 (09:45→22:22)
[2021-10-09] MEDS: FUROSEMIDE 20 MG TABLET (FP) PO SCH (09:45)
[2021-10-09] MEDS: CLOPIDOGREL BISULFATE 75 MG TABLET (FP) PO SCH (09:45)
[2021-10-09] MEDS: PANTOPRAZOLE 40 MG TABLET PO SCH (09:45)
[2021-10-09] MEDS: BUDESONIDE/FORMETEROL FUMARATE 160/4.5 mcg INHALER IH SCH ×2 (09:50→22:23)
[2021-10-09 09:58] LABS: ALBUMIN 3.2 g/dl (3.4-5.0); BLOOD UREA NITROGEN 21.4 mg/dL (7-18); CALCIUM 9.3 mg/dL (8.5-10.1)
[2021-10-09 09:59] LABS: MAGNESIUM 2.1 mg/dL (1.8-2.4)
[2021-10-09 10:01] LABS: CREATININE 1.1 mg/dL (0.55-1.3); PHOSPHOROUS 2.7 mg/dL (2.5-4.9)
[2021-10-09 10:02] LABS: BILIRUBIN,TOTAL 0.5 mg/dL (0.2-1)
[2021-10-09 10:03] LABS: TOT PROT 7.7 g/dl (6.4-8.2)
[2021-10-09] MEDS: MINERAL OIL/PET HY-PHL TOPICAL OINTMENT 454 GM JAR TP SCH (18:29)
[2021-10-09] MEDS: LOSARTAN POTASSIUM 50 MG TABLET PO SCH (22:22)
[2021-10-10] MEDS: PIPERACILLIN/TAZOB 3.375 GM 3.375 GM in SODIUM CHLORIDE 50 ML IVPB SCH ×3 (02:50→18:58)
[2021-10-10] MEDS ORDERED: PIPERACILLIN/TAZOBACTAM 3.375 GM VIAL IVPB ONE ×3 (03:00→16:44)
[2021-10-10] MEDS ORDERED: SODIUM CHLORIDE 50 ML IVPB ONE ×3 (03:00→16:45)
[2021-10-10] MEDS: GABAPENTIN 300 MG CAPSULE PO SCH ×3 (06:36→22:30)
[2021-10-10] MEDS: INSULIN SLIDING SCALE (NOVOLOG) 1 VIAL SQ SCH ×4 (06:40→22:31)
[2021-10-10] MEDS ORDERED: INSULIN (NOVOLOG) ASPART 100 UNITS/ML 10ML VIAL ONE (07:00)
[2021-10-10 09:30] LABS: HEMATOCRIT 31.6 % (35.4-49); HEMOGLOBIN 10.6 GM/dL (11.7-16.9); MCH 29.5 pg (25.7-33.7); MCHC 33.5 g/dl (32.0-35.9); MEAN CELL VOLUME 88.1 fl (80-96); MEAN PLT VOLUME 8.2 fl (7.5-11.1); PLATELET COUNT 335 10^3/uL (134-434); RBC 3.59 M/mm3 (4.00-5.60); RDW 14.3 % (11.9-15.9); WHITE BLOOD COUNT 7.3 K/mm3 (4.0-10.0)
[2021-10-10 09:41] LABS: INR 1.2 (0.83-1.09); PROTHROMBIN TIME (PATIENT) 13.8 SEC (9.7-13.0)
[2021-10-10 10:06] LABS: CALCIUM 9.7 mg/dL (8.5-10.1)
[2021-10-10 10:07] LABS: ALBUMIN 3.1 g/dl (3.4-5.0); BLOOD UREA NITROGEN 22.9 mg/dL (7-18); MAGNESIUM 2.2 mg/dL (1.8-2.4)
[2021-10-10] MEDS: FUROSEMIDE 20 MG TABLET (FP) PO SCH (10:08)
[2021-10-10] MEDS: PANTOPRAZOLE 40 MG TABLET PO SCH (10:08)
[2021-10-10] MEDS: METOPROLOL TARTRATE 25 MG TABLET (FP) PO SCH ×2 (10:09→22:30)
[2021-10-10 10:10] LABS: CREATININE 1.1 mg/dL (0.55-1.3); PHOSPHOROUS 3.1 mg/dL (2.5-4.9)
[2021-10-10] MEDS: MINERAL OIL/PET HY-PHL TOPICAL OINTMENT 454 GM JAR TP SCH (10:10)
[2021-10-10] MEDS: BUDESONIDE/FORMETEROL FUMARATE 160/4.5 mcg INHALER IH SCH ×2 (10:10→22:35)
[2021-10-10 10:11] LABS: BILIRUBIN,TOTAL 0.3 mg/dL (0.2-1); TOT PROT 7.4 g/dl (6.4-8.2)
[2021-10-10] MEDS: LOSARTAN POTASSIUM 50 MG TABLET PO SCH (22:30)
[2021-10-11] MEDS ORDERED: PIPERACILLIN/TAZOBACTAM 3.375 GM VIAL IVPB ONE ×3 (01:31→17:18)
[2021-10-11] MEDS: PIPERACILLIN/TAZOB 3.375 GM 3.375 GM in SODIUM CHLORIDE 50 ML IVPB SCH ×3 (01:42→17:46)
[2021-10-11] MEDS: INSULIN SLIDING SCALE (NOVOLOG) 1 VIAL SQ SCH ×5 (06:14→21:50)
[2021-10-11] MEDS: GABAPENTIN 300 MG CAPSULE PO SCH ×4 (06:14→21:50)
[2021-10-11 08:42] LABS: INR 1.15 (0.83-1.09); PROTHROMBIN TIME (PATIENT) 13.2 SEC (9.7-13.0)
[2021-10-11 08:45] LABS: ACTIVATED PTT 35.4 SECONDS (25.2-36.5); BASO % 1.5 % (0-2.0); HEMATOCRIT 32.5 % (35.4-49); HEMOGLOBIN 10.9 GM/dL (11.7-16.9); LYMPH % 26.4 % (8-40); MCH 29.6 pg (25.7-33.7); MCHC 33.7 g/dl (32.0-35.9); MEAN CELL VOLUME 87.8 fl (80-96); MEAN PLT VOLUME 8.1 fl (7.5-11.1); MONO % 8.1 % (3.8-10.2); PLATELET COUNT 363 10^3/uL (134-434); RBC 3.69 M/mm3 (4.00-5.60); RDW 14.4 % (11.9-15.9); WHITE BLOOD COUNT 8.9 K/mm3 (4.0-10.0)
[2021-10-11 09:06] LABS: BLOOD UREA NITROGEN 22.6 mg/dL (7-18); MAGNESIUM 2.1 mg/dL (1.8-2.4)
[2021-10-11 09:09] LABS: CREATININE 1.1 mg/dL (0.55-1.3); PHOSPHOROUS 3.3 mg/dL (2.5-4.9)
[2021-10-11] MEDS ORDERED: SODIUM CHLORIDE 50 ML IVPB ONE ×2 (09:24→17:18)
[2021-10-11] MEDS: BUDESONIDE/FORMETEROL FUMARATE 160/4.5 mcg INHALER IH SCH ×2 (09:27→21:55)
[2021-10-11] MEDS: MINERAL OIL/PET HY-PHL TOPICAL OINTMENT 454 GM JAR TP SCH (09:27)
[2021-10-11] MEDS: METOPROLOL TARTRATE 25 MG TABLET (FP) PO SCH ×2 (09:28→21:49)
[2021-10-11] MEDS: FUROSEMIDE 20 MG TABLET (FP) PO SCH (09:28)
[2021-10-11] MEDS: PANTOPRAZOLE 40 MG TABLET PO SCH (09:28)
[2021-10-11] MEDS ORDERED: MIDAZOLAM HCL 2 MG/2 ML SINGLE DOSE VIAL ONE (14:41)
[2021-10-11] MEDS: LOSARTAN POTASSIUM 50 MG TABLET PO SCH (21:49)
[2021-10-12] MEDS ORDERED: PIPERACILLIN/TAZOBACTAM 3.375 GM VIAL IVPB ONE ×4 (02:50→17:09)
[2021-10-12] MEDS ORDERED: SODIUM CHLORIDE 50 ML IVPB ONE ×4 (02:50→17:09)
[2021-10-12] MEDS: PIPERACILLIN/TAZOB 3.375 GM 3.375 GM in SODIUM CHLORIDE 50 ML IVPB SCH ×3 (03:02→18:51)
[2021-10-12] MEDS: GABAPENTIN 300 MG CAPSULE PO SCH ×3 (07:51→21:46)
[2021-10-12] MEDS: INSULIN SLIDING SCALE (NOVOLOG) 1 VIAL SQ SCH ×4 (07:52→21:46)
[2021-10-12] MEDS: METOPROLOL TARTRATE 25 MG TABLET (FP) PO SCH ×2 (09:09→21:46)
[2021-10-12] MEDS: FUROSEMIDE 20 MG TABLET (FP) PO SCH (09:41)
[2021-10-12] MEDS: MINERAL OIL/PET HY-PHL TOPICAL OINTMENT 454 GM JAR TP SCH (09:41)
[2021-10-12] MEDS: PANTOPRAZOLE 40 MG TABLET PO SCH (09:42)
[2021-10-12] MEDS: BUDESONIDE/FORMETEROL FUMARATE 160/4.5 mcg INHALER IH SCH ×2 (09:42→21:47)
[2021-10-12] MEDS ORDERED: BUPIVACAINE HCL/PF 0.5% (5MG/ML) 10 ML VIAL ONE (10:12)
[2021-10-12] MEDS ORDERED: LIDOCAINE HCL 1%, 10 MG/ML (20ML VIAL) ONE (10:12)
[2021-10-12] MEDS ORDERED: VANCOMYCIN 1,000 MG VIAL (RESTRICTED TO ID ONLY) ONE (10:19)
[2021-10-12 10:22] LABS: BASO % 1.6 % (0-2.0); HEMATOCRIT 31.6 % (35.4-49); HEMOGLOBIN 10.9 GM/dL (11.7-16.9); MCHC 34.4 g/dl (32.0-35.9); MEAN CELL VOLUME 87.2 fl (80-96); MEAN PLT VOLUME 7.9 fl (7.5-11.1); MONO % 8.5 % (3.8-10.2); NEUT % 52.9 % (42.8-82.8); PLATELET COUNT 331 10^3/uL (134-434); RBC 3.63 M/mm3 (4.00-5.60); RDW 14.2 % (11.9-15.9); WHITE BLOOD COUNT 7.5 K/mm3 (4.0-10.0)
[2021-10-12 10:40] LABS: CALCIUM 9.5 mg/dL (8.5-10.1)
[2021-10-12 10:41] LABS: MAGNESIUM 2.2 mg/dL (1.8-2.4)
[2021-10-12 10:44] LABS: CREATININE 1.1 mg/dL (0.55-1.3); PHOSPHOROUS 3.2 mg/dL (2.5-4.9)
[2021-10-12] MEDS ORDERED: LIDOCAINE HCL 1%, 10 MG/ML (20ML VIAL) INF ONE (11:04)
[2021-10-12] MEDS ORDERED: BUPIVACAINE HCL/PF 0.5% (5MG/ML) 10 ML VIAL IJ ONE (11:06)
[2021-10-12 11:31] LABS: ERYTHROCYTE SEDIMENTATION RATE 95 mm/hr (0-20)
[2021-10-12] MEDS ORDERED: ACETAMINOPHEN 325 MG TABLET (FP) PO PRN (11:41)
[2021-10-12 12:37] LABS: BASO % 1.8 % (0-2.0); EOS % 7.2 % (0-4.5); HEMATOCRIT 31.7 % (35.4-49); HEMOGLOBIN 10.9 GM/dL (11.7-16.9); LYMPH % 31.8 % (8-40); MCH 30.1 pg (25.7-33.7); MCHC 34.2 g/dl (32.0-35.9); MEAN PLT VOLUME 7.7 fl (7.5-11.1); MONO % 7.4 % (3.8-10.2); NEUT % 51.8 % (42.8-82.8); PLATELET COUNT 352 10^3/uL (134-434); RDW 14.4 % (11.9-15.9); WHITE BLOOD COUNT 7.6 K/mm3 (4.0-10.0)
[2021-10-12] MEDS ORDERED: ONDANSETRON 4 MG/2 ML VIAL IVPUSH PRN (12:41)
[2021-10-12] MEDS: LACTATED RINGERS SOLUTION 1,000 ML IV SCH (13:50)
[2021-10-12] MEDS: LOSARTAN POTASSIUM 50 MG TABLET PO SCH (21:46)
[2021-10-13] MEDS ORDERED: SODIUM CHLORIDE 50 ML IVPB ONE ×3 (01:47→16:35)
[2021-10-13] MEDS ORDERED: PIPERACILLIN/TAZOBACTAM 3.375 GM VIAL IVPB ONE ×3 (01:47→16:34)
[2021-10-13] MEDS: PIPERACILLIN/TAZOB 3.375 GM 3.375 GM in SODIUM CHLORIDE 50 ML IVPB SCH ×3 (02:26→18:37)
[2021-10-13] MEDS: LACTATED RINGERS SOLUTION 1,000 ML IV SCH ×2 (06:44→14:42)
[2021-10-13] MEDS: GABAPENTIN 300 MG CAPSULE PO SCH ×3 (06:44→21:22)
[2021-10-13] MEDS: INSULIN SLIDING SCALE (NOVOLOG) 1 VIAL SQ SCH ×4 (06:44→21:22)
[2021-10-13] MEDS: sitaGLIPtin PHOSPHATE 50 MG TABLET PO SCH (06:44)
[2021-10-13 09:41] LABS: HEMATOCRIT 32.2 % (35.4-49); HEMOGLOBIN 10.7 GM/dL (11.7-16.9); MCH 29.6 pg (25.7-33.7); MCHC 33.3 g/dl (32.0-35.9); MEAN PLT VOLUME 8.3 fl (7.5-11.1); PLATELET COUNT 333 10^3/uL (134-434); RBC 3.62 M/mm3 (4.00-5.60); RDW 14.1 % (11.9-15.9); WHITE BLOOD COUNT 9.1 K/mm3 (4.0-10.0)
[2021-10-13] MEDS: METOPROLOL TARTRATE 25 MG TABLET (FP) PO SCH ×2 (09:55→21:22)
[2021-10-13] MEDS: FUROSEMIDE 20 MG TABLET (FP) PO SCH (09:55)
[2021-10-13] MEDS: PANTOPRAZOLE 40 MG TABLET PO SCH (09:55)
[2021-10-13 09:56] LABS: BLOOD UREA NITROGEN 23.6 mg/dL (7-18); CALCIUM 9.8 mg/dL (8.5-10.1)
[2021-10-13 09:57] LABS: MAGNESIUM 2.1 mg/dL (1.8-2.4)
[2021-10-13 09:59] LABS: CREATININE 1.1 mg/dL (0.55-1.3); PHOSPHOROUS 3.2 mg/dL (2.5-4.9)
[2021-10-13] MEDS: APIXABAN 5 MG TABLET PO SCH ×2 (11:01→21:22)
[2021-10-13] MEDS: BUDESONIDE/FORMETEROL FUMARATE 160/4.5 mcg INHALER IH SCH ×2 (11:03→21:23)
[2021-10-13] MEDS: MINERAL OIL/PET HY-PHL TOPICAL OINTMENT 454 GM JAR TP SCH (11:04)
[2021-10-13] MEDS: LOSARTAN POTASSIUM 50 MG TABLET PO SCH (21:22)
[2021-10-13] MEDS ORDERED: ATORVASTATIN CA 80 MG TABLET (FP) PO SCH (22:00)
[2021-10-14] MEDS ORDERED: PIPERACILLIN/TAZOBACTAM 3.375 GM VIAL IVPB ONE ×3 (01:28→16:55)
[2021-10-14] MEDS ORDERED: SODIUM CHLORIDE 50 ML IVPB ONE ×3 (01:29→16:56)
[2021-10-14] MEDS: PIPERACILLIN/TAZOB 3.375 GM 3.375 GM in SODIUM CHLORIDE 50 ML IVPB SCH ×3 (02:03→17:54)
[2021-10-14] MEDS: LACTATED RINGERS SOLUTION 1,000 ML IV SCH (02:18)
[2021-10-14] MEDS: sitaGLIPtin PHOSPHATE 50 MG TABLET PO SCH (06:25)
[2021-10-14] MEDS: GABAPENTIN 300 MG CAPSULE PO SCH ×2 (06:25→13:41)
[2021-10-14] MEDS: INSULIN SLIDING SCALE (NOVOLOG) 1 VIAL SQ SCH ×3 (06:25→17:06)
[2021-10-14 08:49] VITALS: TEMP 98.1
[2021-10-14 09:09] LABS: HEMATOCRIT 31.9 % (35.4-49); HEMOGLOBIN 10.7 GM/dL (11.7-16.9); MCH 29.7 pg (25.7-33.7); MCHC 33.6 g/dl (32.0-35.9); MEAN CELL VOLUME 88.3 fl (80-96); MEAN PLT VOLUME 8.1 fl (7.5-11.1); PLATELET COUNT 304 10^3/uL (134-434); RBC 3.61 M/mm3 (4.00-5.60); RDW 14.2 % (11.9-15.9); WHITE BLOOD COUNT 10.1 K/mm3 (4.0-10.0)
[2021-10-14 09:32] LABS: BLOOD UREA NITROGEN 25.1 mg/dL (7-18); CALCIUM 9.5 mg/dL (8.5-10.1)
[2021-10-14 09:35] LABS: CREATININE 1.3 mg/dL (0.55-1.3)
[2021-10-14] MEDS: PANTOPRAZOLE 40 MG TABLET PO SCH (09:51)
[2021-10-14] MEDS: APIXABAN 5 MG TABLET PO SCH (09:51)
[2021-10-14] MEDS: METOPROLOL TARTRATE 25 MG TABLET (FP) PO SCH (09:51)
[2021-10-14] MEDS: MINERAL OIL/PET HY-PHL TOPICAL OINTMENT 454 GM JAR TP SCH (09:52)
[2021-10-14] MEDS: FUROSEMIDE 20 MG TABLET (FP) PO SCH (09:52)
[2021-10-14] MEDS: BUDESONIDE/FORMETEROL FUMARATE 160/4.5 mcg INHALER IH SCH (09:52)
[2021-10-14] MEDS ORDERED: ALLOPURINOL 300 MG TABLET (FP) PO SCH (10:00)
[2021-10-14 17:47] VITALS: BP 153/64; PULSE 71; RESP 18
== END 2021-10-14 18:50 | disposition home health service (06) | DRG 617 ==
LOC: JER 12:06 → JERBED 17:31 → J8W 10-04 09:45
PROVIDERS: ADMIT Internal Medicine; ATTEND Internal Medicine
PROC: 0Y6R0Z0 Detachment at Right 2nd Toe, Complete, Open Approach (ICD-10-PCS; principal; 2021-10-12 10:00)
DX: E11.69 Type 2 diabetes mellitus with other specified complication (principal); E11.52 Type 2 diabetes mellitus with diabetic peripheral angiopathy with gangrene; L03.115 Cellulitis of right lower limb; L97.518 Non-pressure chronic ulcer of other part of right foot with other specified severity; M86.171 Other acute osteomyelitis, right ankle and foot; I25.10 Atherosclerotic heart disease of native coronary artery without angina pectoris; B96.5 Pseudomonas (aeruginosa) (mallei) (pseudomallei) as the cause of diseases classified elsewhere; B95.7 Other staphylococcus as the cause of diseases classified elsewhere; E11.621 Type 2 diabetes mellitus with foot ulcer; I10 Essential (primary) hypertension; E78.5 Hyperlipidemia, unspecified; E11.40 Type 2 diabetes mellitus with diabetic neuropathy, unspecified; I48.0 Paroxysmal atrial fibrillation; M10.9 Gout, unspecified; Z89.421 Acquired absence of other right toe(s); Z86.73 Personal history of transient ischemic attack (TIA), and cerebral infarction without residual deficits; Z95.5 Presence of coronary angioplasty implant and graft
CPT/HCPCS: 36415; 73630-TC-RT-FY; 73718-TC-RT; 80048; 80053; 82962; 83735; 84100; 85025; 85027; 85610; 85651; 85730; 86140; 87040; 87070; 87186; 87205; 88305-TC; 88311-TC; 93926-TC; 94760; 97116-GP; 97161-GP; 99285-25; C9803-CS; U0003; U0005

== ENCOUNTER 2022-03-20 13:51 | Inpatient (IN) | payer OTHER ==
[2022-03-20 14:10] VITALS: BMI 36.0
[2022-03-20] MEDS ORDERED: PIPERACILLIN/TAZOB 4.5 GM 4.5 GM in DEXTROSE 5%-WATER 100 ML IVPB ONE (15:45)
[2022-03-20] MEDS ORDERED: VANCOMYCIN 1 GM in D5W (PRE-DOCKED) 1,000 MG/250 ML IVPB ONE (15:45)
[2022-03-20] MEDS ORDERED: PIPERACILLIN/TAZOB 4.5 GM 4.5 GM/100 ML BAG IVPB ONE (16:06)
[2022-03-20] MEDS ORDERED: VANCOMYCIN/WATER FOR INJ (PEG) 1,000 MG/200 ML BAG IVPB ONE (16:06)
[2022-03-20 16:17] LABS: BASO % 1.3 % (0-2.0); EOS % 5.1 % (0-4.5); HEMATOCRIT 32.6 % (35.4-49); HEMOGLOBIN 10.7 GM/dL (11.7-16.9); LYMPH % 29.1 % (8-40); MCH 29.4 pg (25.7-33.7); MCHC 32.9 g/dl (32.0-35.9); MEAN CELL VOLUME 89.3 fl (80-96); MEAN PLT VOLUME 8.9 fl (7.5-11.1); MONO % 8.2 % (3.8-10.2); NEUT % 56.3 % (42.8-82.8); PLATELET COUNT 290 10^3/uL (134-434); RBC 3.65 M/mm3 (4.00-5.60); RDW 15.5 % (11.9-15.9); WHITE BLOOD COUNT 9.5 K/mm3 (4.0-10.0)
[2022-03-20 16:38] LABS: CALCIUM 10.6 mg/dL (8.5-10.1)
[2022-03-20 16:39] LABS: ALBUMIN 3.5 g/dl (3.4-5.0); BLOOD UREA NITROGEN 29.5 mg/dL (7-18); MAGNESIUM 1.7 mg/dL (1.8-2.4)
[2022-03-20 16:42] LABS: CREATININE 1.1 mg/dL (0.55-1.3)
[2022-03-20 16:43] LABS: BILIRUBIN,TOTAL 0.3 mg/dL (0.2-1); TOT PROT 7.6 g/dl (6.4-8.2)
[2022-03-20] MEDS ORDERED: ACETAMINOPHEN 325 MG TABLET (FP) PO PRN (18:15)
[2022-03-20] MEDS: LOSARTAN POTASSIUM 50 MG TABLET PO SCH (22:52)
[2022-03-20] MEDS: INSULIN SLIDING SCALE (NOVOLOG) 1 VIAL SQ SCH (22:53)
[2022-03-20] MEDS: ATORVASTATIN CA 80 MG TABLET (FP) PO SCH (22:53)
[2022-03-20] MEDS: METOPROLOL TARTRATE 25 MG TABLET (FP) PO SCH (22:53)
[2022-03-20] MEDS: GABAPENTIN 300 MG CAPSULE PO SCH (22:53)
[2022-03-20] MEDS: AMMONIUM LACTATE 12% LOTION 225 GM BOTTLE TP SCH (22:53)
[2022-03-20] MEDS: BUDESONIDE/FORMETEROL FUMARATE 160/4.5 mcg INHALER IH SCH (22:54)
[2022-03-21] MEDS: GABAPENTIN 300 MG CAPSULE PO SCH ×3 (06:56→21:54)
[2022-03-21] MEDS: INSULIN SLIDING SCALE (NOVOLOG) 1 VIAL SQ SCH ×4 (06:57→21:54)
[2022-03-21] MEDS ORDERED: MAGNESIUM SULF 50% (8.12 MEQ/2 ML-1 GM VIAL) IVPB ONE (08:15)
[2022-03-21] MEDS ORDERED: ALLOPURINOL 300 MG TABLET (FP) PO SCH (10:00)
[2022-03-21] MEDS ORDERED: VANCOMYCIN 1 GM in D5W (PRE-DOCKED) 1,000 MG/250 ML IVPB SCH (10:00)
[2022-03-21] MEDS ORDERED: FUROSEMIDE 20 MG TABLET (FP) PO SCH (10:00)
[2022-03-21] MEDS ORDERED: VANCOMYCIN 1 GM/200 ML PREMIX BAG (RESTRICTED TO ID ONLY) IVPB SCH (10:00)
[2022-03-21] MEDS ORDERED: PIPERACILLIN/TAZOB 3.375 GM 3.375 GM in DEXTROSE 5%-WATER - 50 ML IVPB SCH (10:00)
[2022-03-21] MEDS: METOPROLOL TARTRATE 25 MG TABLET (FP) PO SCH ×2 (10:05→21:54)
[2022-03-21] MEDS: PANTOPRAZOLE 40 MG TABLET PO SCH (10:05)
[2022-03-21] MEDS: BUDESONIDE/FORMETEROL FUMARATE 160/4.5 mcg INHALER IH SCH ×2 (10:06→21:54)
[2022-03-21] MEDS: AMMONIUM LACTATE 12% LOTION 225 GM BOTTLE TP SCH ×2 (10:06→21:53)
[2022-03-21] MEDS: MINERAL OIL/PET HY-PHL TOPICAL OINTMENT 454 GM JAR TP SCH (10:06)
[2022-03-21] MEDS ORDERED: CEFTRIAXONE 1 GM in DEXTROSE 5%-WATER - 50 ML IVPB SCH (11:45)
[2022-03-21 11:53] LABS: BLOOD UREA NITROGEN 23.3 mg/dL (7-18); CALCIUM 10.1 mg/dL (8.5-10.1); MAGNESIUM 2.3 mg/dL (1.8-2.4)
[2022-03-21 11:56] LABS: CREATININE 1.1 mg/dL (0.55-1.3)
[2022-03-21] MEDS: CEFTRIAXONE 1 GM in DEXTROSE 5%-WATER - 50 ML IVPB SCH (18:11)
[2022-03-21] MEDS: TICAGRELOR 90 MG TABLET PO SCH (21:53)
[2022-03-21] MEDS: LOSARTAN POTASSIUM 50 MG TABLET PO SCH (21:53)
[2022-03-21] MEDS: ATORVASTATIN CA 80 MG TABLET (FP) PO SCH (21:54)
[2022-03-22] MEDS ORDERED: PATIENT'S OWN MEDICATION (NON-FORMULARY) (Dulaglutide [Trulicity] 0.75 MG/0.5 ML Pen.Injct SQ SCH (07:00)
[2022-03-22] MEDS: GABAPENTIN 300 MG CAPSULE PO SCH ×3 (07:55→22:17)
[2022-03-22] MEDS: INSULIN SLIDING SCALE (NOVOLOG) 1 VIAL SQ SCH ×4 (07:55→22:16)
[2022-03-22] MEDS: TICAGRELOR 90 MG TABLET PO SCH (10:56)
[2022-03-22] MEDS: ASPIRIN COATED 81 MG TABLET.EC PO SCH (10:56)
[2022-03-22] MEDS: MINERAL OIL/PET HY-PHL TOPICAL OINTMENT 454 GM JAR TP SCH (10:56)
[2022-03-22] MEDS: METOPROLOL TARTRATE 25 MG TABLET (FP) PO SCH ×2 (10:56→22:17)
[2022-03-22] MEDS: AMMONIUM LACTATE 12% LOTION 225 GM BOTTLE TP SCH ×2 (10:56→22:15)
[2022-03-22] MEDS: TIOTROPIUM BROMIDE 2.5 MCG (SPIRIVA) RESPIMAT INHALER IH SCH (10:57)
[2022-03-22] MEDS: PANTOPRAZOLE 40 MG TABLET PO SCH (10:57)
[2022-03-22] MEDS: EZETIMIBE 10 MG TABLET (FP) PO SCH (11:00)
[2022-03-22] MEDS: BUDESONIDE/FORMETEROL FUMARATE 160/4.5 mcg INHALER IH SCH ×2 (11:00→22:16)
[2022-03-22] MEDS: CEFTRIAXONE 1 GM in DEXTROSE 5%-WATER - 50 ML IVPB SCH (11:00)
[2022-03-22 12:03] LABS: HEMATOCRIT 29.6 % (35.4-49); HEMOGLOBIN 9.7 GM/dL (11.7-16.9); MCH 29.2 pg (25.7-33.7); MCHC 32.9 g/dl (32.0-35.9); MEAN CELL VOLUME 88.8 fl (80-96); MEAN PLT VOLUME 8.8 fl (7.5-11.1); PLATELET COUNT 242 10^3/uL (134-434); RBC 3.33 M/mm3 (4.00-5.60); RDW 15.3 % (11.9-15.9); WHITE BLOOD COUNT 6.5 K/mm3 (4.0-10.0)
[2022-03-22 12:32] LABS: BLOOD UREA NITROGEN 22.6 mg/dL (7-18); CALCIUM 9.3 mg/dL (8.5-10.1)
[2022-03-22 12:35] LABS: CREATININE 1.1 mg/dL (0.55-1.3)
[2022-03-22 12:37] LABS: BILIRUBIN,TOTAL 0.3 mg/dL (0.2-1); TOT PROT 6.8 g/dl (6.4-8.2)
[2022-03-22] MEDS: LOSARTAN POTASSIUM 50 MG TABLET PO SCH (22:15)
[2022-03-22] MEDS: INSULIN (LEVEMIR) 100 UNITS/ML UNITS SQ SCH (22:15)
[2022-03-22] MEDS: ATORVASTATIN CA 80 MG TABLET (FP) PO SCH (22:15)
[2022-03-23] MEDS: INSULIN SLIDING SCALE (NOVOLOG) 1 VIAL SQ SCH ×4 (07:37→22:26)
[2022-03-23] MEDS: GABAPENTIN 300 MG CAPSULE PO SCH ×3 (07:37→22:29)
[2022-03-23 10:03] LABS: HEMATOCRIT 34.6 % (35.4-49); HEMOGLOBIN 11.2 GM/dL (11.7-16.9); MCHC 32.4 g/dl (32.0-35.9); MEAN CELL VOLUME 89.4 fl (80-96); MEAN PLT VOLUME 8.6 fl (7.5-11.1); PLATELET COUNT 262 10^3/uL (134-434); RBC 3.87 M/mm3 (4.00-5.60); RDW 15.3 % (11.9-15.9); WHITE BLOOD COUNT 8.9 K/mm3 (4.0-10.0)
[2022-03-23] MEDS: MINERAL OIL/PET HY-PHL TOPICAL OINTMENT 454 GM JAR TP SCH (10:27)
[2022-03-23] MEDS: METOPROLOL TARTRATE 25 MG TABLET (FP) PO SCH ×2 (10:27→22:30)
[2022-03-23] MEDS: ASPIRIN COATED 81 MG TABLET.EC PO SCH (10:27)
[2022-03-23] MEDS: AMMONIUM LACTATE 12% LOTION 225 GM BOTTLE TP SCH ×2 (10:27→22:34)
[2022-03-23] MEDS: PANTOPRAZOLE 40 MG TABLET PO SCH (10:28)
[2022-03-23] MEDS: CEFTRIAXONE 1 GM in DEXTROSE 5%-WATER - 50 ML IVPB SCH (10:28)
[2022-03-23] MEDS: EZETIMIBE 10 MG TABLET (FP) PO SCH (10:28)
[2022-03-23] MEDS: TIOTROPIUM BROMIDE 2.5 MCG (SPIRIVA) RESPIMAT INHALER IH SCH (10:28)
[2022-03-23] MEDS: BUDESONIDE/FORMETEROL FUMARATE 160/4.5 mcg INHALER IH SCH ×2 (10:28→22:34)
[2022-03-23] MEDS: AMOX TR/POT CLAV 500MG/125MG TABLETS (FP) PO SCH (17:20)
[2022-03-23] MEDS: ATORVASTATIN CA 80 MG TABLET (FP) PO SCH (22:29)
[2022-03-23] MEDS: LOSARTAN POTASSIUM 50 MG TABLET PO SCH (22:29)
[2022-03-23] MEDS: INSULIN (LEVEMIR) 100 UNITS/ML UNITS SQ SCH (22:29)
[2022-03-24] MEDS: GABAPENTIN 300 MG CAPSULE PO SCH ×3 (06:53→22:07)
[2022-03-24] MEDS: INSULIN SLIDING SCALE (NOVOLOG) 1 VIAL SQ SCH ×2 (06:57→11:22)
[2022-03-24] MEDS ORDERED: ONDANSETRON 4 MG/2 ML VIAL IVPUSH PRN ×2 (08:50→11:16)
[2022-03-24] MEDS ORDERED: FENTANYL CITRATE/PF 50 MCG/ML VIAL IVPUSH PRN ×2 (08:50→11:16)
[2022-03-24] MEDS ORDERED: PROMETHAZINE HCL 25 MG/1 ML VIAL IVPUSH PRN ×2 (08:50→11:16)
[2022-03-24] MEDS ORDERED: LACTATED RINGERS SOLUTION 1,000 ML IV SCH (09:00)
[2022-03-24] MEDS: BUDESONIDE/FORMETEROL FUMARATE 160/4.5 mcg INHALER IH SCH ×2 (09:00→22:06)
[2022-03-24] MEDS ORDERED: GENTAMICIN SO4 80 MG/2 ML VIAL ONE (09:03)
[2022-03-24] MEDS ORDERED: LIDOCAINE HCL 1%, 10 MG/ML (20ML VIAL) ONE (09:03)
[2022-03-24] MEDS ORDERED: BUPIVACAINE HCL/PF 0.5% (5MG/ML) 10 ML VIAL ONE (09:04)
[2022-03-24] MEDS ORDERED: DEXAMETHASONE SOD PHOSPHATE 4 MG/1 ML VIAL ONE (09:04)
[2022-03-24] MEDS ORDERED: LIDOCAINE HCL 1%, 10 MG/ML (50 mL VIAL) NR ONE ×2 (09:08→10:30)
[2022-03-24] MEDS ORDERED: ceFAZolin SODIUM 1 GM VIAL IVPB ONE ×2 (09:08→10:27)
[2022-03-24] MEDS ORDERED: BUPIVACAINE HCL/PF 0.5% (5 MG/ML) 30 ML VIAL IJ ONE ×4 (09:09→11:02)
[2022-03-24] MEDS ORDERED: DEXAMETHASONE SOD PHOSPHATE 4 MG/1 ML VIAL IVPUSH ONE ×2 (09:10→11:02)
[2022-03-24] MEDS: EZETIMIBE 10 MG TABLET (FP) PO SCH (09:42)
[2022-03-24] MEDS: AMOX TR/POT CLAV 500MG/125MG TABLETS (FP) PO SCH ×2 (09:42→17:22)
[2022-03-24] MEDS: AMMONIUM LACTATE 12% LOTION 225 GM BOTTLE TP SCH (09:42)
[2022-03-24] MEDS: PANTOPRAZOLE 40 MG TABLET PO SCH (09:42)
[2022-03-24] MEDS: METOPROLOL TARTRATE 25 MG TABLET (FP) PO SCH ×2 (09:42→22:07)
[2022-03-24] MEDS: TIOTROPIUM BROMIDE 2.5 MCG (SPIRIVA) RESPIMAT INHALER IH SCH (09:43)
[2022-03-24] MEDS: ASPIRIN COATED 81 MG TABLET.EC PO SCH (09:43)
[2022-03-24] MEDS: MINERAL OIL/PET HY-PHL TOPICAL OINTMENT 454 GM JAR TP SCH (09:43)
[2022-03-24] MEDS ORDERED: MIDAZOLAM HCL 2 MG/2 ML SINGLE DOSE VIAL ONE (10:12)
[2022-03-24] MEDS ORDERED: ceFAZolin SODIUM 1 GM VIAL ONE (10:26)
[2022-03-24] MEDS ORDERED: GENTAMICIN SO4 80 MG/2 ML VIAL IVPB ONE ×2 (10:46→10:52)
[2022-03-24] MEDS ORDERED: ACETAMINOPHEN 325 MG TABLET (FP) PO PRN (11:16)
[2022-03-24] MEDS: LACTATED RINGERS SOLUTION 1,000 ML IV SCH ×2 (12:15→15:18)
[2022-03-24 12:23] LABS: EOS % 4.7 % (0-4.5); HEMATOCRIT 35.3 % (35.4-49); HEMOGLOBIN 11.4 GM/dL (11.7-16.9); LYMPH % 29.5 % (8-40); MCH 28.7 pg (25.7-33.7); MCHC 32.2 g/dl (32.0-35.9); MEAN CELL VOLUME 89.1 fl (80-96); MEAN PLT VOLUME 8.4 fl (7.5-11.1); MONO % 7.8 % (3.8-10.2); PLATELET COUNT 215 10^3/uL (134-434); RBC 3.96 M/mm3 (4.00-5.60); RDW 15.1 % (11.9-15.9); WHITE BLOOD COUNT 8.2 K/mm3 (4.0-10.0)
[2022-03-24] MEDS ORDERED: oxyCODONE HCL 5 MG TABLET PO PRN (12:34)
[2022-03-24] MEDS: ATORVASTATIN CA 80 MG TABLET (FP) PO SCH (22:07)
[2022-03-24] MEDS: LOSARTAN POTASSIUM 50 MG TABLET PO SCH (22:09)
[2022-03-24] MEDS: INSULIN (LEVEMIR) 100 UNITS/ML UNITS SQ SCH (22:14)
[2022-03-25] MEDS: AMMONIUM LACTATE 12% LOTION 225 GM BOTTLE TP SCH ×3 (00:09→21:26)
[2022-03-25] MEDS: GABAPENTIN 300 MG CAPSULE PO SCH ×3 (06:10→21:24)
[2022-03-25] MEDS: PANTOPRAZOLE 40 MG TABLET PO SCH (10:24)
[2022-03-25] MEDS: METOPROLOL TARTRATE 25 MG TABLET (FP) PO SCH ×2 (10:24→21:24)
[2022-03-25] MEDS: AMOX TR/POT CLAV 500MG/125MG TABLETS (FP) PO SCH ×2 (10:24→17:58)
[2022-03-25] MEDS: EZETIMIBE 10 MG TABLET (FP) PO SCH (10:24)
[2022-03-25] MEDS: MINERAL OIL/PET HY-PHL TOPICAL OINTMENT 454 GM JAR TP SCH (10:25)
[2022-03-25] MEDS: BUDESONIDE/FORMETEROL FUMARATE 160/4.5 mcg INHALER IH SCH ×2 (10:26→21:27)
[2022-03-25] MEDS: TIOTROPIUM BROMIDE 2.5 MCG (SPIRIVA) RESPIMAT INHALER IH SCH (10:26)
[2022-03-25] MEDS: ASPIRIN COATED 81 MG TABLET.EC PO SCH (17:58)
[2022-03-25 18:09] VITALS: RESP 18
[2022-03-25] MEDS: INSULIN (LEVEMIR) 100 UNITS/ML UNITS SQ SCH (21:23)
[2022-03-25] MEDS: LOSARTAN POTASSIUM 50 MG TABLET PO SCH (21:25)
[2022-03-25] MEDS: ATORVASTATIN CA 80 MG TABLET (FP) PO SCH (21:25)
[2022-03-26] MEDS: GABAPENTIN 300 MG CAPSULE PO SCH ×3 (06:39→21:49)
[2022-03-26] MEDS: EZETIMIBE 10 MG TABLET (FP) PO SCH (10:03)
[2022-03-26] MEDS: PANTOPRAZOLE 40 MG TABLET PO SCH (10:04)
[2022-03-26] MEDS: METOPROLOL TARTRATE 25 MG TABLET (FP) PO SCH ×2 (10:04→21:49)
[2022-03-26] MEDS: AMOX TR/POT CLAV 500MG/125MG TABLETS (FP) PO SCH ×2 (10:04→17:09)
[2022-03-26] MEDS: ASPIRIN COATED 81 MG TABLET.EC PO SCH (10:05)
[2022-03-26] MEDS: TIOTROPIUM BROMIDE 2.5 MCG (SPIRIVA) RESPIMAT INHALER IH SCH (10:06)
[2022-03-26] MEDS: BUDESONIDE/FORMETEROL FUMARATE 160/4.5 mcg INHALER IH SCH ×2 (10:06→21:55)
[2022-03-26] MEDS: AMMONIUM LACTATE 12% LOTION 225 GM BOTTLE TP SCH ×2 (10:06→21:55)
[2022-03-26] MEDS: MINERAL OIL/PET HY-PHL TOPICAL OINTMENT 454 GM JAR TP SCH ×2 (10:06→10:13)
[2022-03-26] MEDS: INSULIN (LEVEMIR) 100 UNITS/ML UNITS SQ SCH (21:48)
[2022-03-26] MEDS: ATORVASTATIN CA 80 MG TABLET (FP) PO SCH (21:49)
[2022-03-26] MEDS: LOSARTAN POTASSIUM 50 MG TABLET PO SCH (21:54)
[2022-03-26] MEDS: TICAGRELOR 90 MG TABLET PO SCH (23:02)
[2022-03-27] MEDS: GABAPENTIN 300 MG CAPSULE PO SCH ×2 (06:10→13:05)
[2022-03-27] MEDS ORDERED: ALBUTEROL SO4 HFA INHALER IH ONE (06:27)
[2022-03-27 09:00] VITALS: BP 145/64; PULSE 65; TEMP 98
[2022-03-27] MEDS: METOPROLOL TARTRATE 25 MG TABLET (FP) PO SCH (09:01)
[2022-03-27] MEDS: EZETIMIBE 10 MG TABLET (FP) PO SCH (09:01)
[2022-03-27] MEDS: ASPIRIN COATED 81 MG TABLET.EC PO SCH (09:01)
[2022-03-27] MEDS: PANTOPRAZOLE 40 MG TABLET PO SCH (09:01)
[2022-03-27] MEDS: AMOX TR/POT CLAV 500MG/125MG TABLETS (FP) PO SCH (09:01)
[2022-03-27] MEDS: TICAGRELOR 90 MG TABLET PO SCH (09:02)
[2022-03-27] MEDS: TIOTROPIUM BROMIDE 2.5 MCG (SPIRIVA) RESPIMAT INHALER IH SCH (09:02)
[2022-03-27] MEDS: BUDESONIDE/FORMETEROL FUMARATE 160/4.5 mcg INHALER IH SCH (09:02)
[2022-03-27] MEDS: AMMONIUM LACTATE 12% LOTION 225 GM BOTTLE TP SCH (09:05)
[2022-03-27] MEDS: MINERAL OIL/PET HY-PHL TOPICAL OINTMENT 454 GM JAR TP SCH (10:30)
== END 2022-03-27 13:45 | disposition home or self-care (01) | DRG 256 ==
LOC: JER 13:51 → JERBED 18:43 → J6W 20:40 → J5S 03-24 12:39
PROVIDERS: ADMIT Internal Medicine; ATTEND Internal Medicine
PROC: 0Y6V0Z0 Detachment at Right 4th Toe, Complete, Open Approach (ICD-10-PCS; 2022-03-24)
PROC: 0Y6T0Z0 Detachment at Right 3rd Toe, Complete, Open Approach (ICD-10-PCS; principal; 2022-03-24 11:00)
DX: E11.52 Type 2 diabetes mellitus with diabetic peripheral angiopathy with gangrene (principal); I96 Gangrene, not elsewhere classified; M86.671 Other chronic osteomyelitis, right ankle and foot; E11.42 Type 2 diabetes mellitus with diabetic polyneuropathy; I48.0 Paroxysmal atrial fibrillation; I10 Essential (primary) hypertension; E78.5 Hyperlipidemia, unspecified; M10.9 Gout, unspecified; E11.65 Type 2 diabetes mellitus with hyperglycemia; K21.9 Gastro-esophageal reflux disease without esophagitis; I65.22 Occlusion and stenosis of left carotid artery; I25.10 Atherosclerotic heart disease of native coronary artery without angina pectoris; Z86.73 Personal history of transient ischemic attack (TIA), and cerebral infarction without residual deficits
CPT/HCPCS: 0241U-QW; 36415; 73610-TC-LT-FY; 73630-TC-LT; 73630-TC-RT-FY; 80048; 80053; 82962; 83036; 83735; 85025; 85027; 85651; 86140; 86850; 86900; 86901; 87040; 88305-TC; 88311-TC; 93005; 93010; 93926-TC; 94760; 99284-25